=== PATIENT | female | born 1935 | race Caucasian/White ===

== ENCOUNTER 2019-12-25 16:23 | Outpatient (CLI) | payer MEDICARE, BC | END 2019-12-25 16:24 | disposition critical access hospital (66) | LOC: EMS 16:23 | PROVIDERS: ATTEND Surgery | DX: M25.552 Pain in left hip (principal) | CPT/HCPCS: A0425; A0429 ==

== ENCOUNTER 2019-12-25 17:12 | Inpatient (IN) | payer MEDICARE, BC ==
[2019-12-25] MEDS ORDERED: MORPHINE 2 MG/ML CARPUJECT IVP STA (17:32)
[2019-12-25] MEDS ORDERED: ONDANSETRON 4 MG/2 ML VIAL IVP STA (17:32)
--- NOTE | 2019-12-25 17:40 | ED Physician Documentation ---
History of Present Illness - Stated complaint Stated Complaint: GLF - Chief complaint Chief Complaint: Trauma Abd - History obtained from History obtained from: Patient - Additonal information Additional information: Pt presents w/ left groin pain after falling 2 days ago and again today. Per , pt fell two days ago in the garage. He thought she just "pulled something" so he got her a wheelchair to use at home. Today she was at home and was upstairs. Pt got out of the wheelchair and tried to go to the restroom and slipped while sitting down. She fell to the ground unwitnessed. Did not hit her head and no loc. She states she stumbled when she was going to site down and denies any dizziness or prodromal sx. She was unable to get up due to the pain. Pt points to the vaginal area as the location of the pain. 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 hx/o htn, being evaluated by pcp for early dementia lives in [facility] w/ , but receives most primary care at Review of Systems Constitutional: reports: Reviewed and negative Cardiac: reports: Reviewed and negative Respiratory: reports: Reviewed and negative GI: reports: Reviewed and negative Skin: reports: Reviewed and negative Musculoskeletal: reports: Extremity pain, Joint pain, Other (nwb due to left hip pain) Neurologic: reports: Reviewed and negative Psychiatric: reports: Reviewed and negative Endocrine: reports: Reviewed and negative PD PAST MEDICAL HISTORY - Past Medical History Past Medical History: Yes Cardiovascular: None Respiratory: Pneumonia Neuro: Dementia Endocrine/Autoimmune: None Psych: Anxiety Musculoskeletal: Osteoporosis - Past Surgical History Past Surgical History: Yes Derm: Skin cancer surgery - Present Medications Home Medications: Ambulatory Orders Medication Instructions Recorded Confirmed PARoxetine HCL [Paroxetine HCl] 5 mg PO DAILY 09/25/12 12/25/19 lisinopriL [Lisinopril] 5 mg PO DAILY 09/25/12 12/25/19 - Allergies Allergies/Adverse Reactions: Allergies Allergy/AdvReac Type Severity Reaction Status Date / Time No Known Drug Allergies Allergy Verified 12/25/19 17:17 - Social History Does the pt smoke?: No Smoking Status: Never smoker Does the pt drink ETOH?: No Does the pt have substance abuse?: No PD ED PE NORMAL - Vitals Vital signs reviewed: Yes - General General: Alert and oriented X 3, No acute distress, Well developed/nourished - HEENT HEENT: Atraumatic, PERRL, EOMI, Moist mucous membranes, Pharynx benign - Neck Neck: Supple, no meningeal sign, No bony TTP, No JVD - Cardiac Cardiac: RRR, No murmur, No gallop, No rub, Strong equal pulses - Respiratory Respiratory: No respiratory distress, Clear bilaterally - Abdomen Abdomen: Normal bowel sounds, Soft, Non tender, Non distended - Female Female : Other (normal ext vaginal area) - Back Back: No CVA TTP, No spinal TTP - Derm Derm: Normal color, Warm and dry, No rash - Extremities Extremities: Other (left hip and pelvis ttp w/ ext rotation of the left hip) - Neuro Neuro: Alert and oriented X 3 Eye Opening: Spontaneous Motor: Obeys Commands Verbal: Oriented (pt is oriented x 3 but does exhibit some forgetfulness, mild confusion) GCS Score: 15 - Psych Psych: Normal mood, Normal affect Results - Vitals Vitals: Vital Signs - 24 hr 12/25/19 12/25/19 12/25/19 17:13 17:48 18:38 Temperature 37.5 C Heart Rate 107 H 101 H 99 Respiratory 20 13 13 Rate Blood Pressure 183/110 H 183/110 H 160/91 H O2 Saturation 97 100 98 Oxygen O2 Source Room air - EKG (time done) No standard instances Rate: Rate (enter#) (95) Rhythm: NSR [place]: Normal Intervals: Normal CO Ischemia: Normal ST segments Computer interpretation: Agree with computer - Labs Labs: Laboratory Tests 12/25/19 12/25/19 12/25/19 17:45 17:45 17:52 WBC 9.8 RBC 4.97 Hgb 14.6 Hct 42.2 MCV 84.9 MCH 29.4 MCHC 34.6 RDW 12.6 Plt Count 197 MPV 10.6 Neut # (Auto) 8.3 H Lymph # (Auto) 0.7 L [place] # (Auto) 0.6 Eos # (Auto) 0.1 Baso # (Auto) 0.0 Absolute Nucleated RBC 0.00 Nucleated RBC % 0.0 Sodium 133 L Potassium 3.7 Chloride 100 L Carbon Dioxide 21 Anion Gap 12.0 BUN 22 H Creatinine 1.1 H Estimated GFR (MDRD) 47 L Glucose 137 H Calcium 9.6 Urine Color YELLOW Urine Clarity CLEAR Urine pH 7.5 Ur Specific [place] 1.020 Urine Protein NEGATIVE Urine Glucose (UA) NEGATIVE Urine Ketones TRACE Urine Occult Blood SMALL H Urine Nitrite NEGATIVE Urine Bilirubin NEGATIVE Urine Urobilinogen 0.2 (NORMAL) Ur Leukocyte Esterase NEGATIVE Urine RBC 0-5 Urine WBC 0-3 Ur Squamous Epith Cells RARE Squamous Urine Bacteria Rare Ur Microscopic Review INDICATED Urine Culture Comments NOT INDICATED - Rads (name of study) No standard instances Radiology: See rad report PD MEDICAL DECISION MAKING - ED course Complexity details: reviewed results, re-evaluated patient, considered differential, d/w patient, d/w family ED course: Pt presented after a fall in the bathroom and was noted to have a left femoral neck fracture. No other injuries, reassuring labs. I spoke w/ Dr. Love who kindly agreed to see patient tomorrow for likely surgical intervention. Dr. Kelly has accepted pt to the hospitalist service for admission. I reviewed xray findings w/ pt and and plan for admission and likely surgery tomorrow. Departure - Departure Disposition: [facility] DC/Xfer Clinical Impression: Femoral neck fracture Qualifiers: Encounter type: initial encounter Fracture type: closed Laterality: left Qualified Code(s): S72.002A - Fracture of unspecified part of neck of left femur, initial encounter for closed fracture Condition: Good
--- NOTE | 2019-12-25 18:07 | XRAY Report ---
PROCEDURE: Chest 1 View X-Ray INDICATIONS: chest pain TECHNIQUE: One view of the chest was acquired. COMPARISON: None. FINDINGS: Surgical changes and devices: None. Lungs and pleura: No pleural effusions or pneumothorax. Diffuse interstitial prominence. No focal con solidation. Minimal streaky bibasilar opacities likely representing atelectasis. Mediastinum: Mediastinal contours appear normal. Heart size is normal. Bones and chest wall: No suspicious bony lesions. Overlying soft tissues appear unremarkable. IMPRESSION: Minimal diffuse interstitial prominence is nonspecific and may represent an inflammatory/infectious p rocess versus hypoventilatory changes as its appearance is less prominent with the more aerated image of the chest. No focal consolidations. Consider dedicated upright PA and lateral views of the chest when patient is able. Reviewed by: Abdullahi Lamar MD on 12/25/2019 6:06 PM [facility] Approved by: Abdullahi Lamar MD on 12/25/2019 6:06 PM PST Station ID: [id number]
--- NOTE | 2019-12-25 18:10 | XRAY Report ---
PROCEDURE: Hip w/Pelvis 2-3V LT INDICATIONS: fall, left hip pain TECHNIQUE: AP pelvis with lateral view(s) of the bilateral hip(s). COMPARISON: None. FINDINGS: Bones: There is a subcapital left femoral neck fracture with impaction of the distal fracture fragmen t. There is also mild lateral displacement of the distal fracture fragment. Pelvic ring appears intac t. No suspicious bony lesions. Soft tissues: The visualized bowel gas pattern is normal. No suspicious soft tissue calcifications. IMPRESSION: Displaced, impacted left subcapital femoral neck fracture. Reviewed by: Abdullahi Lamar MD on 12/25/2019 6:09 PM PST Approved by: Abdullahi Lamar MD on 12/25/2019 6:09 PM PST Station ID: [id number]
[2019-12-25 18:15] LABS: BASOPHILS % (AUTO) 0.3 %; EOSINOPHILS # (AUTO) 0.1 10^3/uL (0.0-0.7); EOSINOPHILS % (AUTO) 0.6 %; HGB - HEMOGLOBIN 14.6 g/dL (12.0-16.0); LYMPHOCYTES # (AUTO) 0.7 10^3/uL (1.5-3.5); LYMPHOCYTES % (AUTO) 7.6 %; MEAN CORPUSCULAR HEMOGLOBIN 29.4 pg (27.0-31.0); MEAN CORPUSCULAR HGB CONC 34.6 g/dL (32.0-36.0); MEAN CORPUSCULAR VOLUME 84.9 fL (81.0-99.0); MEAN PLATELET VOLUME 10.6 fL (7.9-10.8); MONOCYTES # (AUTO) 0.6 10^3/uL (0.0-1.0); MONOCYTES % (AUTO) 6.5 %; NEUTROPHILS # (AUTO) 8.3 10^3/uL (1.5-6.6); NEUTROPHILS % (AUTO) 84.7 %; PLT - PLATELET COUNT 197 10^3/uL (130-450); RED BLOOD COUNT 4.97 10^6/uL (4.20-5.40); RED CELL DISTRIBUTION WIDTH 12.6 % (12.0-15.0); WHITE BLOOD COUNT 9.8 x10^3/uL (4.8-10.8)
[2019-12-25 18:15] LABS: BILIRUBIN,URINE NEGATIVE (NEGATIVE); GLUCOSE, URINE (UA) NEGATIVE (NEGATIVE); KETONES,URINE (UA) TRACE mg/dL (NEGATIVE); LEUKOCYTE ESTERASE, URINE NEGATIVE (NEGATIVE); NITRITE,URINE NEGATIVE (NEGATIVE); OCCULT BLOOD,URINE SMALL (NEGATIVE); PH,URINE 7.5 PH (5.0-7.5); PROTEIN,URINE NEGATIVE (NEGATIVE); UROBILINOGEN,URINE 0.2 (NORMAL) E.U./dL (NORMAL)
[2019-12-25 18:21] LABS: CLARITY,URINE CLEAR (CLEAR)
[2019-12-25 18:23] LABS: CALCIUM 9.6 mg/dL (8.5-10.3); CREATININE 1.1 mg/dL (0.4-1.0)
[2019-12-25 18:33] LABS: BACTERIA,URINE Rare /HPF (None Seen); RBC,URINE 0-5 /HPF (0-5); SQUAMOUS EPITHELIAL CELL,UR RARE Squamous (<= Few)
[2019-12-25] MEDS ORDERED: ACETAMINOPHEN 325 MG TABLET PO PRN (19:16)
[2019-12-25] MEDS ORDERED: ONDANSETRON 4 MG/2 ML VIAL IVP PRN (19:16)
[2019-12-25] MEDS ORDERED: SODIUM CHLORIDE FLUSH 0.9% 10 ML SYRINGE IVP PRN (19:16)
--- NOTE | 2019-12-25 19:25 | HISTORY & PHYSICAL EXAMINATION ---
Chief Complaint - Chief Complaint Chief Complaint: Left hip pain status post mechanical fall History of Present Illness - Admitted From Admitted From:: [facility] ED - History Obtained From Records Reviewed: Yes History obtained from: Patient - History of Present Illness HPI Comment/Other: Patient is an 84-year-old female with medical history significant for hypertension and depression who was brought to the ED after a mechanical fall today. She was in the bathroom and went to stand when she slipped and fell. She did not hit her head or blackout. It appears she has been having a difficult time walking lately and has been prone to falls consequently her got a wheelchair for her to use to get around. Work-up in the ED included an x-ray of the hip and pelvis which showed a left impacted/displaced fracture of the femoral neck. Consequently the patient was presented for admission for further treatment. At bedside she denied chest pain, dyspnea, abdominal pain, nausea, vomiting, fever or chills. She rates her pain 9 out of 10 currently. The rest of her history is unremarkable. History - Past Medical History Cardiovascular: reports: Hypertension Neuro: reports: Dementia Endocrine/Autoimmune: reports: None Psych: reports: Depression, Anxiety Musculoskeletal: reports: Osteoporosis MRSA Hx?: No - Past Surgical History HEENT: reports: Tonsil/Adenoidectomy Derm: reports: Skin cancer surgery - Family & Social History Family History: Father: Cancer (unspecified) Living arrangement: At home Social History Notes: Patient lives at home with her . She does not smoke, drink alcohol or use recreational substances. She has been having difficulties getting around so has mostly been using a wheelchair. - POLST POLST Status: Full Code Meds/Allgy - Home Medications Home Medications: Ambulatory Orders Medication Instructions Recorded Confirmed PARoxetine HCL [Paroxetine HCl] 5 mg PO DAILY 09/25/12 12/25/19 lisinopriL [Lisinopril] 5 mg PO DAILY 09/25/12 12/25/19 - Allergies Allergies/Adverse Reactions: Allergies Allergy/AdvReac Type Severity Reaction Status Date / Time No Known Drug Allergies Allergy Verified 12/25/19 17:17 Review of Systems - Constitutional Constitutional: denies: Fever, Chills - Eyes Eyes: denies: Pain - Ears, Nose & Throat Ears, Nose & Throat: denies: Ear pain - Cardiovascular Cariovascular: denies: Irregular heart rate, Palpitations, Chest pain, Edema, Lightheadedness, Syncope - Respiratory Respiratory: denies: Cough, Wheezing, SOB at rest, SOB with exertion - Gastrointestinal Gastrointestinal: denies: Abdominal pain, Abdominal distention, Constipation, Diarrhea, Nausea, Vomiting - Genitourinary Genitourinary: denies: Dysuria, Frequency, Urgency, Hematuria - Musculoskeletal Musculoskeletal: denies: Muscle pain, Back pain, Muscle aches - Integumentary Integumentary: denies: Rash, Pruritis, Lesions, Dryness - Neurological Neurological: denies: General weakness, Focal weakness, Headache - Psychiatric Psychiatric: reports: Depression. denies: Anxiety - Endocrine Endocrine: denies: Polyuria, Polydypsia - Hematologic/Lymphatic Hematologic/Lymphatic: denies: Anemia, Bruising Prior Level of Functionality: Patient lives at home with her . She does not smoke, drink alcohol or use recreational substances. She has been having difficulties getting around so has mostly been using a wheelchair. Exam - Vital Signs Vital Signs: Vital Signs x48h Temp Pulse Resp BP Pulse Ox 12/25/19 18:38 99 13 160/91 H 98 12/25/19 17:48 101 H 13 183/110 H 100 12/25/19 17:13 37.5 C 107 H 20 183/110 H 97 - Physical Exam General Appearance: positive: Alert, Moderate distress Eyes Bilateral: positive: PERRL, EOMI ENT: positive: No signs of dehydration Neck: positive: No JVD, Trachea midline Respiratory: positive: Chest non-tender, No respiratory distress, Breath sounds nml. negative: Wheezes, Rales, Rhonchi Cardiovascular: positive: Regular rate & rhythm Abdomen: positive: Non-tender, Nml bowel sounds, No distention. negative: Guarding, Rebound Skin: positive: Color nml, No rash, Warm, Dry Extremities: positive: Nml appearance, No pedal edema Neurologic/Psychiatric: positive: Oriented x3, Mood/affect nml Conclusion/Plan - Problem List (1) Femoral neck fracture Conclusion/Plan: Left-sided. Displaced/impacted subcapital femoral neck fracture. Patient will be made n.p.o. at midnight. Patient receiving IV hydration with D5 W half-normal saline with 20 mEq of potassium chloride at 125ml/hr We will manage pain with Tylenol, oxycodone and all morphine. Dr. Tre Love with orthopedic surgery was contacted by the ED and expected to see the patient in consult. Qualifiers: Encounter type: initial encounter Fracture type: closed Laterality: left Qualified Code(s): S72.002A - Fracture of unspecified part of neck of left fem ur, initial encounter for closed fracture (2) Hypertension Conclusion/Plan: Patient's blood pressure is currently elevated between 160 and 180 systolically. This is likely exacerbated by pain. Anticipating improvement in blood pressure once pain is appropriately addressed. Patient is on lisinopril at home. Will continue. If indicated/needed we will also order a as needed medication for blood pressure. (3) Depression Conclusion/Plan: Patient is on Paxil 5 mg p.o. daily. Will continue. (4) Pre-op evaluation Conclusion/Plan: According to the NSQIP surgical risk calculator, the patient's risk for serious complications during surgery is 5.0%. Her risk of any complication during surgery is 5.3%. These are considerably below average risk of 11.5 and 12.5% respectively. The predicted length of hospital stay is 2.5 days. Twelve-lead EKG done in the ED showed poor R wave progression and an old inferior infarct. Patient currently does not have any chest pain. Patient is not on any cardiovascular medications except for lisinopril. Patient is currently medically optimized for surgery. - Lab Results Fish Bones: 12/25/19 17:45 12/25/19 17:45 Core Measures - Anticipated LOS I expect patient to be DC'd or transferred within 96 hours.: Yes - DVT/VTE - Prophylaxis VTE/DVT Device ordered at admit?: Yes
[2019-12-25 19:36] LABS: BILIRUBIN,DIRECT 0.2 mg/dL (0.1-0.5); TOTAL PROTEIN 7.8 g/dL (6.7-8.2)
[2019-12-25] MEDS: D5NS W/20 MEQ KCL 1,000 ML IV SCH (19:37)
[2019-12-25 19:48] LABS: INR 1.2 (0.8-1.2)
[2019-12-25 20:06] LABS: C. PNEUMONIAE- RESP PCR PANEL NOT DETECTED
[2019-12-25] MEDS: oxyCODONE 5 MG TABLET PO PRN (21:42)
[2019-12-25] MEDS: SODIUM CHLORIDE FLUSH 0.9% 10 ML SYRINGE IVP SCH (23:19)
[2019-12-26] MEDS: D5NS W/20 MEQ KCL 1,000 ML IV SCH (03:23)
[2019-12-26] MEDS: MORPHINE 2 MG/ML CARPUJECT IVP PRN ×3 (03:27→13:12)
[2019-12-26 05:45] LABS: BASOPHILS % (AUTO) 0.3 %; EOSINOPHILS # (AUTO) 0.2 10^3/uL (0.0-0.7); EOSINOPHILS % (AUTO) 3.6 %; HGB - HEMOGLOBIN 12.9 g/dL (12.0-16.0); LYMPHOCYTES # (AUTO) 1.4 10^3/uL (1.5-3.5); LYMPHOCYTES % (AUTO) 21.8 %; MEAN CORPUSCULAR HEMOGLOBIN 29.4 pg (27.0-31.0); MEAN CORPUSCULAR VOLUME 86.3 fL (81.0-99.0); MEAN PLATELET VOLUME 9.7 fL (7.9-10.8); MONOCYTES # (AUTO) 0.7 10^3/uL (0.0-1.0); MONOCYTES % (AUTO) 11.1 %; NEUTROPHILS % (AUTO) 62.9 %; PLT - PLATELET COUNT 158 10^3/uL (130-450); RED BLOOD COUNT 4.39 10^6/uL (4.20-5.40); RED CELL DISTRIBUTION WIDTH 12.7 % (12.0-15.0); WHITE BLOOD COUNT 6.3 x10^3/uL (4.8-10.8)
[2019-12-26 05:56] LABS: CALCIUM 8.7 mg/dL (8.5-10.3); CREATININE 0.9 mg/dL (0.4-1.0)
--- NOTE | 2019-12-26 07:43 | CONSULTATION NOTE ---
Referring Provider Consult Date: 12/26/19 Chief Complaint - Chief Complaint Chief Complaint: LBP and left hip pain History of Present Illness - Admitted From Admitted From:: ER - History Obtained From Records Reviewed: EMR History obtained from: patient - History of Present Illness HPI Comment/Other: The patient was seen on [facility] with regards to a chief complaint of LEFT hip pain. Her low back is actually more painful at this time. The patient sustained a UNWITNESSED fall onto their LEFT side. Simple mechanical fall. Unable to weight bear at the scene. The patient denies any shortness of breath, chest pain or palpitations precipitating the fall. Patient denies any open wounds, numbness or tingling to the extremity. The patient normally ambulates WITHOUT the use of a walking aid, and IS a community ambulator. Previous DEXA: several years ago. Previous osteoporotic or fragility fracture: None. Previous treatment for osteoporosis: none. the pain is located in the midline low back and groin and DOES RADIATE. SEVERE in nature. Aggravated with movement, alleviated with immobilization and rest. Denies numbness or tingling to the foot. History - Past Medical History Cardiovascular: reports: Hypertension Respiratory: reports: Pneumonia Neuro: reports: Dementia Endocrine/Autoimmune: reports: None Psych: reports: Depression, Anxiety Musculoskeletal: reports: Osteoporosis MRSA Hx?: No - Past Surgical History HEENT: reports: Tonsil/Adenoidectomy Derm: reports: Skin cancer surgery - Family & Social History Family History: Father: Cancer (unspecified) Living arrangement: At home Social History Notes: Patient lives at home with her . She does not smoke, drink alcohol or use recreational substances. She has been having difficulties getting around so has mostly been using a wheelchair. - POLST POLST Status: Full Code Meds/Allgy - Home Medications Home Medications: Ambulatory Orders Medication Instructions Recorded Confirmed PARoxetine HCL [Paroxetine HCl] 5 mg PO DAILY 09/25/12 12/25/19 lisinopriL [Lisinopril] 5 mg PO DAILY 09/25/12 12/25/19 - Allergies Allergies/Adverse Reactions: Allergies Allergy/AdvReac Type Severity Reaction Status Date / Time No Known Drug Allergies Allergy Verified 12/25/19 17:17 Review of Systems - Musculoskeletal Musculoskeletal: reports: Other (back pain) Exam - Vital Signs Reviewed Vital Signs: Yes Vital Signs: Vital Signs x48h Temp Pulse Pulse Resp BP Pulse Ox 12/26/19 05:00 36.9 C 83 14 127/69 96 12/26/19 00:09 37.5 C 99 13 98 12/25/19 23:39 37.2 C 92 22 123/66 95 - Physical Exam General Appearance: positive: No acute distress, Alert, Other (Pleasantly confused) Eyes Bilateral: positive: Normal inspection ENT: positive: ENT inspection nml Neck: positive: Nml inspection Respiratory: positive: No respiratory distress Cardiovascular: positive: Regular rate & rhythm, Other (Warm well perfused feet) Peripheral Pulses: positive: 2+ Abdomen: positive: Non-tender Back: positive: Other (Midline tenderness at the lower lumbar levels and over the sacrum.) Skin: positive: Other (Intact) Extremities: positive: Other (Left leg is slightly short. Range of motion not attempted due to pain.) Neurologic/Psychiatric: positive: Motor nml, Sensation nml, Other (Pleasantly confused) Conclusion/Plan - Diagnosis Diagnosis: Displaced left femoral neck fracture, Acute midline low back pain - Plan Plan: the patient has sustained a Lefthip fracture. Surgical intervention is indicated. We have discussed operative and non-operative management today. I have discussed this with the patients next of kin. We have discussed the pros and cons of total hip arthroplasty versus hemiarthroplasty, including the Increased risk of dislocation,increased operative time and blood loss with a total hip versus decreased risk of second surgery down the road. The patient's agrees that total hip arthroplasty is more likely to be the better option.We have discussed the risks of surgery in general including but not limited to the risk of anesthesia, infection, blood loss, and nerve or blood vessel damage. We have also discussed the risk of intra-operative fracture, ongoing pain, and leg length discrepancy. We have discussed strategies for prevention of infection, perioperative pain management and prevention of blood clots. After discussion of the risks and benefits of surgery, the patient has elected to proceed with Left total hip arthroplasty. No guarantees have been made. All questions have been answered. With regards to her midline lower back and sacral pain, CT scan has been ordered.Following surgery the patient will require a front wheeled walker for safe ambulation and activities of daily living - Lab Results Fish Bones: 12/26/19 05:17 12/26/19 05:17 - Diagnostic Imaging Results Diagnostic Imaging Results: positive: Final report reviewed, Read independently
[2019-12-26] MEDS ORDERED: lisinopriL 5 MG TABLET PO SCH (09:00)
[2019-12-26] MEDS: oxyCODONE 5 MG TABLET PO PRN (09:07)
[2019-12-26] MEDS ORDERED: D5NS W/20 MEQ KCL 1,000 ML IV SCH (10:31)
--- NOTE | 2019-12-26 10:37 | CT Report ---
PROCEDURE: PELVIS WO INDICATIONS: sacral pain after fall TECHNIQUE: Noncontrast 3 mm axial sections acquired through the bony pelvis, with coronal and sagittal reformatt ing. For radiation dose reduction, the following was used: automated exposure control, adjustment of mA and/or kV according to patient size. COMPARISON: Correlation is made with the prior hip and pelvis radiographs, 12/25/2019. Correlation i s also made with the accompanying lumbar spine CT, 12/26/2019. FINDINGS: Image quality: Excellent. Bones: There is a comminuted, moderately displaced, impacted fracture of the left femoral neck. No d islocation can be seen. No fractures of the bones of the pelvis can be seen. In this patient with this given history, scrutiny is given to the sacrum. No fractures of the sacrum or coccyx can be seen. 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 Degenerative changes are seen throughout, including involving t he visualized lower lumbar spine, which are worst at the L5-S1 level. Soft tissues: A Sykes catheter is seen, decompressing the bladder. No dilated loops of small bowel a re seen. No free air or significant free fluid can be seen. No inguinal hernias or enlarged inguinal lymph nodes are seen. The uterus is atrophic. No adnexal masses are seen. IMPRESSION: Comminuted, impacted left femoral neck fracture. No abnormality or of the sacrum or coccyx can be seen. Incidental note is made of: Osteitis pubis Sykes catheter Focal L5-S1 degenerative change Reviewed by: Don Mejia MD on 12/26/2019 9:36 AM [facility] Approved by: Don Mejia MD on 12/26/2019 9:36 AM [facility] Station ID: [id number]
--- NOTE | 2019-12-26 10:42 | CT Report ---
PROCEDURE: LUMBAR SPINE WO INDICATIONS: midline lumbar pain after fall TECHNIQUE: Noncontrast 3 mm thick sections acquired from the T12 level to the sacrum. Sagittal and coronal refo rmats were constructed. For radiation dose reduction, the following was used: automated exposure co ntrol, adjustment of mA and/or kV according to patient size. COMPARISON: Correlation is made with the accompanying pelvis CT, 12/26/2019. FINDINGS: Image quality: Excellent. Bones: There is normal bony alignment. No acute vertebral body compression fractures. No suspiciou s lytic or blastic bony lesions. Central spinal caliber is of normal overall caliber. No pars defec ts. T12-L1: No significant abnormality is seen. L1-L2: The disc height is relatively well preserved. Moderate disc bulge is seen, which is eccentr ic to the right. There is moderate bilateral neuroforaminal narrowing seen. Mild to moderate central canal narrowing is seen. L2-L3: The disc height is well-preserved. Moderate disc bulge is seen, which is eccentric to the r ight. Moderate bilateral neural foraminal narrowing is seen. Mild central canal narrowing is seen . L3-L4: The disc height is well-preserved. Moderate disc bulge is seen, which is eccentric to the le ft. Moderate bilateral neuroforaminal narrowing is seen, left worse than right. Mild to moderate cent ral canal narrowing is seen. L4-L5: The disc height is well-preserved. At least moderate disc bulge is seen, with a central disc protrusion. Moderate to prominent facet hypertrophy can be seen. There is moderate to severe bilater al neuroforaminal narrowing seen. Moderate to severe central canal narrowing is also seen. L5-S1: At least moderate loss of disc height can be seen. Endplate irregularity and sclerosis can b e seen. Bridging anterior osteophytes are seen. Moderate facet hypertrophy is seen. There is at l east moderate bilateral neuroforaminal narrowing seen, right worse than left. Mild central canal herman rowing is seen. Soft tissues: No retroperitoneal masses or hematomas. Visualized aorta is normal in caliber. There is a small hiatal hernia. IMPRESSION: No acute fractures are seen. Lower lumbar spine degenerative changes are seen. Incidental note is made of: Small hiatal hernia Reviewed by: Don Mejia MD on 12/26/2019 9:41 AM [facility] Approved by: Don Mejia MD on 12/26/2019 9:41 AM [facility] Station ID: [id number]
[2019-12-26] MEDS: PARoxetine 10 MG TABLET PO SCH (10:58)
[2019-12-26] MEDS: SODIUM CHLORIDE FLUSH 0.9% 10 ML SYRINGE IVP SCH ×5 (10:58→22:00)
--- NOTE | 2019-12-26 11:52 | ANESTHESIA ---
Pre-Anesthesia VS, & Labs - Diagnosis Diagnosis Displaced left femoral neck fracture, Acute midline low back pain - Procedure L anterior CHAIM Vital Signs: Temp Pulse Resp BP Pulse Ox 37.0 C 91 20 140/80 H 98 12/26/19 08:01 12/26/19 08:01 12/26/19 08:01 12/26/19 08:01 12/26/19 08:01 Height: 5 ft 4 in Weight (kg): 72.5 kg Body Mass Index: 27.4 BMI Classification: Overweight - NPO >8 hours - Is Patient ?: No - Lab Results Current Lab Results: Laboratory Tests 12/26/19 05:17: Sodium 136, Potassium 3.8, Chloride 104, Carbon Dioxide 23, Anion Gap 9.0, BUN 15, Creatinine 0.9, Estimated GFR (MDRD) 60 L, Glucose 143 H, Calcium 8.7 12/26/19 05:17: WBC 6.3, RBC 4.39, Hgb 12.9, Hct 37.9, MCV 86.3, MCH 29.4, MCHC 34.0, RDW 12.7, Plt Count 158, MPV 9.7, Neut # (Auto) 4.0, Lymph # (Auto) 1.4 L, Richardson # (Auto) 0.7, Eos # (Auto) 0.2, Baso # (Auto) 0.0, Absolute Nucleated RBC 0.00, Nucleated RBC % 0.0 12/25/19 20:12: Blood Type B POSITIVE, Antibody Screen NEGATIVE 12/25/19 19:45: PT 13.0 H, INR 1.2 12/25/19 17:45: Total Bilirubin 1.0, Direct Bilirubin 0.2, AST 29, ALT 29, Alkaline Phosphatase 64, Total Protein 7.8, Albumin 4.0, Globulin 3.8 12/25/19 17:45: Sodium 133 L, Potassium 3.7, Chloride 100 L, Carbon Dioxide 21, Anion Gap 12.0, BUN 22 H, Creatinine 1.1 H, Estimated GFR (MDRD) 47 L, Glucose 137 H, Calcium 9.6 12/25/19 17:45: WBC 9.8, RBC 4.97, Hgb 14.6, Hct 42.2, MCV 84.9, MCH 29.4, MCHC 34.6, RDW 12.6, Plt Count 197, MPV 10.6, Neut # (Auto) 8.3 H, Lymph # (Auto) 0.7 L, Richardson # (Auto) 0.6, Eos # (Auto) 0.1, Baso # (Auto) 0.0, Absolute Nucleated RBC 0.00, Nucleated RBC % 0.0 12/25/19 05:17: Blood Type Recheck B POSITIVE Lab results reviewed: Yes Fish Bones: 12/26/19 05:17 12/26/19 05:17 Home Medications and Allergies Home Medications: Ambulatory Orders Citalopram [CeleXA] 10 mg PO DAILY 12/26/19 Triamterene/Hydrochlorothiazid [Triamterene-Hctz 37.5-25 mg Tb] 1 tab PO DAILY 12/26/19 Active Medications Acetaminophen (Tylenol) 650 mg PO Q4HR PRN PRN Reason: Pain 1 to 4 Last Admin: 12/25/19 22:01 Dose: 650 mg Documented by: Calcium Citrate () 250 mg PO DAILY [facility] Cholecalciferol (Vitamin D3) 800 unit PO DAILY [facility] Potassium Chloride/Dextrose/Sod Cl () 1,000 mls @ 83.3 mls/hr IV .Q12H1M [facility] Last Admin: 12/26/19 11:07 Dose: 83.3 mls/hr Documented by: Lisinopril (Zestril) 5 mg PO DAILY [facility] Last Admin: 12/26/19 11:07 Dose: 5 mg Documented by: Morphine Sulfate (Morphine (Carpuject)) 2 mg IVP Q2HR PRN PRN Reason: Pain 8 to 10 Last Admin: 12/26/19 10:25 Dose: 2 mg Documented by: Ondansetron HCl (Zofran Inj) 4 mg IVP Q6HR PRN PRN Reason: Nausea / Vomiting Oxycodone HCl (Roxicodone) 5 mg PO Q4HR PRN PRN Reason: Pain 5 to 7 Last Admin: 12/26/19 09:07 Dose: 5 mg Documented by: Paroxetine HCl (Paxil) 5 mg PO DAILY [facility] Last Admin: 12/26/19 10:58 Dose: Not Given Documented by: Sodium Chloride (Normal Saline Flush 0.9%) 10 ml IVP PRN PRN PRN Reason: NEEDED PER PROVIDER ORDERS Sodium Chloride (Normal Saline Flush 0.9%) 10 ml IVP 0100,0900,1700 [facility] Last Admin: 12/26/19 10:58 Dose: Not Given Documented by: lisinopriL [Lisinopril] 5 mg PO DAILY 09/25/12 Citalopram [CeleXA] 10 mg PO DAILY 12/26/19 Triamterene/Hydrochlorothiazid [Triamterene-Hctz 37.5-25 mg Tb] 1 tab PO DAILY 12/26/19 Allergies/Adverse Reactions: Allergies Allergy/AdvReac Type Severity Reaction Status Date / Time No Known Drug Allergies Allergy Verified 12/25/19 17:17 Anes History & Medical History - Anesthetic History Anesthesia Complications: reports: No previous complications Family history of Anesthesia Complications: Denies Family history of Malignant Hyperthermia: Denies - Medical History Cardiovascular: reports: Hypertension, Valve disorder (aortic stenosis, mitral regurg) Pulmonary: reports: Pneumonia Gastrointestinal: reports: None Urinary: reports: None Neuro: reports: Dementia Musculoskeletal: reports: Osteoporosis Endocrine/Autoimmune: reports: None Smoking Status: Never smoker - Surgical History Eyes Ears Nose Throat (EENT): Tonsil/Adenoidectomy Dermatologic: Skin cancer surgery Exam General: Alert, Oriented x3, Cooperative Dental: WNL Mouth Openin Fingerbreadth Neck Mobility: Normal Mallampati classification: II Thyromental Distance: 4-6 cm Respiratory: Lungs clear, Normal breath sounds, No respiratory distress Cardiovascular: Regular rate, Other (systolic murmur) Neurological: Normal speech Mental/Cognitive Status: Alert/Oriented X3, Normal for patient Cognitive Status: Within normal limits Plan Anesthesia Type: General, Fascia Iliaca Block Regional Block: Per Surgeon's request for Post Op pain control Consent for Procedure(s) Verified and Reviewed: Yes Code Status: Attempt Resuscitation ASA classification: 3-Severe systemic disease Is this case an emergency?: No
--- NOTE | 2019-12-26 12:03 | PROVIDER PROGRESS NOTE ---
Assessment/Plan - Problem List (1) Femoral neck fracture Qualifiers: Encounter type: initial encounter Fracture type: closed Laterality: left Qualified Code(s): S72.002A - Fracture of unspecified part of neck of left femur, initial encounter for closed fracture Assessment/Plan: 12/25 pt report she had pain when she tried to move her left leg related to her fall, and left femoral neck fracture. surgeon plan to have surgery on this afternoon. Pt report she did not know she had heart murmur and did not have hx of cardiac problem beside her HTN. I report her ECHO finding, reserved EF but mi ld aortic stenosis and moderate to severe mitral and Tricuspid regurgitation to pt, discussed the risk of surgery and possible complication s/p of surgery. she understood the risk and want to go ahead to have surgery. I called pt's surgeon Dr. Love, and report the ECHO finding. anesthesiologist Derrick came to office, I report ECHO finding to him as well. (2) Hypertension stable, resume home meds (3) Depression Patient is on Paxil 5 mg p.o. daily. Will continue. (4) Pre-op evaluation night doctor had Patient is currently medically optimized for surgery. will followup after pt has surgery. - Current Meds Current Meds: Current Medications Generic Name Dose Route Start Last Admin Trade Name Freq PRN Reason Stop Dose Admin Acetaminophen 650 mg 12/25/19 19:16 12/25/19 22:01 Tylenol PO 650 mg Q4HR PRN Administration Pain 1 to 4 Potassium Chloride/Dextrose/Sod Cl 1,000 mls @ 83.3 mls/hr 12/26/19 10:31 12/26/19 11:07 IV 83.3 mls/hr .Q12H1M [facility] Administration Lisinopril 5 mg 12/26/19 09:00 12/26/19 11:07 Zestril PO 5 mg DAILY [facility] Administration Morphine Sulfate 2 mg 12/25/19 19:16 12/26/19 10:25 Morphine (Carpuject) IVP 2 mg Q2HR PRN Administration Pain 8 to 10 Oxycodone HCl 5 mg 12/25/19 19:16 12/26/19 09:07 Roxicodone PO 5 mg Q4HR PRN Administration Pain 5 to 7 Paroxetine HCl 5 mg 12/26/19 09:00 12/26/19 10:58 Paxil PO Not Given DAILY [facility] Sodium Chloride 10 ml 12/26/19 01:00 12/26/19 10:58 Normal Saline Flush 0.9% IVP Not Given 0100,0900,1700 [facility] - Lab Result Fish Bone Diagrams: 12/26/19 05:17 12/26/19 05:17 - Additional Planning My Orders: My Active Orders 12/26/19 Osteoporosis Consult [CONS] Routine 12/26/19 08:50 Echo Transthoracic Complete [ECHO] Stat 12/26/19 10:31 D5ns W/20 Meq KCl 1,000 ml IV 83.3 mls/hr 12/27/19 09:00 Calcium Citrate 250 mg PO DAILY Cholecalciferol [Vitamin D3] 800 unit PO DAILY Subjective - Subjective Patient Reports: Feeling Better Objective Vital Signs: Vital Signs - 24 hr 12/25/19 12/25/19 12/25/19 17:13 17:48 18:38 Temperature 37.5 C Heart Rate 107 H 101 H 99 Heart Rate [ Brachial] Respiratory 20 13 13 Rate Blood Pressure 183/110 H 183/110 H 160/91 H Blood Pressure [Left Brachial artery] O2 Saturation 97 100 98 12/25/19 12/25/19 12/25/19 19:30 20:43 23:39 Temperature 37.2 C 37.2 C Heart Rate Heart Rate [ 100 93 92 Brachial] Respiratory 16 22 Rate Blood Pressure Blood Pressure 176/94 H 136/77 H 123/66 [Left Brachial artery] O2 Saturation 97 95 12/26/19 12/26/19 12/26/19 00:09 05:00 08:00 Temperature 37.5 C 36.9 C 37.0 C Heart Rate 99 Heart Rate [ 83 91 Brachial] Respiratory 13 14 20 Rate Blood Pressure Blood Pressure 127/69 140/80 H [Left Brachial artery] O2 Saturation 98 96 98 12/26/19 08:01 Temperature 37.0 C Heart Rate Heart Rate [ 91 Brachial] Respiratory 20 Rate Blood Pressure Blood Pressure 140/80 H [Left Brachial artery] O2 Saturation 98 Oxygen O2 Source Room air I&O (Last 24 Hrs): Intake and Output Totals x24h 12/24/19 12/25/19 12/26/19 23:59 23:59 23:59 Intake Total 855.356 1581.247 Output Total 600 900 Balance -191.667 681.247 General: Alert, Oriented x3, No acute distress HEENT: Atraumatic Neck: Supple Lymphatic: no adenopathy Neuro: Alert, Non Focal, Oriented Times 3 Cardiovascular: Regular rate, Normal S1, Normal S2 Respiratory: Chest non-tender, No respiratory distress, Breath sounds nml Abdomen: Normal bowel sounds, Soft Extremities: Normal pulses - Results Results: Laboratory Results WBC 6.3 x10^3/uL (4.8-10.8) 12/26/19 05:17 RBC 4.39 10^6/uL (4.20-5.40) 12/26/19 05:17 Hgb 12.9 g/dL (12.0-16.0) 12/26/19 05:17 Hct 37.9 % (37.0-47.0) 12/26/19 05:17 MCV 86.3 fL (81.0-99.0) 12/26/19 05:17 MCH 29.4 pg (27.0-31.0) 12/26/19 05:17 MCHC 34.0 g/dL (32.0-36.0) 12/26/19 05:17 RDW 12.7 % (12.0-15.0) 12/26/19 05:17 Plt Count 158 10^3/uL (130-450) 12/26/19 05:17 MPV 9.7 fL (7.9-10.8) 12/26/19 05:17 Neut # (Auto) 4.0 10^3/uL (1.5-6.6) 12/26/19 05:17 Lymph # (Auto) 1.4 10^3/uL (1.5-3.5) L 12/26/19 05:17 Russell # (Auto) 0.7 10^3/uL (0.0-1.0) 12/26/19 05:17 Eos # (Auto) 0.2 10^3/uL (0.0-0.7) 12/26/19 05:17 Baso # (Auto) 0.0 10^3/uL (0.0-0.1) 12/26/19 05:17 Absolute Nucleated RBC 0.00 x10^3/uL 12/26/19 05:17 Nucleated RBC % 0.0 /100WBC 12/26/19 05:17 PT 13.0 secs (9.9-12.6) H 12/25/19 19:45 INR 1.2 (0.8-1.2) 12/25/19 19:45 Sodium 136 mmol/L (135-145) 12/26/19 05:17 Potassium 3.8 mmol/L (3.5-5.0) 12/26/19 05:17 Chloride 104 mmol/L (101-111) 12/26/19 05:17 Carbon Dioxide 23 mmol/L (21-32) 12/26/19 05:17 Anion Gap 9.0 (6-13) 12/26/19 05:17 BUN 15 mg/dL (6-20) 12/26/19 05:17 Creatinine 0.9 mg/dL (0.4-1.0) 12/26/19 05:17 Estimated GFR (MDRD) 60 (>89) L 12/26/19 05:17 Glucose 143 mg/dL (70-100) H 12/26/19 05:17 Calcium 8.7 mg/dL (8.5-10.3) 12/26/19 05:17 Total Bilirubin 1.0 mg/dL (0.2-1.0) 12/25/19 17:45 Direct Bilirubin 0.2 mg/dL (0.1-0.5) 12/25/19 17:45 AST 29 IU/L (10-42) 12/25/19 17:45 ALT 29 IU/L (10-60) 12/25/19 17:45 Alkaline Phosphatase 64 IU/L (42-121) 12/25/19 17:45 Total Protein 7.8 g/dL (6.7-8.2) 12/25/19 17:45 Albumin 4.0 g/dL (3.2-5.5) 12/25/19 17:45 Globulin 3.8 g/dL (2.1-4.2) 12/25/19 17:45 Urine Color YELLOW 12/25/19 17:52 Urine Clarity CLEAR (CLEAR) 12/25/19 17:52 Urine pH 7.5 PH (5.0-7.5) 12/25/19 17:52 Ur Specific Fairborn 1.020 (1.002-1.030) 12/25/19 17:52 Urine Protein NEGATIVE mg/dL (NEGATIVE) 12/25/19 17:52 Urine Glucose (UA) NEGATIVE mg/dL (NEGATIVE) 12/25/19 17:52 Urine Ketones TRACE mg/dL (NEGATIVE) 12/25/19 17:52 Urine Occult Blood SMALL (NEGATIVE) H 12/25/19 17:52 Urine Nitrite NEGATIVE (NEGATIVE) 12/25/19 17:52 Urine Bilirubin NEGATIVE (NEGATIVE) 12/25/19 17:52 Urine Urobilinogen 0.2 (NORMAL) E.U./dL (NORMAL) 12/25/19 17:52 Ur Leukocyte Esterase NEGATIVE (NEGATIVE) 12/25/19 17:52 Urine RBC 0-5 /HPF (0-5) 12/25/19 17:52 Urine WBC 0-3 /HPF (0-5) 12/25/19 17:52 Ur Squamous Epith Cells RARE Squamous (<= Few) 12/25/19 17:52 Urine Bacteria Rare /HPF (None Seen) 12/25/19 17:52 Ur Microscopic Review INDICATED 12/25/19 17:52 Urine Culture Comments NOT INDICATED 12/25/19 17:52 Nasal Adenovirus (PCR) NOT DETECTED 12/25/19 19:05 Nasal B. parapertussis DNA (PCR) NOT DETECTED 12/25/19 19:05 Nasal Coronavir 229E PCR NOT DETECTED 12/25/19 19:05 Nasal Coronavir HKU1 PCR NOT DETECTED 12/25/19 19:05 Nasal Coronavir NL63 PCR NOT DETECTED 12/25/19 19:05 Nasal Coronavir OC43 PCR NOT DETECTED 12/25/19 19:05 Nasal Enterovir/Rhinovir PCR NOT DETECTED 12/25/19 19:05 Nasal Influenza B PCR NOT DETECTED 12/25/19 19:05 Nasal Influenza A PCR NOT DETECTED 12/25/19 19:05 Nasal Parainfluen 1 PCR NOT DETECTED 12/25/19 19:05 Nasal Parainfluen 2 PCR NOT DETECTED 12/25/19 19:05 Nasal Parainfluen 3 PCR NOT DETECTED 12/25/19 19:05 Nasal Parainfluen 4 PCR NOT DETECTED 12/25/19 19:05 Nasal RSV (PCR) NOT DETECTED 12/25/19 19:05 Nasal B.pertussis DNA PCR NOT DETECTED 12/25/19 19:05 Nasal C.pneumoniae (PCR) NOT DETECTED 12/25/19 19:05 Sae Human Metapneumo PCR NOT DETECTED 12/25/19 19:05 Nasal M.pneumoniae (PCR) NOT DETECTED 12/25/19 19:05 Nasal SARS-CoV-2 (PCR) NOT DETECTED 12/25/19 19:05 Blood Type B POSITIVE 12/25/19 20:12 Blood Type Recheck B POSITIVE 12/25/19 05:17 Antibody Screen NEGATIVE 12/25/19 20:12 ABX Reporting Has patient been on IV antibiotics over the past 48 hours?: No Current Medications - Current Medications Current Medications: Active Medications Acetaminophen (Tylenol) 650 mg PO Q4HR PRN PRN Reason: Pain 1 to 4 Last Admin: 12/25/19 22:01 Dose: 650 mg Documented by: Calcium Citrate () 250 mg PO DAILY [facility] Cholecalciferol (Vitamin D3) 800 unit PO DAILY [facility] Potassium Chloride/Dextrose/Sod Cl () 1,000 mls @ 83.3 mls/hr IV .Q12H1M [facility] Last Admin: 12/26/19 11:07 Dose: 83.3 mls/hr Documented by: Lisinopril (Zestril) 5 mg PO DAILY [facility] Last Admin: 12/26/19 11:07 Dose: 5 mg Documented by: Morphine Sulfate (Morphine (Carpuject)) 2 mg IVP Q2HR PRN PRN Reason: Pain 8 to 10 Last Admin: 12/26/19 10:25 Dose: 2 mg Documented by: Ondansetron HCl (Zofran Inj) 4 mg IVP Q6HR PRN PRN Reason: Nausea / Vomiting Oxycodone HCl (Roxicodone) 5 mg PO Q4HR PRN PRN Reason: Pain 5 to 7 Last Admin: 12/26/19 09:07 Dose: 5 mg Documented by: Paroxetine HCl (Paxil) 5 mg PO DAILY [facility] Last Admin: 12/26/19 10:58 Dose: Not Given Documented by: Sodium Chloride (Normal Saline Flush 0.9%) 10 ml IVP PRN PRN PRN Reason: NEEDED PER PROVIDER ORDERS Sodium Chloride (Normal Saline Flush 0.9%) 10 ml IVP 0100,0900,1700 [facility] Last Admin: 12/26/19 10:58 Dose: Not Given Documented by: lisinopriL [Lisinopril] 5 mg PO DAILY 09/25/12 Citalopram [CeleXA] 10 mg PO DAILY 12/26/19 Triamterene/Hydrochlorothiazid [Triamterene-Hctz 37.5-25 mg Tb] 1 tab PO DAILY 12/26/19
[2019-12-26] MEDS ORDERED: ROPIVACAINE 0.5% PF 20 ML AMPULE ONE ×2 (13:25→13:46)
[2019-12-26] MEDS ORDERED: KETOROLAC 30 MG/ML VIAL ONE (13:26)
--- NOTE | 2019-12-26 13:29 | PHARMACY PROGRESS NOTE ---
- Best Possible Medication History Admit Date and Time: 12/25/19 1844 Processed by: Pharmacy Medication History completed: Yes Patient Interview: Completed Secondary Source(s): Caregiver (PATIENT INTERVIEWED BY PHARMACY. PATIENT AND SPOUSE ABLE TO CONFIRM HOME MEDICATIONS ), Pharmacy records, Insurance records As the person ultimately responsible for medication therapy, providers are able to order a medication from an existing home medication list in [facility] via the "Reconcile Routine" prior to Confirmation of that medication by high school learning support teacher. Such practice is discouraged except when the physician, in their clinical judgment, deems that a medical need exists for a medication without regard to previous use.
[2019-12-26] MEDS ORDERED: EPINEPHrine 1 MG/ML AMP ONE (13:33)
[2019-12-26] MEDS ORDERED: LIDOCAINE-MPF 2% 5 ML VIAL IM ONE (14:07)
[2019-12-26] MEDS ORDERED: ePHEDrine 50 MG/ML VIAL IVP ONE (14:07)
[2019-12-26] MEDS ORDERED: ROCURONIUM 50 MG/5 ML VIAL IVP ONE (14:07)
[2019-12-26] MEDS ORDERED: DEXAMETHASONE 4 MG/ML VIAL IVP ONE (14:07)
[2019-12-26] MEDS ORDERED: ACETAMINOPHEN 1,000 MG/100 ML 100 ML IV ONE (14:07)
[2019-12-26] MEDS ORDERED: TRANEXAMIC ACID 1,000 MG/10 ML VIAL IV ONE (14:07)
[2019-12-26] MEDS ORDERED: PHENYLEPHRINE 10 MG/ML VIAL IV ONE (14:07)
[2019-12-26] MEDS ORDERED: ONDANSETRON 4 MG/2 ML VIAL IVP ONE (14:07)
[2019-12-26] MEDS ORDERED: MIDAZOLAM 2 MG/2 ML VIAL IVP ONE (14:07)
[2019-12-26] MEDS ORDERED: fentaNYL 100 MCG/2 ML VIAL IVP ONE (14:07)
[2019-12-26] MEDS ORDERED: PROPOFOL 200 MG/20 ML VIAL IVP ONE (14:07)
[2019-12-26] MEDS ORDERED: ceFAZolin 2 GM in SODIUM CHLORIDE 0.9% 100ML 100 ML IV ONE (14:10)
[2019-12-26] MEDS ORDERED: MORPHINE 2 MG/ML CARPUJECT IVP PRN (15:13)
[2019-12-26] MEDS ORDERED: HYDROmorphone 0.5 MG/0.5 ML SYRINGE IVP PRN ×2 (15:13→16:38)
[2019-12-26] MEDS ORDERED: ONDANSETRON 4 MG/2 ML VIAL IVP PRN ×2 (15:13→16:38)
[2019-12-26] MEDS ORDERED: NALOXONE 0.4 MG/ML VIAL IVP PRN (15:13)
[2019-12-26] MEDS ORDERED: METOCLOPRAMIDE 10 MG/2 ML VIAL IVP PRN (15:13)
[2019-12-26] MEDS ORDERED: ePHEDrine 50 MG/ML VIAL IVP PRN (15:13)
[2019-12-26] MEDS ORDERED: ATROPINE ABBOJECT 1 MG/10 ML SYRINGE IVP PRN (15:13)
[2019-12-26] MEDS ORDERED: fentaNYL 100 MCG/2 ML VIAL IVP PRN (15:13)
[2019-12-26] MEDS ORDERED: ROPIVACAINE 0.2% PF 20 ML AMPULE SUBQ ONE (15:56)
[2019-12-26] MEDS ORDERED: KETOROLAC 15 MG/ML VIAL IVP ONE (15:56)
[2019-12-26] MEDS ORDERED: EPINEPHrine 1 MG/ML AMP SUBQ ONE (15:58)
[2019-12-26] MEDS ORDERED: LACTATED RINGERS 1,000 ML IV SCH ×2 (16:00→17:00)
[2019-12-26] MEDS ORDERED: SODIUM CHLORIDE FLUSH 0.9% 10 ML SYRINGE IVP PRN ×2 (16:38→16:56)
[2019-12-26] MEDS ORDERED: BISACODYL 10 MG SUPP PR PRN (16:38)
[2019-12-26] MEDS ORDERED: oxyCODONE 5 MG TABLET PO PRN ×2 (16:38)
[2019-12-26] MEDS ORDERED: LACTATED RINGERS 1,000 ML IV ONE (16:39)
--- NOTE | 2019-12-26 16:50 | XRAY Report ---
PROCEDURE: OR C-Arm Procedure INDICATIONS: hip fx TECHNIQUE: Intraoperative fluoroscopic images of the left hip COMPARISON: 12/25/2019 FINDINGS: Limited intraoperative fluoroscopic images demonstrate interval postsurgical changes of left total hi p arthroplasty. Alignment appears anatomic. No gross hardware palpitations. IMPRESSION: Fluoroscopic support for left total hip arthroplasty. Please see operative report for further details . Reviewed by: Abdullahi Lamar MD on 12/26/2019 4:48 PM PST Approved by: Abdullahi Lamar MD on 12/26/2019 4:48 PM PST Station ID: [id number]
[2019-12-26] MEDS ORDERED: SODIUM CHLORIDE 0.9% 1,000 ML IV SCH (17:00)
[2019-12-26] MEDS ORDERED: SODIUM CHLORIDE FLUSH 0.9% 10 ML SYRINGE IVP SCH (17:00)
--- NOTE | 2019-12-26 17:00 | OPERATIVE REPORT ---
Operative Report - General Admit Date: 12/25/19 Procedure Date: 12/26/19 Planned Procedure: Left total hip arthroplasty Pre-Op Diagnosis: Displaced left subcapital hip fracture Procedure Performed: Left total hip arthroplasty Post Op Diagnosis: Same - Procedure Note Primary Surgeon: Ivan Secondary Surgeon: Leonila Anesthesia Technique: General ET tube Estimated Blood Loss (mL): 300 Complications: Undisplaced fracture of the calcar, treated intraoperatively with cerclage cables - Other Other Information/Narrative: Implants: [employer] R3 52 mm acetabular cup with a 0 mm highly cross-linked polyliner, anthology size 8 extended offset femoral stem, 36+0 femoral head Procedure: Anterior left total hip arthroplasty for femoral neck fracture Preamble: This relatively healthy active 84-year-old sustained a fall landing onto her left side. She sustained a displaced femoral neck fracture. After discussion of the pros and cons of hemiarthroplasty versus total hip, both the patient and her elected to proceed with left total hip arthroplasty. Patient was seen in preoperative holding area. Surgical consent was signed. Site was confirmed and marked. All questions were answered. Operative note: Patient was taken to the operating room and a general anesthetic was administered. Placed in supine position with all bony prominences well-padded. Hip was then prepped and draped in usual sterile fashion. Timeout was completed confirming patient, procedure and side. 4 inch incision was then made extending in oblique fashion from just lateral to the ASIS down the anterolateral thigh. Anterior border of the tensor fascia jay was identified and the overlying fascia was divided with cautery. Finger dissection then used to elevate muscle off the intermuscular septum and retractors were then placed over the inferior and superior aspects of the femoral neck. Capsulotomy then performed and sutures placed into the capsule to aid in retraction. Retractors then placed within the capsule and the femoral neck fracture was visualized. Femoral neck cut was completed, napkin ring was removed followed by the femoral head without difficulty. Acetabular retractors were then placed and the acetabulum sequentially reamed up to a final 51 mm reamer. Wound was thoroughly irrigated with normal saline. Under fluoroscopic guidance the 52 mm acetabular component was then fully seated in 45 degrees of lateral opening and 20 degrees of anteversion. A single screw was then inserted to augment fixation. Standard 0 degree liner was then inserted and fully seated with a mallet. I then turned my attention to the femoral side. Electrocautery was used to circumferentially release tissues at the proximal femur. The leg was then dropped and a deducted to deliver the femur into the wound. Proximal femur was then sequentially broached up to a size 6. Trial reduction was performed with a standard offset neck and 36+0 head. After each trial reduction, Betadine solution was allowed to sit in the wound.Fluoroscopy was then used to evaluate leg lengths and the leg was somewhat short. Hip was then dislocated and trial implants were removed. I then broached up to a size 8 and trialed once again with extended offset neck and a 36+0 head. Fluoroscopy was used and leg lengths were confirmed to be equal. As the hip was being a dislocated it was noted that there was nondisplaced fracture involving the medial calcar. 6 size broach was then placed into the canal and 2 cerclage cables were passed around the proximal femur. Cables were tightened crimped and cut. The definitive #8 extended offset femoral stem was then inserted. Definitive head was seated on the Coello taper and the hip was again reduced. Again fluoroscopy was used to confirm leg length. Wound was again thoroughly irrigated with normal saline on pulsatile lavage. Capsule was closed with #1 FiberWire. Peritubular tissue was infiltrated with a cocktail of ropivacaine, ketorolac and epinephrine. space closed with 0 Vicryl. The wound was then closed in layers with 2 OV lock, 3 OV lock and Dermabond for skin. Steri-Strips applied followed by sterile dressings.As dressings were being applied, the patient experienced an appoximatelt 30 second long episode of ventricular tachycardia. She was transferred to regular hospital bed and taken to the recovery room. Hospitalist was notified and saw the patient in recovery. Postoperative plan: Transfer to intensive care unit for monitoring.Check x-ray. Intravenous antibiotics for prophylaxis against infection. Aspirin 81 mg twice daily for 20 days for prophylaxis against deep vein thrombosis. Dressing change postop day 5 then as needed. Anterior hip dislocation precautions. Physical and Occupational Therapy consults. Probable discharge to half-way facility in 2 to 3 days days time.The patient will require a front wheeled walker for safe ambulation and to perform activities daily living.Follow-up in clinic in 10 to 14 days for wound check. Follow-up in 6 weeks with radiographs of the hip.
[2019-12-26 17:09] LABS: CALCIUM 8.2 mg/dL (8.5-10.3); CREATININE 1.1 mg/dL (0.4-1.0); MAGNESIUM 1.7 mg/dL (1.7-2.8)
--- NOTE | 2019-12-26 17:12 | XRAY Report ---
PROCEDURE: Chest 1 View X-Ray INDICATIONS: Hypotension status post hip replacement TECHNIQUE: One view of the chest was acquired. COMPARISON: 12/25/2019 FINDINGS: Surgical changes and devices: None. Lungs and pleura: Increased interstitial markings with cephalization of pulmonary vessels, findings w hich are new when compared with the prior study. Mediastinum: Mediastinal contours appear normal. Heart size is normal. Bones and chest wall: No suspicious bony lesions. Overlying soft tissues appear unremarkable. IMPRESSION: New increased interstitial markings and cephalization of pulmonary vessels, findings which suggest pu lmonary edema, potentially due to volume overload or cardiogenic in nature. Reviewed by: Jose R August MD on 12/26/2019 5:11 PM PST Approved by: Jose R August MD on 12/26/2019 5:11 PM PST Station ID: [id number]
--- NOTE | 2019-12-26 17:13 | XRAY Report ---
PROCEDURE: Pelvis 1 View INDICATIONS: Postoperative evaluation status post left total hip arthroplasty. TECHNIQUE: 1 view(s) of the pelvis acquired. COMPARISON: None. FINDINGS: Left total hip arthroplasty with no acute comp getting hardware feature. No yocha dehe bone fracture. Laurel ssly normal alignment of the hardware. IMPRESSION: Expected appearance of the left hip status post total arthroplasty. Reviewed by: Jose R August MD on 12/26/2019 5:12 PM PST Approved by: Jose R August MD on 12/26/2019 5:12 PM PST Station ID: [id number]
--- NOTE | 2019-12-26 17:20 | PROVIDER PROGRESS NOTE ---
Hospitalist Cross-cover Note - Cross-Cover Note Cross-Cover Note: Dr. Tre Love asked me to see the patient in PACU who he had just completed orthopedic hip surgery on, successfully. She was intubated for her anesthesia. She was extubated successfully. As she was about to leave the OR, the Anesthesiologist saw on telemetry about 30 sec of sustained narrow-complex tachycardia at rate 170. No rhythm strip was available. No BP was available. I saw the patient as she was being rolled into PACU on the [facility]. She was still somolent, respiratory rate 12, and she had witnessed snoring with possible apnea, O2 sat was 94% on supplemental O2 by Ventimask. Blood pressure was 70/50 and recycled to be 77 systolic. Heart rate was 102 in sinus tachycardia. The patient then had sudden SVT at a rate of 200 that slowed on its own to rate of 170 and suddenly broke and she went into sinus rhythm. The PSVT lasted >15 sec. This was caught on the telemetry strip. A chin thrust was performed by the PACU nurses, she had oral suctioning performed of significant amount of clear secretions. EKG, ABG and labs were dra regalado. In the ICU: BP 100 HR 100, she is awakening, has loud systolic murmur ABG: pH 7.29, pCO2 37, pO2 110, bicarb 18 EKG (which I interpreted myself): Sinus tachycardia rate of 111, she has Q waves in leads II, III, AVF and has lateral ST depressions in leads I, aVL, & V4 through V6. Since EKG from yesterday, the ST depressions are new, and there is no longer early R/S transition in V2. Just hours preop, the patient had a STAT echo done today because of a very loud heart murmur, which she new nothing about. Echo findings were of asymmetric septal hypertrophy but no resting outflow tract obstruction, normal LVEF (no inferior scar), a flattened septum from RV pressure overload, normal RV size and systolic function. The valves showed mild aortic stenosis, mild mitral stenosis, moderate to severe mitral regurg, moderate to severe tricuspid regurg, and severe pulmonary hypertension with PA pressure 65 mmHg. CXR: early CHF with cephalization seen Imp: PSVT Hypotension, in immediate post-op period. Metabolic acidosis. 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 , MS, MR, TR. Severe pulmonary HTN Successful hip surgery Mechanical fall at home causing hip fracture. Plan: Admit to ICU, on telemetry, on Hospitalist service, Ortho is consulting Another iv access requested. Continue Sykes. Monitor I's and O's. Obtain serial troponins, check BMP and Mg, check TSH Administer 3 amps bicarb in 1L NS, recheck pH by VBG Reverse her sedation (by Anesthesia), change diet to NPO for now. If SVT recurs, use Digoxin if BP low, or a Cardizem bolus or Cardizem drip if BP can tolerate Avoid volume depletion, (like with her HCTZ and Triampterene use), which will make her IHSS develop obstruction and will cause BP drop. Avoid afterload reducers (like with her Lisinopril use), which will promote LV contractility, and that will also make her IHSS develop obstruction and will cause BP drop. Her BP meds need to be with negative inotropic agents (like B-blockers or Cardizem or Verapimil). Chest CTA to eval for PE is planned. She will need evaluation and management soon of sleep apnea. Could use CPAP/BIPAP while in ICU here. She will need outpatient eval for CAD She will need a Camera Systems Engineer to follow her for her various cardiac problems. CRITICAL CARE TIME SPENT: 60 min
[2019-12-26 17:33] LABS: ABG PCO2 38 mmHg (34-45); ABG PO2 111 mmHg (80-100)
[2019-12-26 17:34] LABS: ABG BASE EXCESS -7.8 mmol/L (-2.0-3.0); ABG OXYGEN SATURATION 98 % (94-98); ABG TCO2 19.2 MMOL/L (21.0-29.0); ALLEN TEST POSITIVE
[2019-12-26] MEDS: ACETAMINOPHEN 325 MG TABLET PO SCH ×2 (17:44→22:54)
--- NOTE | 2019-12-26 17:46 | ANESTHESIA POST OP EVALUATION ---
Anesthesia Post Eval - Post Anesthesia Eval Vitals: Last Vital Signs Temp 36.6 C 12/26/19 17:05 Pulse 108 H 12/26/19 17:25 Resp 18 12/26/19 17:25 BP 100/60 12/26/19 17:25 Pulse Ox 95 12/26/19 17:25 CV Function Including HR & BP: positive: Stable (HR low 100's, sinus) Pain Control: positive: Satisfactory Nausea & Vomiting: positive: Negative Mental Status: positive: Baseline Respiratory Status: Airway Patent (obstructs with sleep) Hydration Status: Satisfactory (hypotensive in PACU, now 100s SBP, fluid bolus given) Anesthesia Complications: positive: None (none noted)
[2019-12-26] MEDS: SODIUM BICARBONATE 150 MEQ in DEXTROSE 5% 1,000 ML IV SCH (18:13)
[2019-12-26] MEDS: ASPIRIN EC 81 MG TABLET PO SCH (20:27)
[2019-12-26] MEDS: ceFAZolin 2 GM in SODIUM CHLORIDE 0.9% 100ML 100 ML IV SCH (20:27)
[2019-12-26] MEDS: KETOROLAC 15 MG/ML VIAL IVP PRN (22:08)
[2019-12-27] MEDS ORDERED: PHENOL THROAT SPRAY 177 ML MM PRN (00:53)
[2019-12-27 00:54] LABS: VBG BASE EXCESS -2.6 mmol/L (-2 - +2); VBG PH 7.463 (7.31-7.41); VBG PO2 159.7 mmHg (25-47); VBG TOTAL CO2 21.2 mmol/L (24-29)
[2019-12-27] MEDS: SODIUM CHLORIDE FLUSH 0.9% 10 ML SYRINGE IVP SCH ×6 (01:03→20:03)
[2019-12-27] MEDS ORDERED: SODIUM CHLORIDE 0.9% 500 ML IV ONE ×2 (02:13→06:30)
[2019-12-27] MEDS: BENZOCAINE/MENTHOL LOZENGE MM PRN (02:50)
[2019-12-27] MEDS: ceFAZolin 2 GM in SODIUM CHLORIDE 0.9% 100ML 100 ML IV SCH (04:22)
[2019-12-27] MEDS: ACETAMINOPHEN 325 MG TABLET PO SCH ×4 (04:23→22:23)
[2019-12-27 05:11] LABS: CREATININE 1.1 mg/dL (0.4-1.0); MAGNESIUM 1.7 mg/dL (1.7-2.8); PHOSPHORUS 3.2 mg/dL (2.5-4.6)
[2019-12-27 05:18] LABS: EOSINOPHILS % (AUTO) 0.1 %; HGB - HEMOGLOBIN 9.4 g/dL (12.0-16.0); LYMPHOCYTES # (AUTO) 0.9 10^3/uL (1.5-3.5); LYMPHOCYTES % (AUTO) 11.2 %; MEAN CORPUSCULAR HEMOGLOBIN 29.7 pg (27.0-31.0); MEAN CORPUSCULAR HGB CONC 33.8 g/dL (32.0-36.0); MEAN CORPUSCULAR VOLUME 87.7 fL (81.0-99.0); MEAN PLATELET VOLUME 10.3 fL (7.9-10.8); MONOCYTES # (AUTO) 0.7 10^3/uL (0.0-1.0); MONOCYTES % (AUTO) 8.5 %; NEUTROPHILS # (AUTO) 6.2 10^3/uL (1.5-6.6); NEUTROPHILS % (AUTO) 79.8 %; PLT - PLATELET COUNT 154 10^3/uL (130-450); RED BLOOD COUNT 3.17 10^6/uL (4.20-5.40); RED CELL DISTRIBUTION WIDTH 12.5 % (12.0-15.0); WHITE BLOOD COUNT 7.7 x10^3/uL (4.8-10.8)
[2019-12-27] MEDS: SODIUM BICARBONATE 150 MEQ in DEXTROSE 5% 1,000 ML IV SCH (05:47)
[2019-12-27] MEDS: ASPIRIN EC 81 MG TABLET PO SCH ×2 (08:55→20:38)
[2019-12-27] MEDS: PARoxetine 10 MG TABLET PO SCH (08:56)
[2019-12-27] MEDS: CALCIUM CITRATE 250 MG TABLET PO SCH (08:57)
[2019-12-27] MEDS: CHOLECALCIFEROL 400 UNIT TABLET PO SCH (08:57)
[2019-12-27 09:42] LABS: HGB - HEMOGLOBIN 9.4 g/dL (12.0-16.0)
[2019-12-27] MEDS: KETOROLAC 15 MG/ML VIAL IVP PRN ×2 (10:09→20:02)
--- NOTE | 2019-12-27 12:20 | PROVIDER PROGRESS NOTE ---
Subjective - Prog Note Date Prog Note Date: 12/27/19 - Subjective Pt reports feeling: Improved (Having spasm type pain in the thigh. Denies any numbness or tingling to the feet. Has not yet mobilized.) Objective - Vital Signs/Intake & Output Reviewed Vital Signs: Yes Vital Signs: Vital Signs x48h Temp Pulse Resp BP Pulse Ox 12/27/19 11:00 105 H 12 98/55 L 99 12/27/19 10:00 98 19 101/60 94 12/27/19 09:00 103 H 12 112/62 99 12/27/19 08:00 37.0 C 103 H 18 113/82 H 99 12/27/19 07:00 94 14 105/57 L 100 12/27/19 06:00 82 19 92/55 L 99 12/27/19 05:00 86 12 97/56 L 99 Intake & Output: Intake & Output 12/24/19 12/25/19 12/26/19 12/27/19 23:59 23:59 23:59 23:59 Intake Total 423.502 1809.580 2350.000 Output Total 600 1065 1105 Balance -727.095 6700.580 1245.000 - Objective General Appearance: positive: Alert, Mild distress Eyes Bilateral: positive: Normal inspection Cardiovascular: positive: Tachycardia, Other (Hypotensive) Extremities: positive: Other (Tender left thigh. Dressing intact.) Neurologic/Psychiatric: positive: Oriented x3, Motor nml, Sensation nml - Lab Results Fish Bones: 12/27/19 09:36 12/27/19 04:52 Other Labs: Lab Results x24hrs 12/27/19 12/27/19 12/27/19 Range/Units 09:36 08:27 04:52 WBC (4.8-10.8) x10^3/uL RBC (4.20-5.40) 10^6/uL Hgb 9.4 L (12.0-16.0) g/dL Hct 28.3 L (37.0-47.0) % MCV (81.0-99.0) fL MCH (27.0-31.0) pg MCHC (32.0-36.0) g/dL RDW (12.0-15.0) % Plt Count (130-450) 10^3/uL MPV (7.9-10.8) fL Neut # (Auto) (1.5-6.6) 10^3/uL Lymph # (Auto) (1.5-3.5) 10^3/uL [place] # (Auto) (0.0-1.0) 10^3/uL Eos # (Auto) (0.0-0.7) 10^3/uL Baso # (Auto) (0.0-0.1) 10^3/uL Absolute Nucleated RBC x10^3/uL Nucleated RBC % /100WBC Bld Gas Analysis Time Sample Site ABG pH (7.35-7.45) ABG pCO2 (34-45) mmHg ABG pO2 (80-100) mmHg ABG HCO3 (22.0-26.0) mmol/L ABG Total CO2 (21.0-29.0) MMOL/L ABG O2 Saturation (94-98) % ABG Base Excess (-2.0-3.0) mmol/L Roe Test VBG pH (7.31-7.41) VBG pCO2 (41-51) mmHg VBG pO2 (25-47) mmHg VBG HCO3 (23-28) mmol/L VBG Total CO2 (24-29) mmol/L VBG O2 Saturation (60-80) % VBG Base Excess (-2 - +2) mmol/L O2 Delivery Device O2 Liters/Min LPM Sodium (135-145) mmol/L Potassium (3.5-5.0) mmol/L Chloride (101-111) mmol/L Carbon Dioxide (21-32) mmol/L Anion Gap (6-13) BUN (6-20) mg/dL Creatinine (0.4-1.0) mg/dL Estimated GFR (MDRD) (>89) Glucose (70-100) mg/dL POC Whole Bld Glucose 111 H (70 - 100) mg/dL Calcium (8.5-10.3) mg/dL Phosphorus (2.5-4.6) mg/dL Magnesium (1.7-2.8) mg/dL Troponin I High Sens (2.3-14.8) ng/L TSH (0.34-5.60) uIU/mL Free T4 1.33 (0.58-1.64) ng/dL Nasal Screen MRSA (PCR) (NEGATIVE) 12/27/19 12/27/19 12/27/19 Range/Units 04:52 04:52 04:52 WBC 7.7 (4.8-10.8) x10^3/uL RBC 3.17 L (4.20-5.40) 10^6/uL Hgb 9.4 L (12.0-16.0) g/dL Hct 27.8 L (37.0-47.0) % MCV 87.7 (81.0-99.0) fL MCH 29.7 (27.0-31.0) pg MCHC 33.8 (32.0-36.0) g/dL RDW 12.5 (12.0-15.0) % Plt Count 154 (130-450) 10^3/uL MPV 10.3 (7.9-10.8) fL Neut # (Auto) 6.2 (1.5-6.6) 10^3/uL Lymph # (Auto) 0.9 L (1.5-3.5) 10^3/uL [place] # (Auto) 0.7 (0.0-1.0) 10^3/uL Eos # (Auto) 0.0 (0.0-0.7) 10^3/uL Baso # (Auto) 0.0 (0.0-0.1) 10^3/uL Absolute Nucleated RBC 0.00 x10^3/uL Nucleated RBC % 0.0 /100WBC Bld Gas Analysis Time Sample Site ABG pH (7.35-7.45) ABG pCO2 (34-45) mmHg ABG pO2 (80-100) mmHg ABG HCO3 (22.0-26.0) mmol/L ABG Total CO2 (21.0-29.0) MMOL/L ABG O2 Saturation (94-98) % ABG Base Excess (-2.0-3.0) mmol/L Roe Test VBG pH (7.31-7.41) VBG pCO2 (41-51) mmHg VBG pO2 (25-47) mmHg VBG HCO3 (23-28) mmol/L VBG Total CO2 (24-29) mmol/L VBG O2 Saturation (60-80) % VBG Base Excess (-2 - +2) mmol/L O2 Delivery Device O2 Liters/Min LPM Sodium 135 (135-145) mmol/L Potassium 4.1 (3.5-5.0) mmol/L Chloride 98 L (101-111) mmol/L Carbon Dioxide 25 (21-32) mmol/L Anion Gap 12.0 (6-13) BUN 17 (6-20) mg/dL Creatinine 1.1 H (0.4-1.0) mg/dL Estimated GFR (MDRD) 47 L (>89) Glucose 166 H (70-100) mg/dL POC Whole Bld Glucose (70 - 100) mg/dL Calcium 8.0 L (8.5-10.3) mg/dL Phosphorus 3.2 (2.5-4.6) mg/dL Magnesium 1.7 (1.7-2.8) mg/dL Troponin I High Sens 33.0 H* (2.3-14.8) ng/L TSH (0.34-5.60) uIU/mL Free T4 (0.58-1.64) ng/dL Nasal Screen MRSA (PCR) (NEGATIVE) 12/27/19 12/26/19 12/26/19 Range/Units 00:44 20:44 19:12 WBC (4.8-10.8) x10^3/uL RBC (4.20-5.40) 10^6/uL Hgb (12.0-16.0) g/dL Hct (37.0-47.0) % MCV (81.0-99.0) fL MCH (27.0-31.0) pg MCHC (32.0-36.0) g/dL RDW (12.0-15.0) % Plt Count (130-450) 10^3/uL MPV (7.9-10.8) fL Neut # (Auto) (1.5-6.6) 10^3/uL Lymph # (Auto) (1.5-3.5) 10^3/uL [place] # (Auto) (0.0-1.0) 10^3/uL Eos # (Auto) (0.0-0.7) 10^3/uL Baso # (Auto) (0.0-0.1) 10^3/uL Absolute Nucleated RBC x10^3/uL Nucleated RBC % /100WBC Bld Gas Analysis Time Sample Site ABG pH (7.35-7.45) ABG pCO2 (34-45) mmHg ABG pO2 (80-100) mmHg ABG HCO3 (22.0-26.0) mmol/L ABG Total CO2 (21.0-29.0) MMOL/L ABG O2 Saturation (94-98) % ABG Base Excess (-2.0-3.0) mmol/L Roe Test VBG pH 7.463 H (7.31-7.41) VBG pCO2 29.0 L (41-51) mmHg VBG pO2 159.7 H (25-47) mmHg VBG HCO3 20.3 L (23-28) mmol/L VBG Total CO2 21.2 L (24-29) mmol/L VBG O2 Saturation 98.6 H (60-80) % VBG Base Excess -2.6 L (-2 - +2) mmol/L O2 Delivery Device O2 Liters/Min LPM Sodium (135-145) mmol/L Potassium (3.5-5.0) mmol/L Chloride (101-111) mmol/L Carbon Dioxide (21-32) mmol/L Anion Gap (6-13) BUN (6-20) mg/dL Creatinine (0.4-1.0) mg/dL Estimated GFR (MDRD) (>89) Glucose (70-100) mg/dL POC Whole Bld Glucose 203 H (70 - 100) mg/dL Calcium (8.5-10.3) mg/dL Phosphorus (2.5-4.6) mg/dL Magnesium (1.7-2.8) mg/dL Troponin I High Sens 38.3 H* (2.3-14.8) ng/L TSH (0.34-5.60) uIU/mL Free T4 (0.58-1.64) ng/dL Nasal Screen MRSA (PCR) (NEGATIVE) 12/26/19 12/26/19 12/26/19 Range/Units 17:45 17:05 16:55 WBC (4.8-10.8) x10^3/uL RBC (4.20-5.40) 10^6/uL Hgb (12.0-16.0) g/dL Hct (37.0-47.0) % MCV (81.0-99.0) fL MCH (27.0-31.0) pg MCHC (32.0-36.0) g/dL RDW (12.0-15.0) % Plt Count (130-450) 10^3/uL MPV (7.9-10.8) fL Neut # (Auto) (1.5-6.6) 10^3/uL Lymph # (Auto) (1.5-3.5) 10^3/uL [place] # (Auto) (0.0-1.0) 10^3/uL Eos # (Auto) (0.0-0.7) 10^3/uL Baso # (Auto) (0.0-0.1) 10^3/uL Absolute Nucleated RBC x10^3/uL Nucleated RBC % /100WBC Bld Gas Analysis Time 1712 Sample Site RIGHT RADIAL ABG pH 7.30 L (7.35-7.45) ABG pCO2 38 (34-45) mmHg ABG pO2 111 H (80-100) mmHg ABG HCO3 18.0 L (22.0-26.0) mmol/L ABG Total CO2 19.2 L (21.0-29.0) MMOL/L ABG O2 Saturation 98 (94-98) % ABG Base Excess -7.8 L (-2.0-3.0) mmol/L Roe Test POSITIVE VBG pH (7.31-7.41) VBG pCO2 (41-51) mmHg VBG pO2 (25-47) mmHg VBG HCO3 (23-28) mmol/L VBG Total CO2 (24-29) mmol/L VBG O2 Saturation (60-80) % VBG Base Excess (-2 - +2) mmol/L O2 Delivery Device SIMPLE MASK O2 Liters/Min 7.00 LPM Sodium (135-145) mmol/L Potassium (3.5-5.0) mmol/L Chloride (101-111) mmol/L Carbon Dioxide (21-32) mmol/L Anion Gap (6-13) BUN (6-20) mg/dL Creatinine (0.4-1.0) mg/dL Estimated GFR (MDRD) (>89) Glucose (70-100) mg/dL POC Whole Bld Glucose (70 - 100) mg/dL Calcium (8.5-10.3) mg/dL Phosphorus (2.5-4.6) mg/dL Magnesium (1.7-2.8) mg/dL Troponin I High Sens (2.3-14.8) ng/L TSH 7.33 H (0.34-5.60) uIU/mL Free T4 (0.58-1.64) ng/dL Nasal Screen MRSA (PCR) NEGATIVE (NEGATIVE) 12/26/19 12/26/19 Range/Units 16:55 16:55 WBC (4.8-10.8) x10^3/uL RBC (4.20-5.40) 10^6/uL Hgb (12.0-16.0) g/dL Hct (37.0-47.0) % MCV (81.0-99.0) fL MCH (27.0-31.0) pg MCHC (32.0-36.0) g/dL RDW (12.0-15.0) % Plt Count (130-450) 10^3/uL MPV (7.9-10.8) fL Neut # (Auto) (1.5-6.6) 10^3/uL Lymph # (Auto) (1.5-3.5) 10^3/uL [place] # (Auto) (0.0-1.0) 10^3/uL Eos # (Auto) (0.0-0.7) 10^3/uL Baso # (Auto) (0.0-0.1) 10^3/uL Absolute Nucleated RBC x10^3/uL Nucleated RBC % /100WBC Bld Gas Analysis Time Sample Site ABG pH (7.35-7.45) ABG pCO2 (34-45) mmHg ABG pO2 (80-100) mmHg ABG HCO3 (22.0-26.0) mmol/L ABG Total CO2 (21.0-29.0) MMOL/L ABG O2 Saturation (94-98) % ABG Base Excess (-2.0-3.0) mmol/L Roe Test VBG pH (7.31-7.41) VBG pCO2 (41-51) mmHg VBG pO2 (25-47) mmHg VBG HCO3 (23-28) mmol/L VBG Total CO2 (24-29) mmol/L VBG O2 Saturation (60-80) % VBG Base Excess (-2 - +2) mmol/L O2 Delivery Device O2 Liters/Min LPM Sodium 132 L (135-145) mmol/L Potassium 4.6 (3.5-5.0) mmol/L Chloride 104 (101-111) mmol/L Carbon Dioxide 22 (21-32) mmol/L Anion Gap 6.0 (6-13) BUN 14 (6-20) mg/dL Creatinine 1.1 H (0.4-1.0) mg/dL Estimated GFR (MDRD) 47 L (>89) Glucose 165 H (70-100) mg/dL POC Whole Bld Glucose (70 - 100) mg/dL Calcium 8.2 L (8.5-10.3) mg/dL Phosphorus (2.5-4.6) mg/dL Magnesium 1.7 (1.7-2.8) mg/dL Troponin I High Sens 51.5 H* (2.3-14.8) ng/L TSH (0.34-5.60) uIU/mL Free T4 (0.58-1.64) ng/dL Nasal Screen MRSA (PCR) (NEGATIVE) Assessment/Plan - Problem List (1) Femoral neck fracture Impression: Stable postop day 1. Hemoglobin has dropped from over 14 down to 9.4 Today.Given the hypotension and cardiac events over the past 24 hours, I think she would benefit from a unit of packed cells.We will try to GoLytely on narcotics because of the hypotension. Start muscle relaxants for spasm.Mobilize tomorrow with physical therapy Qualifiers: Encounter type: initial encounter Fracture type: closed Laterality: left Qualified Code(s): S72.002A - Fracture of unspecified part of neck of left femur, initial encounter for closed fracture
[2019-12-27] MEDS: CYCLOBENZAPRINE 10 MG TABLET PO PRN ×2 (12:44→20:38)
--- NOTE | 2019-12-27 15:10 | PROVIDER PROGRESS NOTE ---
Assessment/Plan - Problem List (1) PSVT (paroxysmal supraventricular tachycardia) Assessment/Plan: She developed very rapid PSVT at the very end of her OR procedure yesterday, then in PACU and because of this causing hypotension, she has been in the ICU. Today the RN reports seeing continued short runs of SVT. Potential etiologies could be hyperthyroidism. This was ruled out with a high TSH indicating she has hypothyroidism. Volume depletion would give sustained tachycardia, not runs of PSVT. Structural heart disease could cause PSVT and she does have IHSS plus multiple valve lesions which are enlarging her atrial, so this could be the cause therefore. Pulmonary disease is a very common cause for atrial tachydysrhythmias and she does have severe pulmonary hypertension. (See below regarding needed work-up after discharge) Pt will remain in the ICU today due to her low blood pressure and for initiation of low-dose beta-blockers. Continue iv hydration. (2) Hypotension Assessment/Plan: During her PSVT, she was very hypotensive at 50-80 systolic. She still is in the 80s to 100s systolic despite getting 2 L fluid since her OR. Acute [place] was ruled out with no climbing and peaking troponin. Her blood pressure meds of lisinopril and triamterene HCTZ have been stopped. She is getting narcotics which could be adding to the hypotension. Remain in the ICU today. Keep Sykes in because of hypotension. No PT or OT to start today. (3) JOSR (acute kidney injury) Assessment/Plan: Today the creatinine is 1.1, yesterday was normal. I suspect this is ATN from hypoperfusion caused by the severe hypotension yesterday. Continue with gentle IV hydration. Follow BMP daily. Avoid nephrotoxins. (4) Anemia Assessment/Plan: Hemoglobin dropped from 14.6 down to 9.4 this morning, over 48 hours. She is 2 L positive and fluid balance therefore part of this is hemodilution all, part is EBL. The anemia could be adding to today's hypotension. Will follow her hemoglobin every 12 hours. Will transfuse if she drops under hgb of 8. We will also check B12, folate and iron stores and replace if low. (5) IHSS (idiopathic hypertrophic subaortic stenosis) Assessment/Plan: She had very loud murmur found on preop eval yesterday,and she had an Echo done before surgery. The echo found IHSS without a gradient during a bedside Valsalva maneuver. In the OR, with fluid shifts and from general anesthetics, and blood loss, the LV became hypercontrctile and her IHSS probably caused LV outflow tract obstruction which decreased her cardiac output and produced low blood pressure. She needs increased intravascular fluids but not too excessive, to give her pulmonary edema, since she has diastolic dysfunction, and early CHF was seen on immediate post-op CXR. Continue with IV fluids. Start low-dose beta-blockers for negative inotropy, to decrease any hypwercontractility. Remain in the ICU (6) Pulmonary HTN Assessment/Plan: On her echo done preop, her PA pressure was calculated at 65 mmHg. This is moderate to severe pulmonary hypertension. Patient is not a smoker. She does have multiple valvular lesions which could have led to pulmonary hypertension over the many years. She also had witnessed apnea when she was sedated and being wheeled out of the OR. She needs an outpatient sleep study. Will order nocturnal oximetry while she is here. In her situation, with IHSS, Spironolactone use would not be a good idea because she would get volume depleted and hypercontractile LV and increase her LV outf low tract gradient and add to hypotension. (7) Femoral neck fracture Qualifiers: Encounter type: subsequent encounter Fracture type: closed Laterality: left Assessment/Plan: Pt had successful surgery for this yesterday. Dr Tre jeffers following along, has ordered Flexeril. (8) Fall at home Assessment/Plan: This was reported to be a mechanical fall. Now that we see her hypotension, there is concerned she had orthostasis and syncope. When she will be getting out of bed (hopefully tomorrow), we will start to do orthostatic vital sign checks. (9) Elevated troponin Assessment/Plan: First troponin was 50 which subsequently dropped to 30 and 20. Trop is probably elevated because of demand ischemia, occurring during the time that she had hypotension yesterday. This patient does need work-up for CAD, as an outpatient, because of her abnormal preop EKG which shows inferior Q waves. (10) Hypothyroidism Assessment/Plan: TSH was done to evaluate for hyperthyroidism as the cause of the SVT and we found her to be hypothyroid with a TSH elevated at 7.33. Her free T4 was normal at 1.33. This indicates she is "sick euthyroid" We will start very low-dose Synthroid replacement; this will probably help her hypotension. (11) Hx of essential hypertension Assessment/Plan: Her BP meds are on hold because of hypotension currently. With her IHSS, Triamterene/HCTZ is not a good choice. Vasodilators are also not a good choice because they cause increased inotrope. She will be started slowly on beta-blockers and this will be her HTN management at discharge. (12) Metabolic acidosis Assessment/Plan: Resolved. - Current Meds Current Meds: Current Medications Generic Name Dose Route Start Last Admin Trade Name Freq PRN Reason Stop Dose Admin Acetaminophen 975 mg 12/26/19 17:00 12/27/19 11:30 Tylenol PO 12/29/19 16:59 975 mg Q6H [place] Administration Aspirin 81 mg 12/26/19 21:00 12/27/19 08:55 Ecotrin PO 81 mg BID [place] Administration Calcium Citrate 250 mg 12/27/19 09:00 12/27/19 08:57 PO 250 mg DAILY [place] Administration Cholecalciferol 800 unit 12/27/19 09:00 12/27/19 08:57 Vitamin D3 PO 800 unit DAILY [place] Administration Cyclobenzaprine HCl 10 mg 12/27/19 12:20 12/27/19 12:44 Flexeril PO 10 mg TID PRN Administration Spasms Sodium Bicarbonate 150 meq/ 1,150 mls @ 100 mls/hr 12/26/19 18:30 12/27/19 07 :04 Dextrose IV 100 mls/hr .[id number] [place] Infusion Ketorolac Tromethamine 15 mg 12/26/19 16:38 12/27/19 10:09 Toradol Inj (15mg) IVP 12/31/19 16:37 15 mg Q6HR PRN Administration PAIN Ondansetron HCl 4 mg 12/25/19 19:16 12/26/19 22:00 Zofran Inj IVP 4 mg Q6HR PRN Administration Nausea / Vomiting Paroxetine HCl 5 mg 12/26/19 09:00 12/27/19 08:56 Paxil PO 5 mg DAILY [place] Administration Sodium Chloride 10 ml 12/26/19 01:00 12/27/19 08:57 Normal Saline Flush 0.9% IVP 10 ml 0100,0900,1700 [place] Administration Sodium Chloride 10 ml 12/26/19 17:00 12/27/19 10:04 Normal Saline Flush 0.9% IVP Not Given 0100,0900,1700 [place] Sodium Chloride 10 ml 12/26/19 16:56 12/26/19 22:08 Normal Saline Flush 0.9% IVP 10 ml PRN PRN Administration NEEDED PER PROVIDER ORDERS Throat Lozenges 1 lozenge 12/27/19 00:53 12/27/19 02:50 Cepacol MM 1 lozenge Q2HR PRN Administration Throat pain - Lab Result Fish Bone Diagrams: 12/27/19 09:36 12/27/19 04:52 - Additional Planning My Orders: My Active Orders 12/26/19 16:55 RT - Obtain Arterial Specimen [RC] .ONCE 12/26/19 16:56 Daily Weight [RC] 0600 IO [RC] Q1HR Initiate ICU Electrolyte Prot. [RC] .protocol Vital Signs [RC] Q1HR Sodium Chloride Flush 0.9% [Normal Saline Flush 0.9%] 10 ml IVP PRN PRN Code Status [OTHERS] Routine 12/26/19 16:59 Blood Glucose POC [RC] 0800,1200,1700,2100 Oral Care - Nursing [RC] Routine Telemetry- [RC] Q4HR Turn and Reposition [RC] Routine Turn, Cough and Deep Breathe [RC] Routine 12/26/19 17:00 Sodium Chloride Flush 0.9% [Normal Saline Flush 0.9%] 10 ml IVP 0100,0900,1700 12/26/19 18:30 Dextrose 5% [D5w] 1,000 ml Sodium Bicarbonate 150 meq IV 100 mls/hr 12/27/19 00:53 Benzocaine/Menthol [Cepacol] 1 lozenge MM Q2HR PRN Phenol [Chloraseptic] 2 sprays MM Q2HR PRN 12/27/19 Breakfast Dysphagia Puree Diet [DIET] 12/27/19 Dinner Dysphagia Advanced Diet [DIET] 12/27/19 17:00 HEMOGLOBIN AND HEMATOCRIT [HEME] Timed 12/28/19 Breakfast DIET [Soft Mechanical Diet] [DIET] Subjective - Subjective Patient Reports: Fatigue (Lethargic from pain meds, was sleeping awoke and had slow speech) Objective Vital Signs: Vital Signs - 24 hr 12/26/19 12/26/19 12/26/19 16:35 16:40 16:45 Temperature 36.8 C 36.6 C 36.6 C Heart Rate 103 H 181 H 110 H Heart Rate [ Brachial] Respiratory 20 16 20 Rate Blood Pressure 76/53 L 77/53 L 81/67 L Blood Pressure [Left Brachial artery] O2 Saturation 97 97 96 12/26/19 12/26/19 12/26/19 16:50 17:05 17:25 Temperature 36.6 C 36.6 C Heart Rate 115 H 105 H Heart Rate [ 108 H Brachial] Respiratory 20 19 18 Rate Blood Pressure 82/56 L 93/56 L Blood Pressure 100/60 [Left Brachial artery] O2 Saturation 95 97 95 12/26/19 12/26/19 12/26/19 17:54 18:00 19:00 Temperature 36.6 C Heart Rate Heart Rate [ 97 102 H 93 Brachial] Respiratory 17 15 13 Rate Blood Pressure Blood Pressure 99/65 94/66 90/68 [Left Brachial artery] O2 Saturation 99 97 93 12/26/19 12/26/19 12/26/19 20:00 21:00 22:00 Temperature 36.7 C Heart Rate Heart Rate [ 87 92 94 Brachial] Respiratory 11 L 15 18 Rate Blood Pressure Blood Pressure 92/61 88/54 L 89/60 L [Left Brachial artery] O2 Saturation 96 93 100 12/26/19 12/27/19 12/27/19 23:00 00:00 01:00 Temperature 36.7 C 36.7 C Heart Rate Heart Rate [ 85 86 85 Brachial] Respiratory 17 12 16 Rate Blood Pressure Blood Pressure 87/57 L 82/52 L 87/59 L [Left Brachial artery] O2 Saturation 94 98 100 12/27/19 12/27/19 12/27/19 02:00 03:00 04:00 Temperature 36.7 C Heart Rate Heart Rate [ 80 86 85 Brachial] Respiratory 19 14 15 Rate Blood Pressure Blood Pressure 87/48 L 91/54 L 98/57 L [Left Brachial artery] O2 Saturation 100 100 99 12/27/19 12/27/19 12/27/19 05:00 06:00 07:00 Temperature Heart Rate Heart Rate [ 86 82 94 Brachial] Respiratory 12 19 14 Rate Blood Pressure Blood Pressure 97/56 L 92/55 L 105/57 L [Left Brachial artery] O2 Saturation 99 99 100 12/27/19 12/27/19 12/27/19 08:00 09:00 10:00 Temperature 37.0 C Heart Rate Heart Rate [ 103 H 103 H 98 Brachial] Respiratory 18 12 19 Rate Blood Pressure Blood Pressure 113/82 H 112/62 101/60 [Left Brachial artery] O2 Saturation 99 99 94 12/27/19 12/27/19 12/27/19 11:00 12:00 13:00 Temperature 36.7 C Heart Rate Heart Rate [ 105 H 101 H 103 H Brachial] Respiratory 12 16 19 Rate Blood Pressure Blood Pressure 98/55 L 103/56 L 107/60 [Left Brachial artery] O2 Saturation 99 99 100 12/27/19 14:00 Temperature Heart Rate Heart Rate [ 96 Brachial] Respiratory 17 Rate Blood Pressure Blood Pressure 96/48 L [Left Brachial artery] O2 Saturation 94 Oxygen O2 Source Room air I&O (Last 24 Hrs): Intake and Output Totals x24h 12/25/19 12/26/19 12/27/19 23:59 23:59 23:59 Intake Total 023.647 5824.580 2400.000 Output Total 600 1065 1295 Balance -810.777 1944.580 1105.000 General: Alert HEENT: EOMI, Mucous membr. moist/pink Neck: Supple, No JVD Neuro: Non Focal Cardiovascular: Regular rate, Other (3/6 syst murmur throughout precordium) Respiratory: No respiratory distress, Breath sounds nml Abdomen: Soft, Other (Obese) Extremities: No edema - Results Results: Laboratory Results WBC 7.7 x10^3/uL (4.8-10.8) 12/27/19 04:52 RBC 3.17 10^6/uL (4.20-5.40) L 12/27/19 04:52 Hgb 9.4 g/dL (12.0-16.0) L 12/27/19 09:36 Hct 28.3 % (37.0-47.0) L 12/27/19 09:36 MCV 87.7 fL (81.0-99.0) 12/27/19 04:52 MCH 29.7 pg (27.0-31.0) 12/27/19 04:52 MCHC 33.8 g/dL (32.0-36.0) 12/27/19 04:52 RDW 12.5 % (12.0-15.0) 12/27/19 04:52 Plt Count 154 10^3/uL (130-450) 12/27/19 04:52 MPV 10.3 fL (7.9-10.8) 12/27/19 04:52 Neut # (Auto) 6.2 10^3/uL (1.5-6.6) 12/27/19 04:52 Lymph # (Auto) 0.9 10^3/uL (1.5-3.5) L 12/27/19 04:52 [place] # (Auto) 0.7 10^3/uL (0.0-1.0) 12/27/19 04:52 Eos # (Auto) 0.0 10^3/uL (0.0-0.7) 12/27/19 04:52 Baso # (Auto) 0.0 10^3/uL (0.0-0.1) 12/27/19 04:52 Absolute Nucleated RBC 0.00 x10^3/uL 12/27/19 04:52 Nucleated RBC % 0.0 /100WBC 12/27/19 04:52 PT 13.0 secs (9.9-12.6) H 12/25/19 19:45 INR 1.2 (0.8-1.2) 12/25/19 19:45 Bld Gas Analysis Time 1712 12/26/19 17:05 Sample Site RIGHT RADIAL 12/26/19 17:05 ABG pH 7.30 (7.35-7.45) L 12/26/19 17:05 ABG pCO2 38 mmHg (34-45) 12/26/19 17:05 ABG pO2 111 mmHg (80-100) H 12/26/19 17:05 ABG HCO3 18.0 mmol/L (22.0-26.0) L 12/26/19 17:05 ABG Total CO2 19.2 MMOL/L (21.0-29.0) L 12/26/19 17:05 ABG O2 Saturation 98 % (94-98) 12/26/19 17:05 ABG Base Excess -7.8 mmol/L (-2.0-3.0) L 12/26/19 17:05 Roe Test POSITIVE 12/26/19 17:05 VBG pH 7.463 (7.31-7.41) H 12/27/19 00:44 VBG pCO2 29.0 mmHg (41-51) L 12/27/19 00:44 VBG pO2 159.7 mmHg (25-47) H 12/27/19 00:44 VBG HCO3 20.3 mmol/L (23-28) L 12/27/19 00:44 VBG Total CO2 21.2 mmol/L (24-29) L 12/27/19 00:44 VBG O2 Saturation 98.6 % (60-80) H 12/27/19 00:44 VBG Base Excess -2.6 mmol/L (-2 - +2) L 12/27/19 00:44 O2 Delivery Device SIMPLE MASK 12/26/19 17:05 O2 Liters/Min 7.00 LPM 12/26/19 17:05 Sodium 135 mmol/L (135-145) 12/27/19 04:52 Potassium 4.1 mmol/L (3.5-5.0) 12/27/19 04:52 Chloride 98 mmol/L (101-111) L 12/27/19 04:52 Carbon Dioxide 25 mmol/L (21-32) 12/27/19 04:52 Anion Gap 12.0 (6-13) 12/27/19 04:52 BUN 17 mg/dL (6-20) 12/27/19 04:52 Creatinine 1.1 mg/dL (0.4-1.0) H 12/27/19 04:52 Estimated GFR (MDRD) 47 (>89) L 12/27/19 04:52 Glucose 166 mg/dL (70-100) H 12/27/19 04:52 POC Whole Bld Glucose 122 mg/dL (70 - 100) H 12/27/19 12:28 Calcium 8.0 mg/dL (8.5-10.3) L 12/27/19 04:52 Phosphorus 3.2 mg/dL (2.5-4.6) 12/27/19 04:52 Magnesium 1.7 mg/dL (1.7-2.8) 12/27/19 04:52 Total Bilirubin 1.0 mg/dL (0.2-1.0) 12/25/19 17:45 Direct Bilirubin 0.2 mg/dL (0.1-0.5) 12/25/19 17:45 AST 29 IU/L (10-42) 12/25/19 17:45 ALT 29 IU/L (10-60) 12/25/19 17:45 Alkaline Phosphatase 64 IU/L (42-121) 12/25/19 17:45 Troponin I High Sens 33.0 ng/L (2.3-14.8) H* 12/27/19 04:52 Total Protein 7.8 g/dL (6.7-8.2) 12/25/19 17:45 Albumin 4.0 g/dL (3.2-5.5) 12/25/19 17:45 Globulin 3.8 g/dL (2.1-4.2) 12/25/19 17:45 TSH 7.33 uIU/mL (0.34-5.60) H 12/26/19 16:55 Free T4 1.33 ng/dL (0.58-1.64) 12/27/19 04:52 Urine Color YELLOW 12/25/19 17:52 Urine Clarity CLEAR (CLEAR) 12/25/19 17:52 Urine pH 7.5 PH (5.0-7.5) 12/25/19 17:52 Ur Specific [place] 1.020 (1.002-1.030) 12/25/19 17:52 Urine Protein NEGATIVE mg/dL (NEGATIVE) 12/25/19 17:52 Urine Glucose (UA) NEGATIVE mg/dL (NEGATIVE) 12/25/19 17:52 Urine Ketones TRACE mg/dL (NEGATIVE) 12/25/19 17:52 Urine Occult Blood SMALL (NEGATIVE) H 12/25/19 17:52 Urine Nitrite NEGATIVE (NEGATIVE) 12/25/19 17:52 Urine Bilirubin NEGATIVE (NEGATIVE) 12/25/19 17:52 Urine Urobilinogen 0.2 (NORMAL) E.U./dL (NORMAL) 12/25/19 17:52 Ur Leukocyte Esterase NEGATIVE (NEGATIVE) 12/25/19 17:52 Urine RBC 0-5 /HPF (0-5) 12/25/19 17:52 Urine WBC 0-3 /HPF (0-5) 12/25/19 17:52 Ur Squamous Epith Cells RARE Squamous (<= Few) 12/25/19 17:52 Urine Bacteria Rare /HPF (None Seen) 12/25/19 17:52 Ur Microscopic Review INDICATED 18 17:52 Urine Culture Comments NOT INDICATED 12/25/19 17:52 Nasal Adenovirus (PCR) NOT DETECTED 12/25/19 19:05 Nasal B. parapertussis DNA (PCR) NOT DETECTED 12/25/19 19:05 Nasal Coronavir 229E PCR NOT DETECTED 12/25/19 19:05 Nasal Coronavir HKU1 PCR NOT DETECTED 12/25/19 19:05 Nasal Coronavir NL63 PCR NOT DETECTED 12/25/19 19:05 Nasal Coronavir OC43 PCR NOT DETECTED 12/25/19 19:05 Nasal Enterovir/Rhinovir PCR NOT DETECTED 12/25/19 19:05 Nasal Influenza B PCR NOT DETECTED 12/25/19 19:05 Nasal Influenza A PCR NOT DETECTED 12/25/19 19:05 Nasal Parainfluen 1 PCR NOT DETECTED 12/25/19 19:05 Nasal Parainfluen 2 PCR NOT DETECTED 12/25/19 19:05 Nasal Parainfluen 3 PCR NOT DETECTED 12/25/19 19:05 Nasal Parainfluen 4 PCR NOT DETECTED 12/25/19 19:05 Nasal RSV (PCR) NOT DETECTED 12/25/19 19:05 Nasal Screen MRSA (PCR) NEGATIVE (NEGATIVE) 12/26/19 17:45 Nasal B.pertussis DNA PCR NOT DETECTED 12/25/19 19:05 Nasal C.pneumoniae (PCR) NOT DETECTED 12/25/19 19:05 Sae Human Metapneumo PCR NOT DETECTED 12/25/19 19:05 Nasal M.pneumoniae (PCR) NOT DETECTED 12/25/19 19:05 Nasal SARS-CoV-2 (PCR) NOT DETECTED 12/25/19 19:05 Blood Type B POSITIVE 12/25/19 20:12 Blood Type Recheck B POSITIVE 12/25/19 05:17 Antibody Screen NEGATIVE 12/25/19 20:12
[2019-12-27] MEDS: SODIUM CHLORIDE 0.9% 1,000 ML IV SCH (17:20)
[2019-12-27 17:49] LABS: HGB - HEMOGLOBIN 10.1 g/dL (12.0-16.0)
[2019-12-27] MEDS: METOPROLOL TARTRATE 25 MG TABLET PO SCH (20:38)
[2019-12-28] MEDS: SODIUM CHLORIDE 0.9% 1,000 ML IV SCH ×2 (03:55→10:09)
[2019-12-28] MEDS: CYCLOBENZAPRINE 10 MG TABLET PO PRN ×2 (04:22→16:19)
[2019-12-28] MEDS: ACETAMINOPHEN 325 MG TABLET PO SCH ×3 (04:22→17:36)
[2019-12-28] MEDS: SODIUM CHLORIDE FLUSH 0.9% 10 ML SYRINGE IVP SCH ×5 (04:24→16:19)
[2019-12-28 05:11] LABS: BASOPHILS % (AUTO) 0.2 %; EOSINOPHILS # (AUTO) 0.2 10^3/uL (0.0-0.7); EOSINOPHILS % (AUTO) 2.4 %; HGB - HEMOGLOBIN 9.2 g/dL (12.0-16.0); LYMPHOCYTES # (AUTO) 1.3 10^3/uL (1.5-3.5); MEAN CORPUSCULAR HEMOGLOBIN 29.2 pg (27.0-31.0); MEAN CORPUSCULAR HGB CONC 32.9 g/dL (32.0-36.0); MEAN CORPUSCULAR VOLUME 88.9 fL (81.0-99.0); MEAN PLATELET VOLUME 10.1 fL (7.9-10.8); MONOCYTES # (AUTO) 0.6 10^3/uL (0.0-1.0); MONOCYTES % (AUTO) 7.2 %; NEUTROPHILS # (AUTO) 6.1 10^3/uL (1.5-6.6); NEUTROPHILS % (AUTO) 73.7 %; PLT - PLATELET COUNT 162 10^3/uL (130-450); RED BLOOD COUNT 3.15 10^6/uL (4.20-5.40); RED CELL DISTRIBUTION WIDTH 12.8 % (12.0-15.0); WHITE BLOOD COUNT 8.3 x10^3/uL (4.8-10.8)
[2019-12-28 05:29] LABS: CALCIUM 8.2 mg/dL (8.5-10.3)
[2019-12-28 05:52] LABS: FOLATE 4.12 ng/mL (5.90 - >24.8)
[2019-12-28] MEDS: LEVOTHYROXINE 25 MCG TABLET PO SCH (06:12)
[2019-12-28 06:29] LABS: MAGNESIUM 1.9 mg/dL (1.7-2.8); PHOSPHORUS 2.6 mg/dL (2.5-4.6)
--- NOTE | 2019-12-28 09:18 | PROVIDER PROGRESS NOTE ---
Assessment/Plan - Problem List (1) PSVT (paroxysmal supraventricular tachycardia) Assessment/Plan: Heart rate overall is better, at 90-100, on metoprolol 6.25 twice daily with a blood pressure over 100 today. We will transfer her out of the ICU. She can start to be OOB and start PT and OT. Continue on telemetry. Titrate up her beta-hayley dose, keeping BP > 100. (2) Hypotension Assessment/Plan: Bp > 100. She will transfer her out of the ICU. She can start to be OOB and start PT and OT. Titrate up her beta-hayley dose, keeping BP > 100. Continue IV fluids but decrease the rate from 100 cc an hour to 60 cc an hour. (3) Altered mental status Assessment/Plan: In the ICU she was forgetful but reoriented. After discharge out of the ICU and into a new floor, she is disoriented to person place and time. She could not remember she had a fall. She could not remember that she needed hip surgery. She thinks her pain in her left groin area is from her urine. She was reoriented and states "you know, I had the early stages of dementia". Perhaps she has delayed recovery after general anesthesia. Most likely her narcotics are giving her delirium. Will stop narcotics. Continue IV fluids. Consider CT head if she has no improvement with no narcotics on board. (4) Anemia Assessment/Plan: Her hemoglobin dropped from 14 down to 9. This contributed to the hypotension. She has both folate deficiency and iron deficiency. She will be started on oral folic acid 1 mg daily and oral ferrous gluconate 324 mg daily. Follow hemoglobin and hematocrit every 12 hours. Transfuse if hemoglobin goes under 8. (5) IHSS (idiopathic hypertrophic subaortic stenosis) Assessment/Plan: She had very loud murmur found on preop eval and she had an Echo done before surgery. The Echo found IHSS without a gradient during a bedside Valsalva maneuver. In the OR, due to fluid shifts, and from general anesthetics, and blood loss, the LV became hypercontractile and her IHSS probably caused LV outflow tract obstruction which decreased her cardiac output and produced low blood pressure. She needs adequate intravascular fluids, but not too excessive to give her pulmonary edema, since she has diastolic dysfunction, and early CHF was seen on immediate post-op CXR. Continue with IV fluids, but decreased rate from 100 cc/hr to 60 cc/hr. Start beta-blockers for negative inotropy, to decrease her hypercontractility. Titrate B-hayley dose up, to a target HR of 60 at rest, but watching for hypotension. She can move out of the ICU to [facility] bed, on telemetry. (6) Pulmonary HTN Assessment/Plan: Her PA pressure is 65 mmHg, per echo. She will need outpatient work-up for causes of this. Apnea was witnessed when she was sedated. We will order overnight oximetry tonight. She will need a formal outpatient sleep study. (7) Femoral neck fracture Qualifiers: Encounter type: subsequent encounter Fracture type: closed Laterality: left Assessment/Plan: She can start PT and OT today. Sykes can be discontinued today. (8) Fall at home Assessment/Plan: This was reported to be a mechanical fall but with her hypotension and findings of IHSS, there may have been a component of orthostasis and therefore syncope. (9) Hypothyroidism Assessment/Plan: Her labs show that she is "sick euthyroid". She was started on very low-dose of Synthroid 25 mcg daily this morning. She will need follow-up with TSH in several months (10) Elevated troponin Assessment/Plan: No acute MN. LVEF is preserved. Related to hypotension, demand ischemia. (11) Hx of essential hypertension Assessment/Plan: Her BP meds at home were not the best for somebody with IHSS. We will be using beta-hayley here and after Dch. (12) Metabolic acidosis Assessment/Plan: Resolved. (13) JOSR (acute kidney injury) Assessment/Plan: Resolved with 2 days of IV hydration. Follow BMP daily - Current Meds Current Meds: Current Medications Generic Name Dose Route Start Last Admin Trade Name Freq PRN Reason Stop Dose Admin Acetaminophen 975 mg 12/26/19 17:00 12/28/19 04:22 Tylenol PO 12/29/19 16:59 975 mg Q6H [place] Administration Aspirin 81 mg 12/26/19 21:00 12/27/19 20:38 Ecotrin PO 81 mg BID [place] Administration Calcium Citrate 250 mg 12/27/19 09:00 12/27/19 08:57 PO 250 mg DAILY [place] Administration Cholecalciferol 800 unit 12/27/19 09:00 12/27/19 08:57 Vitamin D3 PO 800 unit DAILY [place] Administration Cyclobenzaprine HCl 10 mg 12/27/19 12:20 12/28/19 04:22 Flexeril PO 10 mg TID PRN Administration Spasms Ketorolac Tromethamine 15 mg 12/26/19 16:38 12/27/19 20:02 Toradol Inj (15mg) IVP 12/31/19 16:37 15 mg Q6HR PRN Administration PAIN Levothyroxine Sodium 25 mcg 12/28/19 07:00 12/28/19 06:12 Synthroid PO 25 mcg QDAC [place] Administration Metoprolol Tartrate 6.25 mg 12/27/19 21:00 12/27/19 20:38 Lopressor PO 6.25 mg BID [place] Administration Ondansetron HCl 4 mg 12/25/19 19:16 12/26/19 22:00 Zofran Inj IVP 4 mg Q6HR PRN Administration Nausea / Vomiting Sodium Chloride 10 ml 12/26/19 01:00 12/28/19 04:24 Normal Saline Flush 0.9% IVP 10 ml 0100,0900,1700 [place] Administration Sodium Chloride 10 ml 12/26/19 17:00 12/28/19 04:35 Normal Saline Flush 0.9% IVP Not Given 0100,0900,1700 [place] Sodium Chloride 10 ml 12/26/19 16:56 12/26/19 22:08 Normal Saline Flush 0.9% IVP 10 ml PRN PRN Administration NEEDED PER PROVIDER ORDERS Throat Lozenges 1 lozenge 12/27/19 00:53 12/27/19 02:50 Cepacol MM 1 lozenge Q2HR PRN Administration Throat pain - Lab Result Fish Bone Diagrams: 12/28/19 09:05 12/28/19 04:55 - Additional Planning My Orders: My Active Orders 12/27/19 21:00 Metoprolol Tartrate [Lopressor] 6.25 mg PO BID 12/28/19 Evaluate and Treat OT [OT] Routine Evaluate and Treat PT [PT] Routine 12/28/19 Breakfast DIET [Soft Mechanical Diet] [DIET] 12/28/19 07:00 Levothyroxine [Synthroid] 25 mcg PO QDAC 12/28/19 09:10 Telemetry- [RC] Q4HR Transfer [Admit \\ Transfer \\ Status] [RC] .ONCE 12/28/19 09:11 Sykes Discontinuation [RC] ONCE 12/28/19 09:12 Sodium Chloride 0.9% [Normal Saline 0.9%] 1,000 ml IV 60 mls/hr 12/28/19 12:00 Ferrous Gluconate [Fergon] 324 mg PO DAILYWM Folic Acid 1 mg PO DAILY 12/28/19 17:00 HEMOGLOBIN AND HEMATOCRIT [HEME] Timed 12/29/19 05:00 HEMOGLOBIN AND HEMATOCRIT [HEME] Q12H MAGNESIUM [CHEM] DAILYLAB PHOSPHORUS [CHEM] DAILYLAB 12/29/19 17:00 HEMOGLOBIN AND HEMATOCRIT [HEME] Q12H 12/30/19 05:00 HEMOGLOBIN AND HEMATOCRIT [HEME] Q12H 12/30/19 17:00 HEMOGLOBIN AND HEMATOCRIT [HEME] Q12H 12/31/19 05:00 HEMOGLOBIN AND HEMATOCRIT [HEME] Q12H Subjective - Subjective Patient Reports: Other (Wants to go home, is calling her to pick her up) Objective Vital Signs: Vital Signs - 24 hr 12/27/19 12/27/19 12/27/19 10:00 11:00 12:00 Temperature 36.7 C Heart Rate [ 98 105 H 101 H Brachial] Respiratory 19 12 16 Rate Blood Pressure Blood Pressure 101/60 98/55 L 103/56 L [Left Brachial artery] O2 Saturation 94 99 99 12/27/19 12/27/19 12/27/19 13:00 14:00 15:00 Temperature Heart Rate [ 103 H 96 93 Brachial] Respiratory 19 17 19 Rate Blood Pressure Blood Pressure 107/60 96/48 L 87/61 L [Left Brachial artery] O2 Saturation 100 94 96 12/27/19 12/27/19 12/27/19 16:00 17:00 18:00 Temperature 37.1 C Heart Rate [ 96 105 H 119 H Brachial] Respiratory 15 15 20 Rate Blood Pressure Blood Pressure 119/78 124/72 109/60 [Left Brachial artery] O2 Saturation 99 95 98 12/27/19 12/27/19 12/27/19 19:00 20:00 20:38 Temperature 37.9 C Heart Rate [ 112 H 108 H Brachial] Respiratory 16 13 Rate Blood Pressure 115/70 Blood Pressure 101/62 115/70 [Left Brachial artery] O2 Saturation 97 99 12/27/19 12/27/19 12/27/19 21:00 22:00 22:29 Temperature 37.1 C Heart Rate [ 106 H 104 H 96 Brachial] Respiratory 21 23 14 Rate Blood Pressure Blood Pressure 104/55 L 87/49 L 100/61 [Left Brachial artery] O2 Saturation 98 96 97 12/27/19 12/28/19 12/28/19 23:00 03:00 04:04 Temperature 36.7 C Heart Rate [ 97 99 96 Brachial] Respiratory 21 16 14 Rate Blood Pressure Blood Pressure 88/56 L 113/69 112/67 [Left Brachial artery] O2 Saturation 91 L 100 97 12/28/19 12/28/19 12/28/19 05:00 06:00 07:00 Temperature 37.1 C Heart Rate [ 106 H 107 H 109 H Brachial] Respiratory 16 18 15 Rate Blood Pressure Blood Pressure 118/67 112/66 112/69 [Left Brachial artery] O2 Saturation 93 95 96 12/28/19 08:00 Temperature 37.1 C Heart Rate [ 100 Brachial] Respiratory 22 Rate Blood Pressure Blood Pressure 112/69 [Left Brachial artery] O2 Saturation 95 Oxygen O2 Source Room air I&O (Last 24 Hrs): Intake and Output Totals x24h 12/26/19 12/27/19 12/28/19 23:59 23:59 23:59 Intake Total 2233.580 4798.334 1550.000 Output Total 1065 2510 1350 Balance 5824.291 0710.334 200.000 General: Alert, Other (Pale) HEENT: Atraumatic, EOMI Neck: Supple, No JVD Neuro: Alert, Disoriented (She is disoriented to person place and time this afternoon) Cardiovascular: Other (She is in SVT at a rate of 160 at 5 PM today) Respiratory: No respiratory distress Abdomen: Soft, Other (Obese) Extremities: No edema - Results Results: Laboratory Results WBC 8.3 x10^3/uL (4.8-10.8) 12/28/19 04:55 RBC 3.15 10^6/uL (4.20-5.40) L 12/28/19 04:55 Hgb 9.2 g/dL (12.0-16.0) L 12/28/19 04:55 Hct 28.0 % (37.0-47.0) L 12/28/19 04:55 MCV 88.9 fL (81.0-99.0) 12/28/19 04:55 MCH 29.2 pg (27.0-31.0) 12/28/19 04:55 MCHC 32.9 g/dL (32.0-36.0) 12/28/19 04:55 RDW 12.8 % (12.0-15.0) 12/28/19 04:55 Plt Count 162 10^3/uL (130-450) 12/28/19 04:55 MPV 10.1 fL (7.9-10.8) 12/28/19 04:55 Neut # (Auto) 6.1 10^3/uL (1.5-6.6) 12/28/19 04:55 Lymph # (Auto) 1.3 10^3/uL (1.5-3.5) L 12/28/19 04:55 [place] # (Auto) 0.6 10^3/uL (0.0-1.0) 12/28/19 04:55 Eos # (Auto) 0.2 10^3/uL (0.0-0.7) 12/28/19 04:55 Baso # (Auto) 0.0 10^3/uL (0.0-0.1) 12/28/19 04:55 Absolute Nucleated RBC 0.00 x10^3/uL 12/28/19 04:55 Nucleated RBC % 0.0 /100WBC 12/28/19 04:55 PT 13.0 secs (9.9-12.6) H 12/25/19 19:45 INR 1.2 (0.8-1.2) 12/25/19 19:45 Bld Gas Analysis Time 1712 12/26/19 17:05 Sample Site RIGHT RADIAL 12/26/19 17:05 ABG pH 7.30 (7.35-7.45) L 12/26/19 17:05 ABG pCO2 38 mmHg (34-45) 12/26/19 17:05 ABG pO2 111 mmHg (80-100) H 12/26/19 17:05 ABG HCO3 18.0 mmol/L (22.0-26.0) L 12/26/19 17:05 ABG Total CO2 19.2 MMOL/L (21.0-29.0) L 12/26/19 17:05 ABG O2 Saturation 98 % (94-98) 12/26/19 17:05 ABG Base Excess -7.8 mmol/L (-2.0-3.0) L 12/26/19 17:05 Roe Test POSITIVE 12/26/19 17:05 VBG pH 7.463 (7.31-7.41) H 12/27/19 00:44 VBG pCO2 29.0 mmHg (41-51) L 12/27/19 00:44 VBG pO2 159.7 mmHg (25-47) H 12/27/19 00:44 VBG HCO3 20.3 mmol/L (23-28) L 12/27/19 00:44 VBG Total CO2 21.2 mmol/L (24-29) L 12/27/19 00:44 VBG O2 Saturation 98.6 % (60-80) H 12/27/19 00:44 VBG Base Excess -2.6 mmol/L (-2 - +2) L 12/27/19 00:44 O2 Delivery Device SIMPLE MASK 12/26/19 17:05 O2 Liters/Min 7.00 LPM 12/26/19 17:05 Sodium 137 mmol/L (135-145) 12/28/19 04:55 Potassium 3.9 mmol/L (3.5-5.0) 12/28/19 04:55 Chloride 102 mmol/L (101-111) 12/28/19 04:55 Carbon Dioxide 27 mmol/L (21-32) 12/28/19 04:55 Anion Gap 8.0 (6-13) 12/28/19 04:55 BUN 17 mg/dL (6-20) 12/28/19 04:55 Creatinine 1.0 mg/dL (0.4-1.0) 12/28/19 04:55 Estimated GFR (MDRD) 53 (>89) L 12/28/19 04:55 Glucose 105 mg/dL (70-100) H 12/28/19 04:55 POC Whole Bld Glucose 92 mg/dL (70 - 100) 12/28/19 07:54 Calcium 8.2 mg/dL (8.5-10.3) L 12/28/19 04:55 Phosphorus 2.6 mg/dL (2.5-4.6) 12/28/19 04:55 Magnesium 1.9 mg/dL (1.7-2.8) 12/28/19 04:55 Iron 7 ug/dL (28-170) L 12/28/19 04:55 TIBC 209 ug/dL (250-450) L 12/28/19 04:55 % Saturation 3 % (20-50) L 12/28/19 04:55 Transferrin 149 mg/dL (192-382) L 12/28/19 04:55 Total Bilirubin 1.0 mg/dL (0.2-1.0) 12/25/19 17:45 Direct Bilirubin 0.2 mg/dL (0.1-0.5) 12/25/19 17:45 AST 29 IU/L (10-42) 12/25/19 17:45 ALT 29 IU/L (10-60) 12/25/19 17:45 Alkaline Phosphatase 64 IU/L (42-121) 12/25/19 17:45 Troponin I High Sens 33.0 ng/L (2.3-14.8) H* 12/27/19 04:52 Total Protein 7.8 g/dL (6.7-8.2) 12/25/19 17:45 Albumin 4.0 g/dL (3.2-5.5) 12/25/19 17:45 Globulin 3.8 g/dL (2.1-4.2) 12/25/19 17:45 Vitamin B12 273 pg/mL (180-914) 12/28/19 04:55 Folate 4.12 ng/mL (5.90 - >24.8) L 12/28/19 04:55 TSH 7.33 uIU/mL (0.34-5.60) H 12/26/19 16:55 Free T4 1.33 ng/dL (0.58-1.64) 12/27/19 04:52 Urine Color YELLOW 12/25/19 17:52 Urine Clarity CLEAR (CLEAR) 12/25/19 17:52 Urine pH 7.5 PH (5.0-7.5) 12/25/19 17:52 Ur Specific [place] 1.020 (1.002-1.030) 12/25/19 17:52 Urine Protein NEGATIVE mg/dL (NEGATIVE) 12/25/19 17:52 Urine Glucose (UA) NEGATIVE mg/dL (NEGATIVE) 12/25/19 17:52 Urine Ketones TRACE mg/dL (NEGATIVE) 12/25/19 17:52 Urine Occult Blood SMALL (NEGATIVE) H 12/25/19 17:52 Urine Nitrite NEGATIVE (NEGATIVE) 12/25/19 17:52 Urine Bilirubin NEGATIVE (NEGATIVE) 12/25/19 17:52 Urine Urobilinogen 0.2 (NORMAL) E.U./dL (NORMAL) 12/25/19 17:52 Ur Leukocyte Esterase NEGATIVE (NEGATIVE) 12/25/19 17:52 Urine RBC 0-5 /HPF (0-5) 12/25/19 17:52 Urine WBC 0-3 /HPF (0-5) 12/25/19 17:52 Ur Squamous Epith Cells RARE Squamous (<= Few) 12/25/19 17:52 Urine Bacteria Rare /HPF (None Seen) 12/25/19 17:52 Ur Microscopic Review INDICATED 12/25/19 17:52 Urine Culture Comments NOT INDICATED 12/25/19 17:52 Nasal Adenovirus (PCR) NOT DETECTED 12/25/19 19:05 Nasal B. parapertussis DNA (PCR) NOT DETECTED 12/25/19 19:05 Nasal Coronavir 229E PCR NOT DETECTED 12/25/19 19:05 Nasal Coronavir HKU1 PCR NOT DETECTED 12/25/19 19:05 Nasal Coronavir NL63 PCR NOT DETECTED 12/25/19 19:05 Nasal Coronavir OC43 PCR NOT DETECTED 12/25/19 19:05 Nasal Enterovir/Rhinovir PCR NOT DETECTED 12/25/19 19:05 Nasal Influenza B PCR NOT DETECTED 12/25/19 19:05 Nasal Influenza A PCR NOT DETECTED 12/25/19 19:05 Nasal Parainfluen 1 PCR NOT DETECTED 12/25/19 19:05 Nasal Parainfluen 2 PCR NOT DETECTED 12/25/19 19:05 Nasal Parainfluen 3 PCR NOT DETECTED 12/25/19 19:05 Nasal Parainfluen 4 PCR NOT DETECTED 12/25/19 19:05 Nasal RSV (PCR) NOT DETECTED 12/25/19 19:05 Nasal Screen MRSA (PCR) NEGATIVE (NEGATIVE) 12/26/19 17:45 Nasal B.pertussis DNA PCR NOT DETECTED 12/25/19 19:05 Nasal C.pneumoniae (PCR) NOT DETECTED 12/25/19 19:05 Sae Human Metapneumo PCR NOT DETECTED 12/25/19 19:05 Nasal M.pneumoniae (PCR) NOT DETECTED 12/25/19 19:05 Nasal SARS-CoV-2 (PCR) NOT DETECTED 12/25/19 19:05 Blood Type B POSITIVE 12/25/19 20:12 Blood Type Recheck B POSITIVE 12/25/19 05:17 Antibody Screen NEGATIVE 12/25/19 20:12
[2019-12-28 09:30] LABS: HGB - HEMOGLOBIN 8.9 g/dL (12.0-16.0)
[2019-12-28] MEDS: CHOLECALCIFEROL 400 UNIT TABLET PO SCH (10:08)
[2019-12-28] MEDS: ASPIRIN EC 81 MG TABLET PO SCH ×2 (10:08→20:09)
[2019-12-28] MEDS: METOPROLOL TARTRATE 25 MG TABLET PO SCH ×2 (10:08→20:09)
[2019-12-28] MEDS: CALCIUM CITRATE 250 MG TABLET PO SCH (10:08)
[2019-12-28] MEDS: KETOROLAC 15 MG/ML VIAL IVP PRN ×2 (10:09→16:19)
--- NOTE | 2019-12-28 11:32 | PROVIDER PROGRESS NOTE ---
Subjective - Prog Note Date Prog Note Date: 12/28/19 - Subjective Pt reports feeling: Improved (Patient is feeling much better today. Pain well controlled. No numbness or tingling to the foot. Has not yet mobilized out of bed) Objective - Vital Signs/Intake & Output Reviewed Vital Signs: Yes Vital Signs: Vital Signs x48h Temp Pulse Resp BP BP Pulse Ox 12/28/19 10:08 111/68 12/28/19 09:00 107 H 20 115/62 96 12/28/19 08:00 37.1 C 100 22 112/69 95 12/28/19 07:00 109 H 15 112/69 96 12/28/19 06:00 37.1 C 107 H 18 112/66 95 12/28/19 05:00 106 H 16 118/67 93 12/28/19 04:04 36.7 C 96 14 112/67 97 Intake & Output: Intake & Output 12/25/19 12/26/19 12/27/19 12/28/19 23:59 23:59 23:59 23:59 Intake Total 763.093 3351.580 4798.334 1670.000 Output Total 600 1065 2510 1425 Balance -868.030 0542.580 2288.334 245.000 - Objective General Appearance: positive: No acute distress Eyes Bilateral: positive: Normal inspection Cardiovascular: positive: Other (Warm well perfused feet) Skin: positive: Other (Dressing intact) Extremities: positive: Other (Minimal tenderness) Neurologic/Psychiatric: positive: Oriented x3, Motor nml, Sensation nml - Lab Results Fish Bones: 12/28/19 09:05 12/28/19 04:55 Other Labs: Lab Results x24hrs 12/28/19 12/28/19 12/28/19 Range/Units 09:05 07:54 04:55 WBC (4.8-10.8) x10^3/uL RBC (4.20-5.40) 10^6/uL Hgb 8.9 L (12.0-16.0) g/dL Hct 26.2 L (37.0-47.0) % MCV (81.0-99.0) fL MCH (27.0-31.0) pg MCHC (32.0-36.0) g/dL RDW (12.0-15.0) % Plt Count (130-450) 10^3/uL MPV (7.9-10.8) fL Neut # (Auto) (1.5-6.6) 10^3/uL Lymph # (Auto) (1.5-3.5) 10^3/uL [place] # (Auto) (0.0-1.0) 10^3/uL Eos # (Auto) (0.0-0.7) 10^3/uL Baso # (Auto) (0.0-0.1) 10^3/uL Absolute Nucleated RBC x10^3/uL Nucleated RBC % /100WBC Sodium (135-145) mmol/L Potassium (3.5-5.0) mmol/L Chloride (101-111) mmol/L Carbon Dioxide (21-32) mmol/L Anion Gap (6-13) BUN (6-20) mg/dL Creatinine (0.4-1.0) mg/dL Estimated GFR (MDRD) (>89) Glucose (70-100) mg/dL POC Whole Bld Glucose 92 (70 - 100) mg/dL Calcium (8.5-10.3) mg/dL Phosphorus 2.6 (2.5-4.6) mg/dL Magnesium 1.9 (1.7-2.8) mg/dL Iron (28-170) ug/dL TIBC (250-450) ug/dL % Saturation (20-50) % Transferrin (192-382) mg/dL Vitamin B12 (180-914) pg/mL Folate (5.90 - >24.8) ng/mL 12/28/19 12/28/19 12/28/19 Range/Units 04:55 04:55 04:55 WBC 8.3 (4.8-10.8) x10^3/uL RBC 3.15 L (4.20-5.40) 10^6/uL Hgb 9.2 L (12.0-16.0) g/dL Hct 28.0 L (37.0-47.0) % MCV 88.9 (81.0-99.0) fL MCH 29.2 (27.0-31.0) pg MCHC 32.9 (32.0-36.0) g/dL RDW 12.8 (12.0-15.0) % Plt Count 162 (130-450) 10^3/uL MPV 10.1 (7.9-10.8) fL Neut # (Auto) 6.1 (1.5-6.6) 10^3/uL Lymph # (Auto) 1.3 L (1.5-3.5) 10^3/uL [place] # (Auto) 0.6 (0.0-1.0) 10^3/uL Eos # (Auto) 0.2 (0.0-0.7) 10^3/uL Baso # (Auto) 0.0 (0.0-0.1) 10^3/uL Absolute Nucleated RBC 0.00 x10^3/uL Nucleated RBC % 0.0 /100WBC Sodium 137 (135-145) mmol/L Potassium 3.9 (3.5-5.0) mmol/L Chloride 102 (101-111) mmol/L Carbon Dioxide 27 (21-32) mmol/L Anion Gap 8.0 (6-13) BUN 17 (6-20) mg/dL Creatinine 1.0 (0.4-1.0) mg/dL Estimated GFR (MDRD) 53 L (>89) Glucose 105 H (70-100) mg/dL POC Whole Bld Glucose (70 - 100) mg/dL Calcium 8.2 L (8.5-10.3) mg/dL Phosphorus (2.5-4.6) mg/dL Magnesium (1.7-2.8) mg/dL Iron 7 L (28-170) ug/dL TIBC 209 L (250-450) ug/dL % Saturation 3 L (20-50) % Transferrin 149 L (192-382) mg/dL Vitamin B12 273 (180-914) pg/mL Folate 4.12 L (5.90 - >24.8) ng/mL 12/27/19 12/27/19 12/27/19 Range/Units 20:25 17:40 16:53 WBC (4.8-10.8) x10^3/uL RBC (4.20-5.40) 10^6/uL Hgb 10.1 L (12.0-16.0) g/dL Hct 29.8 L (37.0-47.0) % MCV (81.0-99.0) fL MCH (27.0-31.0) pg MCHC (32.0-36.0) g/dL RDW (12.0-15.0) % Plt Count (130-450) 10^3/uL MPV (7.9-10.8) fL Neut # (Auto) (1.5-6.6) 10^3/uL Lymph # (Auto) (1.5-3.5) 10^3/uL [place] # (Auto) (0.0-1.0) 10^3/uL Eos # (Auto) (0.0-0.7) 10^3/uL Baso # (Auto) (0.0-0.1) 10^3/uL Absolute Nucleated RBC x10^3/uL Nucleated RBC % /100WBC Sodium (135-145) mmol/L Potassium (3.5-5.0) mmol/L Chloride (101-111) mmol/L Carbon Dioxide (21-32) mmol/L Anion Gap (6-13) BUN (6-20) mg/dL Creatinine (0.4-1.0) mg/dL Estimated GFR (MDRD) (>89) Glucose (70-100) mg/dL POC Whole Bld Glucose 114 H 86 (70 - 100) mg/dL Calcium (8.5-10.3) mg/dL Phosphorus (2.5-4.6) mg/dL Magnesium (1.7-2.8) mg/dL Iron (28-170) ug/dL TIBC (250-450) ug/dL % Saturation (20-50) % Transferrin (192-382) mg/dL Vitamin B12 (180-914) pg/mL Folate (5.90 - >24.8) ng/mL 12/27/19 Range/Units 12:28 WBC (4.8-10.8) x10^3/uL RBC (4.20-5.40) 10^6/uL Hgb (12.0-16.0) g/dL Hct (37.0-47.0) % MCV (81.0-99.0) fL MCH (27.0-31.0) pg MCHC (32.0-36.0) g/dL RDW (12.0-15.0) % Plt Count (130-450) 10^3/uL MPV (7.9-10.8) fL Neut # (Auto) (1.5-6.6) 10^3/uL Lymph # (Auto) (1.5-3.5) 10^3/uL [place] # (Auto) (0.0-1.0) 10^3/uL Eos # (Auto) (0.0-0.7) 10^3/uL Baso # (Auto) (0.0-0.1) 10^3/uL Absolute Nucleated RBC x10^3/uL Nucleated RBC % /100WBC Sodium (135-145) mmol/L Potassium (3.5-5.0) mmol/L Chloride (101-111) mmol/L Carbon Dioxide (21-32) mmol/L Anion Gap (6-13) BUN (6-20) mg/dL Creatinine (0.4-1.0) mg/dL Estimated GFR (MDRD) (>89) Glucose (70-100) mg/dL POC Whole Bld Glucose 122 H (70 - 100) mg/dL Calcium (8.5-10.3) mg/dL Phosphorus (2.5-4.6) mg/dL Magnesium (1.7-2.8) mg/dL Iron (28-170) ug/dL TIBC (250-450) ug/dL % Saturation (20-50) % Transferrin (192-382) mg/dL Vitamin B12 (180-914) pg/mL Folate (5.90 - >24.8) ng/mL Assessment/Plan - Problem List (1) Femoral neck fracture Impression: Stable and doing much better postop day 2 following total hip. PT to mobilize. Probable discharge to SNF on Monday Qualifiers: Encounter type: subsequent encounter Fracture type: closed Laterality: left
[2019-12-28] MEDS: FERROUS GLUCONATE 324 MG TABLET PO SCH (11:54)
[2019-12-28] MEDS: FOLIC ACID 1 MG TABLET PO SCH (11:54)
[2019-12-28] MEDS ORDERED: diltiaZEM INJ 5 MG/ML VIAL IVP ONE (17:21)
[2019-12-28 17:52] LABS: HGB - HEMOGLOBIN 9.9 g/dL (12.0-16.0)
[2019-12-28] MEDS ORDERED: diphenhydrAMINE INJ 50 MG/ML VIAL IVP STA (22:11)
[2019-12-29] MEDS: ACETAMINOPHEN 325 MG TABLET PO SCH ×3 (00:01→12:00)
[2019-12-29] MEDS: SODIUM CHLORIDE FLUSH 0.9% 10 ML SYRINGE IVP SCH ×5 (00:24→17:48)
[2019-12-29] MEDS: LEVOTHYROXINE 25 MCG TABLET PO SCH (05:44)
[2019-12-29] MEDS: SODIUM CHLORIDE 0.9% 1,000 ML IV SCH ×2 (05:45→22:10)
[2019-12-29 05:48] LABS: BASOPHILS % (AUTO) 0.2 %; EOSINOPHILS # (AUTO) 0.2 10^3/uL (0.0-0.7); EOSINOPHILS % (AUTO) 2.4 %; HGB - HEMOGLOBIN 8.9 g/dL (12.0-16.0); LYMPHOCYTES # (AUTO) 1.6 10^3/uL (1.5-3.5); MEAN CORPUSCULAR HEMOGLOBIN 28.8 pg (27.0-31.0); MEAN CORPUSCULAR HGB CONC 32.4 g/dL (32.0-36.0); MEAN PLATELET VOLUME 10.3 fL (7.9-10.8); MONOCYTES # (AUTO) 0.5 10^3/uL (0.0-1.0); MONOCYTES % (AUTO) 6.2 %; NEUTROPHILS # (AUTO) 6.1 10^3/uL (1.5-6.6); NEUTROPHILS % (AUTO) 71.7 %; PLT - PLATELET COUNT 193 10^3/uL (130-450); RED BLOOD COUNT 3.09 10^6/uL (4.20-5.40); RED CELL DISTRIBUTION WIDTH 12.9 % (12.0-15.0); WHITE BLOOD COUNT 8.5 x10^3/uL (4.8-10.8)
[2019-12-29 06:00] LABS: CALCIUM 8.4 mg/dL (8.5-10.3); CREATININE 0.8 mg/dL (0.4-1.0); MAGNESIUM 1.9 mg/dL (1.7-2.8); PHOSPHORUS 2.9 mg/dL (2.5-4.6)
[2019-12-29] MEDS: CALCIUM CITRATE 250 MG TABLET PO SCH (08:31)
[2019-12-29] MEDS: METOPROLOL TARTRATE 25 MG TABLET PO SCH (08:31)
[2019-12-29] MEDS: CHOLECALCIFEROL 400 UNIT TABLET PO SCH (08:31)
[2019-12-29] MEDS: FERROUS GLUCONATE 324 MG TABLET PO SCH (08:31)
[2019-12-29] MEDS: ASPIRIN EC 81 MG TABLET PO SCH ×2 (08:31→20:46)
[2019-12-29] MEDS: FOLIC ACID 1 MG TABLET PO SCH (08:31)
[2019-12-29 09:20] LABS: HGB - HEMOGLOBIN 9.2 g/dL (12.0-16.0)
[2019-12-29] MEDS ORDERED: METOPROLOL TARTRATE 25 MG TABLET PO SCH (12:00)
[2019-12-29] MEDS: CITALOPRAM 10 MG TABLET PO SCH (12:01)
--- NOTE | 2019-12-29 17:15 | PROVIDER PROGRESS NOTE ---
Assessment/Plan - Problem List (1) Altered mental status Assessment/Plan: She was very confused last night (using her call button as a phone), probably with the combination of having received narcotics for pain control. Just like yesterday, she is not oriented to place or time today (She did not know she had hip surgery, did not remember that she fell and broke her hip). I had reoriented her to that information yesterday and her nurses regarding just her yesterday at least once an hour to that yesterday and today. When the patient was better, she did herself say she has early dementia. Continue to not give any narcotics, allow them to clear from her system. Continue with blood pressure support, IV hydration. Watch for infection or fever, especially atelectasis postop There are no focal signs to consider head CT (2) PSVT (paroxysmal supraventricular tachycardia) Assessment/Plan: She continues to have approximately 7 beat runs of very rapid SVT at rates of 170 on telemetry. Yesterday evening she also had sustained SVT at 160 for many minutes, did not become hypotensive during that, since she has no been adequately IV hydrated. Will increase her beta-hayley dose today since blood pressure is more stable. Remain on telemetry (3) Hypotension Assessment/Plan: Pressure has improved to the 120s. Will increase her beta-hayley dose to control the SVT. Continue with IV hydration but at a slower rate (4) Anemia Assessment/Plan: Probably related to hemodilution since she is blank liters positive since admission, because of hypotension and dehydration. She may have had blood loss in the OR and EBL. We will check B12 and folate levels and iron stores and replace if low (5) IHSS (idiopathic hypertrophic subaortic stenosis) Assessment/Plan: As per Echo done this admission, newly diagnosed apparently. She was on a poor choice of antihypertensives before admission: she should not be on diuretics or vasodilators, both of which would increased LV contractility, increase the gradient in her LV outflow tract (since she hasIHSS), lead to decreased cardiac output and hypotension. Negative inotropes are the treatment of choice and will discharge her on that, that will be her treatment for high blood pressure in the future (6) Pulmonary HTN Assessment/Plan: As per echo done this admission. This will need work-up in the future after discharge. I suspect she may have obesity hypoventilation syndrome or sleep apnea as the cause of her pulmonary hypertension (7) Femoral neck fracture Qualifiers: Encounter type: subsequent encounter Fracture type: closed Laterality: left Assessment/Plan: She is POD #3. She had no rehab while in the ICU with her SVT and hypotension. Continue to work with PT and OT, she will need a SNF for rehab (8) Fall at home Assessment/Plan: As per history. With her IHSS, she may have had hypotension causing syncope and a fall. Will need daily orthostatic vital sign checks. (9) Hypothyroidism Assessment/Plan: Continue home Thyroid meds (10) Elevated troponin Assessment/Plan: Minimally elevated, probably Demand ischemia related to SVT and hypotension (11) Hx of essential hypertension Assessment/Plan: She was on a poor choice of antihypertensives before admission: she should not be on diuretics or vasodilators, both of which would increased LV contractility, increase the gradient in her LV outflow tract (since she hasIHSS), lead to decr eased cardiac output and hypotension. Negative inotropes are the treatment of choice and will discharge her on that, that will be her treatment for high blood pressure in the future (12) Metabolic acidosis Assessment/Plan: Resolved (13) JOSR (acute kidney injury) Assessment/Plan: Resolved - Current Meds Current Meds: Current Medications Generic Name Dose Route Start Last Admin Trade Name Freq PRN Reason Stop Dose Admin Aspirin 81 mg 12/26/19 21:00 12/29/19 08:31 Ecotrin PO 81 mg BID [place] Administration Bisacodyl 10 mg 12/26/19 16:38 12/28/19 14:01 Dulcolax Supp [place] 10 mg Q12H PRN Administration Constipation Calcium Citrate 250 mg 12/27/19 09:00 12/29/19 08:31 PO 250 mg DAILY AUGUSAT Administration Cholecalciferol 800 unit 12/27/19 09:00 12/29/19 08:31 Vitamin D3 PO 800 unit DAILY [place] Administration Citalopram Hydrobromide 10 mg 12/29/19 12:00 12/29/19 12:01 Celexa PO 10 mg DAILY [place] Administration Cyclobenzaprine HCl 10 mg 12/27/19 12:20 12/28/19 16:19 Flexeril PO 10 mg TID PRN Administration Spasms Ferrous Gluconate 324 mg 12/28/19 12:00 12/29/19 08:31 Fergon PO 324 mg DAILYWM [place] Administration Folic Acid 1 mg 12/28/19 12:00 12/29/19 08:31 PO 1 mg DAILY [place] Administration Sodium Chloride 1,000 mls @ 60 mls/hr 12/28/19 09:12 12/29/19 05:45 Normal Saline 0.9% IV 60 mls/hr .[id number] [place] Administration Ketorolac Tromethamine 15 mg 12/26/19 16:38 12/28/19 16:19 Toradol Inj (15mg) IVP 12/31/19 16:37 15 mg Q6HR PRN Administration PAIN Levothyroxine Sodium 25 mcg 12/28/19 07:00 12/29/19 05:44 Synthroid PO 25 mcg QDAC [place] Administration Ondansetron HCl 4 mg 12/25/19 19:16 12/26/19 22:00 Zofran Inj IVP 4 mg Q6HR PRN Administration Nausea / Vomiting Sodium Chloride 10 ml 12/26/19 17:00 12/29/19 09:34 Normal Saline Flush 0.9% IVP Not Given 0100,0900,1700 [place] Sodium Chloride 10 ml 12/26/19 16:56 12/26/19 22:08 Normal Saline Flush 0.9% IVP 10 ml PRN PRN Administration NEEDED PER PROVIDER ORDERS Throat Lozenges 1 lozenge 12/27/19 00:53 12/27/19 02:50 Cepacol MM 1 lozenge Q2HR PRN Administration Throat pain - Lab Result Fish Bone Diagrams: 12/29/19 17:02 12/29/19 05:16 - Additional Planning My Orders: My Active Orders 12/29/19 12:00 Citalopram [CeleXA] 10 mg PO DAILY 12/29/19 17:02 HEMOGLOBIN AND HEMATOCRIT [HEME] Q12H 12/29/19 21:00 Metoprolol Succinate [Toprol Xl] 25 mg PO BID 12/30/19 05:00 HEMOGLOBIN AND HEMATOCRIT [HEME] Q12H 12/30/19 17:00 HEMOGLOBIN AND HEMATOCRIT [HEME] Q12H 12/31/19 05:00 HEMOGLOBIN AND HEMATOCRIT [HEME] Q12H Subjective - Subjective Patient Reports: No Complaints Nursing Reports: Other (Very confused, cannot remember how she got here, cannot remember her fall or having surgery, needs reorienting multiple times per day) Objective Vital Signs: Vital Signs - 24 hr 12/28/19 12/28/19 12/28/19 17:49 17:51 17:55 Temperature Heart Rate [ 117 H 112 H Brachial] Respiratory Rate Blood Pressure 103/76 Blood Pressure 135/76 H 125/70 [Left Brachial artery] Blood Pressure [Right Brachial artery] O2 Saturation 98 12/28/19 12/28/19 12/28/19 18:01 18:05 18:20 Temperature Heart Rate [ 117 H 108 H 110 H Brachial] Respiratory Rate Blood Pressure Blood Pressure 138/79 H 128/69 125/59 L [Left Brachial artery] Blood Pressure [Right Brachial artery] O2 Saturation 12/28/19 12/28/19 12/28/19 18:35 18:50 20:09 Temperature Heart Rate [ 116 H 105 H Brachial] Respiratory Rate Blood Pressure 125/59 L Blood Pressure 120/59 L 115/64 [Left Brachial artery] Blood Pressure [Right Brachial artery] O2 Saturation 12/28/19 12/29/19 12/29/19 20:46 00:20 05:29 Temperature 36.5 C 36.8 C 36.8 C Heart Rate [ 102 H 118 H 100 Brachial] Respiratory 18 20 18 Rate Blood Pressure Blood Pressure 124/58 L 144/83 H 138/62 H [Left Brachial artery] Blood Pressure [Right Brachial artery] O2 Saturation 99 98 96 12/29/19 12/29/19 12/29/19 09:00 12:01 12:51 Temperature 36.4 C L 37.6 C Heart Rate [ 100 120 H Brachial] Respiratory 18 Rate Blood Pressure 134/74 H Blood Pressure 106/84 H [Left Brachial artery] Blood Pressure 125/63 [Right Brachial artery] O2 Saturation 100 89 L 12/29/19 16:02 Temperature 36.9 C Heart Rate [ 106 H Brachial] Respiratory 18 Rate Blood Pressure Blood Pressure [Left Brachial artery] Blood Pressure 126/71 [Right Brachial artery] O2 Saturation 98 Oxygen O2 Source Room air I&O (Last 24 Hrs): Intake and Output Totals x24h 12/27/19 12/28/19 12/29/19 23:59 23:59 23:59 Intake Total 4798.334 2653.333 1910 Output Total 2510 2200 1650 Balance 2288.334 453.333 260 General: Other (Awake, pale) HEENT: Mucous membr. moist/pink Neck: Supple, No JVD Neuro: Disoriented, Non Focal Cardiovascular: Regular rate, Other (3/6 systolic murmur throughout) Respiratory: No respiratory distress Abdomen: Soft, Other (Obese with pannus) Extremities: No edema - Results Results: Laboratory Results WBC 8.5 x10^3/uL (4.8-10.8) 12/29/19 05:16 RBC 3.09 10^6/uL (4.20-5.40) L 12/29/19 05:16 Hgb 9.2 g/dL (12.0-16.0) L 12/29/19 09:04 Hct 27.3 % (37.0-47.0) L 12/29/19 09:04 MCV 89.0 fL (81.0-99.0) 12/29/19 05:16 MCH 28.8 pg (27.0-31.0) 12/29/19 05:16 MCHC 32.4 g/dL (32.0-36.0) 12/29/19 05:16 RDW 12.9 % (12.0-15.0) 12/29/19 05:16 Plt Count 193 10^3/uL (130-450) 12/29/19 05:16 MPV 10.3 fL (7.9-10.8) 12/29/19 05:16 Neut # (Auto) 6.1 10^3/uL (1.5-6.6) 12/29/19 05:16 Lymph # (Auto) 1.6 10^3/uL (1.5-3.5) 12/29/19 05:16 [place] # (Auto) 0.5 10^3/uL (0.0-1.0) 12/29/19 05:16 Eos # (Auto) 0.2 10^3/uL (0.0-0.7) 12/29/19 05:16 Baso # (Auto) 0.0 10^3/uL (0.0-0.1) 12/29/19 05:16 Absolute Nucleated RBC 0.00 x10^3/uL 12/29/19 05:16 Nucleated RBC % 0.0 /100WBC 12/29/19 05:16 PT 13.0 secs (9.9-12.6) H 12/25/19 19:45 INR 1.2 (0.8-1.2) 12/25/19 19:45 Bld Gas Analysis Time 1712 12/26/19 17:05 Sample Site RIGHT RADIAL 12/26/19 17:05 ABG pH 7.30 (7.35-7.45) L 12/26/19 17:05 ABG pCO2 38 mmHg (34-45) 12/26/19 17:05 ABG pO2 111 mmHg (80-100) H 12/26/19 17:05 ABG HCO3 18.0 mmol/L (22.0-26.0) L 12/26/19 17:05 ABG Total CO2 19.2 MMOL/L (21.0-29.0) L 12/26/19 17:05 ABG O2 Saturation 98 % (94-98) 12/26/19 17:05 ABG Base Excess -7.8 mmol/L (-2.0-3.0) L 12/26/19 17:05 Roe Test POSITIVE 12/26/19 17:05 VBG pH 7.463 (7.31-7.41) H 12/27/19 00:44 VBG pCO2 29.0 mmHg (41-51) L 12/27/19 00:44 VBG pO2 159.7 mmHg (25-47) H 12/27/19 00:44 VBG HCO3 20.3 mmol/L (23-28) L 12/27/19 00:44 VBG Total CO2 21.2 mmol/L (24-29) L 12/27/19 00:44 VBG O2 Saturation 98.6 % (60-80) H 12/27/19 00:44 VBG Base Excess -2.6 mmol/L (-2 - +2) L 12/27/19 00:44 O2 Delivery Device SIMPLE MASK 12/26/19 17:05 O2 Liters/Min 7.00 LPM 12/26/19 17:05 Sodium 136 mmol/L (135-145) 12/29/19 05:16 Potassium 4.0 mmol/L (3.5-5.0) 12/29/19 05:16 Chloride 106 mmol/L (101-111) 12/29/19 05:16 Carbon Dioxide 23 mmol/L (21-32) 12/29/19 05:16 Anion Gap 7.0 (6-13) 12/29/19 05:16 BUN 15 mg/dL (6-20) 12/29/19 05:16 Creatinine 0.8 mg/dL (0.4-1.0) 12/29/19 05:16 Estimated GFR (MDRD) 68 (>89) L 12/29/19 05:16 Glucose 109 mg/dL (70-100) H 12/29/19 05:16 POC Whole Bld Glucose 102 mg/dL (70 - 100) H 12/29/19 08:23 Calcium 8.4 mg/dL (8.5-10.3) L 12/29/19 05:16 Phosphorus 2.9 mg/dL (2.5-4.6) 12/29/19 05:16 Magnesium 1.9 mg/dL (1.7-2.8) 12/29/19 05:16 Iron 7 ug/dL (28-170) L 12/28/19 04:55 TIBC 209 ug/dL (250-450) L 12/28/19 04:55 % Saturation 3 % (20-50) L 12/28/19 04:55 Transferrin 149 mg/dL (192-382) L 12/28/19 04:55 Total Bilirubin 1.0 mg/dL (0.2-1.0) 12/25/19 17:45 Direct Bilirubin 0.2 mg/dL (0.1-0.5) 12/25/19 17:45 AST 29 IU/L (10-42) 12/25/19 17:45 ALT 29 IU/L (10-60) 12/25/19 17:45 Alkaline Phosphatase 64 IU/L (42-121) 12/25/19 17:45 Troponin I High Sens 33.0 ng/L (2.3-14.8) H* 12/27/19 04:52 Total Protein 7.8 g/dL (6.7-8.2) 12/25/19 17:45 Albumin 4.0 g/dL (3.2-5.5) 12/25/19 17:45 Globulin 3.8 g/dL (2.1-4.2) 12/25/19 17:45 Vitamin B12 273 pg/mL (180-914) 12/28/19 04:55 Folate 4.12 ng/mL (5.90 - >24.8) L 12/28/19 04:55 TSH 7.33 uIU/mL (0.34-5.60) H 12/26/19 16:55 Free T4 1.33 ng/dL (0.58-1.64) 12/27/19 04:52 Urine Color YELLOW 12/25/19 17:52 Urine Clarity CLEAR (CLEAR) 12/25/19 17:52 Urine pH 7.5 PH (5.0-7.5) 12/25/19 17:52 Ur Specific [place] 1.020 (1.002-1.030) 12/25/19 17:52 Urine Protein NEGATIVE mg/dL (NEGATIVE) 12/25/19 17:52 Urine Glucose (UA) NEGATIVE mg/dL (NEGATIVE) 12/25/19 17:52 Urine Ketones TRACE mg/dL (NEGATIVE) 12/25/19 17:52 Urine Occult Blood SMALL (NEGATIVE) H 12/25/19 17:52 Urine Nitrite NEGATIVE (NEGATIVE) 12/25/19 17:52 Urine Bilirubin NEGATIVE (NEGATIVE) 12/25/19 17:52 Urine Urobilinogen 0.2 (NORMAL) E.U./dL (NORMAL) 12/25/19 17:52 Ur Leukocyte Esterase NEGATIVE (NEGATIVE) 12/25/19 17:52 Urine RBC 0-5 /HPF (0-5) 12/25/19 17:52 Urine WBC 0-3 /HPF (0-5) 12/25/19 17:52 Ur Squamous Epith Cells RARE Squamous (<= Few) 12/25/19 17:52 Urine Bacteria Rare /HPF (None Seen) 12/25/19 17:52 Ur Microscopic Review INDICATED 12/25/19 17:52 Urine Culture Comments NOT INDICATED 12/25/19 17:52 Nasal Adenovirus (PCR) NOT DETECTED 12/25/19 19:05 Nasal B. parapertussis DNA (PCR) NOT DETECTED 12/25/19 19:05 Nasal Coronavir 229E PCR NOT DETECTED 12/25/19 19:05 Nasal Coronavir HKU1 PCR NOT DETECTED 12/25/19 19:05 Nasal Coronavir NL63 PCR NOT DETECTED 12/25/19 19:05 Nasal Coronavir OC43 PCR NOT DETECTED 12/25/19 19:05 Nasal Enterovir/Rhinovir PCR NOT DETECTED 12/25/19 19:05 Nasal Influenza B PCR NOT DETECTED 12/25/19 19:05 Nasal Influenza A PCR NOT DETECTED 12/25/19 19:05 Nasal Parainfluen 1 PCR NOT DETECTED 12/25/19 19:05 Nasal Parainfluen 2 PCR NOT DETECTED 12/25/19 19:05 Nasal Parainfluen 3 PCR NOT DETECTED 12/25/19 19:05 Nasal Parainfluen 4 PCR NOT DETECTED 12/25/19 19:05 Nasal RSV (PCR) NOT DETECTED 12/25/19 19:05 Nasal Screen MRSA (PCR) NEGATIVE (NEGATIVE) 12/26/19 17:45 Nasal B.pertussis DNA PCR NOT DETECTED 12/25/19 19:05 Nasal C.pneumoniae (PCR) NOT DETECTED 12/25/19 19:05 Sae Human Metapneumo PCR NOT DETECTED 12/25/19 19:05 Nasal M.pneumoniae (PCR) NOT DETECTED 12/25/19 19:05 Nasal SARS-CoV-2 (PCR) NOT DETECTED 12/25/19 19:05 Blood Type B POSITIVE 12/25/19 20:12 Blood Type Recheck B POSITIVE 12/25/19 05:17 Antibody Screen NEGATIVE 12/25/19 20:12
[2019-12-29 17:16] LABS: HGB - HEMOGLOBIN 8.3 g/dL (12.0-16.0)
[2019-12-29] MEDS: QUEtiapine 25 MG TABLET PO SCH (20:46)
[2019-12-29] MEDS: METOPROLOL SUCCINATE 25 MG TABLET PO SCH (20:46)
[2019-12-29] MEDS: CYCLOBENZAPRINE 10 MG TABLET PO PRN (22:12)
[2019-12-30] MEDS: SODIUM CHLORIDE FLUSH 0.9% 10 ML SYRINGE IVP SCH ×3 (00:38→16:46)
[2019-12-30 05:27] LABS: BASOPHILS % (AUTO) 0.4 %; EOSINOPHILS # (AUTO) 0.2 10^3/uL (0.0-0.7); EOSINOPHILS % (AUTO) 2.9 %; HGB - HEMOGLOBIN 8.1 g/dL (12.0-16.0); LYMPHOCYTES # (AUTO) 1.5 10^3/uL (1.5-3.5); LYMPHOCYTES % (AUTO) 19.1 %; MEAN CORPUSCULAR HGB CONC 32.8 g/dL (32.0-36.0); MEAN CORPUSCULAR VOLUME 88.5 fL (81.0-99.0); MEAN PLATELET VOLUME 9.8 fL (7.9-10.8); MONOCYTES # (AUTO) 0.6 10^3/uL (0.0-1.0); MONOCYTES % (AUTO) 7.6 %; NEUTROPHILS # (AUTO) 5.6 10^3/uL (1.5-6.6); NEUTROPHILS % (AUTO) 69.6 %; PLT - PLATELET COUNT 221 10^3/uL (130-450); RED BLOOD COUNT 2.79 10^6/uL (4.20-5.40); RED CELL DISTRIBUTION WIDTH 12.7 % (12.0-15.0)
[2019-12-30 05:35] LABS: CALCIUM 8.5 mg/dL (8.5-10.3); CREATININE 0.9 mg/dL (0.4-1.0)
[2019-12-30] MEDS: LEVOTHYROXINE 25 MCG TABLET PO SCH (07:43)
[2019-12-30] MEDS: ASPIRIN EC 81 MG TABLET PO SCH ×2 (07:45→20:46)
[2019-12-30] MEDS: FERROUS GLUCONATE 324 MG TABLET PO SCH (07:45)
[2019-12-30] MEDS: CALCIUM CITRATE 250 MG TABLET PO SCH (07:46)
[2019-12-30] MEDS: CITALOPRAM 10 MG TABLET PO SCH (07:46)
[2019-12-30] MEDS: CHOLECALCIFEROL 400 UNIT TABLET PO SCH (07:46)
[2019-12-30] MEDS: METOPROLOL SUCCINATE 25 MG TABLET PO SCH ×2 (07:46→20:46)
[2019-12-30] MEDS: FOLIC ACID 1 MG TABLET PO SCH (07:46)
--- NOTE | 2019-12-30 10:10 | PROVIDER PROGRESS NOTE ---
Subjective - Prog Note Date Prog Note Date: 12/30/19 - Subjective Pt reports feeling: No change (Pain well controlled. No numbness or tingling to the foot. Very slow to mobilize.) Objective - Vital Signs/Intake & Output Reviewed Vital Signs: Yes Vital Signs: Vital Signs x48h Temp Pulse Resp BP BP Pulse Ox 12/30/19 07:53 36.8 C 101 H 19 136/71 H 95 12/30/19 05:00 36.3 C L 93 18 143/69 H 94 Intake & Output: Intake & Output 12/27/19 12/28/19 12/29/19 12/30/19 23:59 23:59 23:59 23:59 Intake Total 4798.334 2653.333 2895 400 Output Total 2510 2200 1850 1050 Balance 2288.334 757.273 3353 -650 - Objective General Appearance: positive: No acute distress Eyes Bilateral: positive: PERRL Respiratory: positive: No respiratory distress Cardiovascular: positive: Other (Warm well perfused foot) Skin: positive: Other (Dressing intact) Extremities: positive: Other (Minimal thigh tenderness. Hip range of motion well-tolerated.) Neurologic/Psychiatric: positive: Oriented x3, Motor nml, Sensation nml - Lab Results Fish Bones: 12/30/19 05:10 12/30/19 05:10 Other Labs: Lab Results x24hrs 12/30/19 12/30/19 12/29/19 Range/Units 05:10 05:10 17:02 WBC 8.0 (4.8-10.8) x10^3/uL RBC 2.79 L (4.20-5.40) 10^6/uL Hgb 8.1 L 8.3 L (12.0-16.0) g/dL Hct 24.7 L 25.6 L (37.0-47.0) % MCV 88.5 (81.0-99.0) fL MCH 29.0 (27.0-31.0) pg MCHC 32.8 (32.0-36.0) g/dL RDW 12.7 (12.0-15.0) % Plt Count 221 (130-450) 10^3/uL MPV 9.8 (7.9-10.8) fL Neut # (Auto) 5.6 (1.5-6.6) 10^3/uL Lymph # (Auto) 1.5 (1.5-3.5) 10^3/uL [place] # (Auto) 0.6 (0.0-1.0) 10^3/uL Eos # (Auto) 0.2 (0.0-0.7) 10^3/uL Baso # (Auto) 0.0 (0.0-0.1) 10^3/uL Absolute Nucleated RBC 0.00 x10^3/uL Nucleated RBC % 0.0 /100WBC Sodium 134 L (135-145) mmol/L Potassium 3.8 (3.5-5.0) mmol/L Chloride 104 (101-111) mmol/L Carbon Dioxide 21 (21-32) mmol/L Anion Gap 9.0 (6-13) BUN 17 (6-20) mg/dL Creatinine 0.9 (0.4-1.0) mg/dL Estimated GFR (MDRD) 60 L (>89) Glucose 106 H (70-100) mg/dL Calcium 8.5 (8.5-10.3) mg/dL Assessment/Plan - Problem List (1) Femoral neck fracture Impression: Stable POD 4 left total hip for fracture. Very slow to mobilize. Need to mobilize with physical therapy, [facility] to [facility]. Follow- up 10 to 14 days for wound check. Aspirin 81 mg twice daily for 28 days for prophylaxis against DVT. Anterior hip precautions. Follow-up in clinic in 6 weeks with radiographs of the hip. Qualifiers: Encounter type: subsequent encounter Fracture type: closed Laterality: left
--- NOTE | 2019-12-30 10:12 | PROVIDER PROGRESS NOTE ---
Subjective - Prog Note Date Prog Note Date: 12/29/19 - Subjective Pt reports feeling: Improved (Pain well controlled) Objective - Vital Signs/Intake & Output Reviewed Vital Signs: Yes Vital Signs: Vital Signs x48h Temp Pulse Resp BP BP Pulse Ox 12/30/19 07:53 36.8 C 101 H 19 136/71 H 95 12/30/19 05:00 36.3 C L 93 18 143/69 H 94 Intake & Output: Intake & Output 12/27/19 12/28/19 12/29/19 12/30/19 23:59 23:59 23:59 23:59 Intake Total 4798.334 2653.333 2895 400 Output Total 2510 2200 1850 1050 Balance 2288.334 903.733 2390 -650 - Objective General Appearance: positive: No acute distress Eyes Bilateral: positive: PERRL Respiratory: positive: No respiratory distress Cardiovascular: positive: Regular rate & rhythm Extremities: positive: Other (Minimal thigh and hip tenderness) Neurologic/Psychiatric: positive: Motor nml, Sensation nml - Lab Results Fish Bones: 12/30/19 05:10 12/30/19 05:10 Other Labs: Lab Results x24hrs 12/30/19 12/30/19 12/29/19 Range/Units 05:10 05:10 17:02 WBC 8.0 (4.8-10.8) x10^3/uL RBC 2.79 L (4.20-5.40) 10^6/uL Hgb 8.1 L 8.3 L (12.0-16.0) g/dL Hct 24.7 L 25.6 L (37.0-47.0) % MCV 88.5 (81.0-99.0) fL MCH 29.0 (27.0-31.0) pg MCHC 32.8 (32.0-36.0) g/dL RDW 12.7 (12.0-15.0) % Plt Count 221 (130-450) 10^3/uL MPV 9.8 (7.9-10.8) fL Neut # (Auto) 5.6 (1.5-6.6) 10^3/uL Lymph # (Auto) 1.5 (1.5-3.5) 10^3/uL [place] # (Auto) 0.6 (0.0-1.0) 10^3/uL Eos # (Auto) 0.2 (0.0-0.7) 10^3/uL Baso # (Auto) 0.0 (0.0-0.1) 10^3/uL Absolute Nucleated RBC 0.00 x10^3/uL Nucleated RBC % 0.0 /100WBC Sodium 134 L (135-145) mmol/L Potassium 3.8 (3.5-5.0) mmol/L Chloride 104 (101-111) mmol/L Carbon Dioxide 21 (21-32) mmol/L Anion Gap 9.0 (6-13) BUN 17 (6-20) mg/dL Creatinine 0.9 (0.4-1.0) mg/dL Estimated GFR (MDRD) 60 L (>89) Glucose 106 H (70-100) mg/dL Calcium 8.5 (8.5-10.3) mg/dL Assessment/Plan - Problem List (1) Femoral neck fracture Impression: Stable POD 3 left total hip. Will require discharge to halfway facility. PT to mobilize Qualifiers: Encounter type: subsequent encounter Fracture type: closed Laterality: left
[2019-12-30] MEDS: KETOROLAC 15 MG/ML VIAL IVP PRN (10:38)
[2019-12-30] MEDS: CYCLOBENZAPRINE 10 MG TABLET PO PRN ×2 (11:54→20:46)
[2019-12-30] MEDS: SODIUM CHLORIDE 0.9% 1,000 ML IV SCH (15:08)
[2019-12-30 17:14] LABS: HGB - HEMOGLOBIN 8.6 g/dL (12.0-16.0)
--- NOTE | 2019-12-30 19:49 | PROVIDER PROGRESS NOTE ---
Assessment/Plan - Problem List (1) Altered mental status Assessment/Plan: This patient was able to give a history and only stumbled slightly with memory, on the day of admission. Following her surgery, she has been confused, despite narcotics being stopped. The patient was able to say that she has "early signs of dementia" when she was first admitted. We will try to avoid all sedatives, narcotics and continue to redirect her. Also consider head CT or brain MRI. (2) PSVT (paroxysmal supraventricular tachycardia) Assessment/Plan: In the OR she had very rapid sustained SVT that caused hypotension, she was in the ICU for 2 days, volume was replaced and meds were started for rate control. She still gets brief PSVT's and has had some longer sustained SVT at rates of 120 with which she does not drop her blood pressure anymore. Continue to increase heart rate slowing meds if needed. (3) Anemia Assessment/Plan: Serum levels were done in this patient has iron deficiency as well as folate deficiency. Wer started iron replacement and folate replacement orally (4) IHSS (idiopathic hypertrophic subaortic stenosis) Assessment/Plan: As per Echo done this admission, newly diagnosed apparently, since she did not know she had a murmur. She was on a poor choice of antihypertensives before admission: she should not be on diuretics or vasodilators, both of which would increased LV contractility, increase the gradient in her LV outflow tract (since she hasIHSS), lead to decreased cardiac output and hypotension. Negative inotropes are the treatment of choice and will discharge her on that, which will be her treatment for high blood pressure in the future (5) Pulmonary HTN Assessment/Plan: As per Echo done this admission The etiology could be obesity hypoventilation syndrome or sleep apnea, which need work-up as an outpatient (6) Femoral neck fracture Qualifiers: Encounter type: subsequent encounter Fracture type: closed Laterality: left Assessment/Plan: He had successful surgery on this and is starting PT. She will need SNF before returning home. (7) Fall at home Assessment/Plan: As per history. With her IHSS, she may have had hypotension causing syncope and a fall. Consider doing occaisional orthostatic vital sign checks. (8) Hypothyroidism Assessment/Plan: Continue home Thyroid meds (9) Hx of essential hypertension Assessment/Plan: Her BP meds were on hold because of hypotension for several days. Her BP meds were also incorrect for somebody that has IHSS. (10) Metabolic acidosis Assessment/Plan: Resolved (11) JOSR (acute kidney injury) Assessment/Plan: Resolved with iv hydration (12) Hypotension Assessment/Plan: Resolved after volume replacement in the ICU - Current Meds Current Meds: Current Medications Generic Name Dose Route Start Last Admin Trade Name Freq PRN Reason Stop Dose Admin Aspirin 81 mg 12/26/19 21:00 12/30/19 07:45 Ecotrin PO 81 mg BID [place] Administration Bisacodyl 10 mg 12/26/19 16:38 12/28/19 14:01 Dulcolax Supp VT 10 mg Q12H PRN Administration Constipation Calcium Citrate 250 mg 12/27/19 09:00 12/30/19 07:46 PO 250 mg DAILY [place] Administration Cholecalciferol 800 unit 12/27/19 09:00 12/30/19 07:46 Vitamin D3 PO 800 unit DAILY [place] Administration Citalopram Hydrobromide 10 mg 12/29/19 12:00 12/30/19 07:46 Celexa PO 10 mg DAILY [place] Administration Cyclobenzaprine HCl 10 mg 12/27/19 12:20 12/30/19 11:54 Flexeril PO 10 mg TID PRN Administration Spasms Ferrous Gluconate 324 mg 12/28/19 12:00 12/30/19 07:45 Fergon PO 324 mg DAILYWM [place] Administration Folic Acid 1 mg 12/28/19 12:00 12/30/19 07:46 PO 1 mg DAILY [place] Administration Sodium Chloride 1,000 mls @ 60 mls/hr 12/28/19 09:12 12/30/19 15:08 Normal Saline 0.9% IV 60 mls/hr .[id number] [place] Administration Ketorolac Tromethamine 15 mg 12/26/19 16:38 12/30/19 10:38 Toradol Inj (15mg) IVP 12/31/19 16:37 15 mg Q6HR PRN Administration PAIN Levothyroxine Sodium 25 mcg 12/28/19 07:00 12/30/19 07:43 Synthroid PO 25 mcg QDAC [place] Administration Metoprolol Succinate 25 mg 12/29/19 21:00 12/30/19 07:46 Toprol Xl PO 25 mg BID [place] Administration Ondansetron HCl 4 mg 12/25/19 19:16 12/26/19 22:00 Zofran Inj IVP 4 mg Q6HR PRN Administration Nausea / Vomiting Quetiapine Fumarate 25 mg 12/29/19 21:00 12/29/19 20:46 Seroquel PO 25 mg QPM [place] Administration Sodium Chloride 10 ml 12/26/19 17:00 12/30/19 16:46 Normal Saline Flush 0.9% IVP 10 ml 0100,0900,1700 [place] Administration Sodium Chloride 10 ml 12/26/19 16:56 12/26/19 22:08 Normal Saline Flush 0.9% IVP 10 ml PRN PRN Administration NEEDED PER PROVIDER ORDERS Throat Lozenges 1 lozenge 12/27/19 00:53 12/27/19 02:50 Cepacol MM 1 lozenge Q2HR PRN Administration Throat pain - Lab Result Fish Bone Diagrams: 12/30/19 17:04 12/30/19 05:10 - Additional Planning My Orders: My Active Orders 12/29/19 21:00 Metoprolol Succinate [Toprol Xl] 25 mg PO BID QUEtiapine [SEROquel] 25 mg PO QPM 12/31/19 05:00 HEMOGLOBIN AND HEMATOCRIT [HEME] Q12H Subjective - Subjective Nursing Reports: Other (Patient continues to need redirecting and reminders of having fallen, having had surgery, multiple times per day. She does follow cues and directions and is able to work with physical therapy.) Objective Vital Signs: Vital Signs - 24 hr 12/29/19 12/30/19 12/30/19 20:45 00:34 05:00 Temperature 37.4 C 36.3 C L Heart Rate [ 115 H 106 H 93 Brachial] Respiratory 18 18 18 Rate Blood Pressure [Left Brachial artery] Blood Pressure 149/84 H 134/69 H 143/69 H [Right Brachial artery] O2 Saturation 97 95 94 12/30/19 12/30/19 12/30/19 07:53 11:26 16:11 Temperature 36.8 C 36.9 C 36.8 C Heart Rate [ 101 H 90 94 Brachial] Respiratory 19 18 18 Rate Blood Pressure 136/71 H 119/71 [Left Brachial artery] Blood Pressure 129/77 [Right Brachial artery] O2 Saturation 95 99 98 Oxygen O2 Source Room air I&O (Last 24 Hrs): Intake and Output Totals x24h 12/28/19 12/29/19 12/30/19 23:59 23:59 23:59 Intake Total 2653.333 2895 1840 Output Total 2200 1850 2000 Balance 892.624 5514 -160 General: Alert HEENT: Mucous membr. moist/pink Neck: No JVD Neuro: Alert, Disoriented Cardiovascular: Regular rate, Other (2-3/6 murmur) Respiratory: No respiratory distress Abdomen: Soft, Other (Obese with pannus) Extremities: No edema - Results Results: Laboratory Results WBC 8.0 x10^3/uL (4.8-10.8) 12/30/19 05:10 RBC 2.79 10^6/uL (4.20-5.40) L 12/30/19 05:10 Hgb 8.6 g/dL (12.0-16.0) L 12/30/19 17:04 Hct 26.5 % (37.0-47.0) L 12/30/19 17:04 MCV 88.5 fL (81.0-99.0) 12/30/19 05:10 MCH 29.0 pg (27.0-31.0) 12/30/19 05:10 MCHC 32.8 g/dL (32.0-36.0) 12/30/19 05:10 RDW 12.7 % (12.0-15.0) 12/30/19 05:10 Plt Count 221 10^3/uL (130-450) 12/30/19 05:10 MPV 9.8 fL (7.9-10.8) 12/30/19 05:10 Neut # (Auto) 5.6 10^3/uL (1.5-6.6) 12/30/19 05:10 Lymph # (Auto) 1.5 10^3/uL (1.5-3.5) 12/30/19 05:10 Sampson # (Auto) 0.6 10^3/uL (0.0-1.0) 12/30/19 05:10 Eos # (Auto) 0.2 10^3/uL (0.0-0.7) 12/30/19 05:10 Baso # (Auto) 0.0 10^3/uL (0.0-0.1) 12/30/19 05:10 Absolute Nucleated RBC 0.00 x10^3/uL 12/30/19 05:10 Nucleated RBC % 0.0 /100WBC 12/30/19 05:10 PT 13.0 secs (9.9-12.6) H 12/25/19 19:45 INR 1.2 (0.8-1.2) 12/25/19 19:45 Bld Gas Analysis Time 1712 12/26/19 17:05 Sample Site RIGHT RADIAL 12/26/19 17:05 ABG pH 7.30 (7.35-7.45) L 12/26/19 17:05 ABG pCO2 38 mmHg (34-45) 12/26/19 17:05 ABG pO2 111 mmHg (80-100) H 12/26/19 17:05 ABG HCO3 18.0 mmol/L (22.0-26.0) L 12/26/19 17:05 ABG Total CO2 19.2 MMOL/L (21.0-29.0) L 12/26/19 17:05 ABG O2 Saturation 98 % (94-98) 12/26/19 17:05 ABG Base Excess -7.8 mmol/L (-2.0-3.0) L 12/26/19 17:05 Roe Test POSITIVE 12/26/19 17:05 VBG pH 7.463 (7.31-7.41) H 12/27/19 00:44 VBG pCO2 29.0 mmHg (41-51) L 12/27/19 00:44 VBG pO2 159.7 mmHg (25-47) H 12/27/19 00:44 VBG HCO3 20.3 mmol/L (23-28) L 12/27/19 00:44 VBG Total CO2 21.2 mmol/L (24-29) L 12/27/19 00:44 VBG O2 Saturation 98.6 % (60-80) H 12/27/19 00:44 VBG Base Excess -2.6 mmol/L (-2 - +2) L 12/27/19 00:44 O2 Delivery Device SIMPLE MASK 12/26/19 17:05 O2 Liters/Min 7.00 LPM 12/26/19 17:05 Sodium 134 mmol/L (135-145) L 12/30/19 05:10 Potassium 3.8 mmol/L (3.5-5.0) 12/30/19 05:10 Chloride 104 mmol/L (101-111) 12/30/19 05:10 Carbon Dioxide 21 mmol/L (21-32) 12/30/19 05:10 Anion Gap 9.0 (6-13) 12/30/19 05:10 BUN 17 mg/dL (6-20) 12/30/19 05:10 Creatinine 0.9 mg/dL (0.4-1.0) 12/30/19 05:10 Estimated GFR (MDRD) 60 (>89) L 12/30/19 05:10 Glucose 106 mg/dL (70-100) H 12/30/19 05:10 POC Whole Bld Glucose 102 mg/dL (70 - 100) H 12/29/19 08:23 Calcium 8.5 mg/dL (8.5-10.3) 12/30/19 05:10 Phosphorus 2.9 mg/dL (2.5-4.6) 12/29/19 05:16 Magnesium 1.9 mg/dL (1.7-2.8) 12/29/19 05:16 Iron 7 ug/dL (28-170) L 12/28/19 04:55 TIBC 209 ug/dL (250-450) L 12/28/19 04:55 % Saturation 3 % (20-50) L 12/28/19 04:55 Transferrin 149 mg/dL (192-382) L 12/28/19 04:55 Total Bilirubin 1.0 mg/dL (0.2-1.0) 12/25/19 17:45 Direct Bilirubin 0.2 mg/dL (0.1-0.5) 12/25/19 17:45 AST 29 IU/L (10-42) 12/25/19 17:45 ALT 29 IU/L (10-60) 12/25/19 17:45 Alkaline Phosphatase 64 IU/L (42-121) 12/25/19 17:45 Troponin I High Sens 33.0 ng/L (2.3-14.8) H* 12/27/19 04:52 Total Protein 7.8 g/dL (6.7-8.2) 12/25/19 17:45 Albumin 4.0 g/dL (3.2-5.5) 12/25/19 17:45 Globulin 3.8 g/dL (2.1-4.2) 12/25/19 17:45 Vitamin B12 273 pg/mL (180-914) 12/28/19 04:55 Folate 4.12 ng/mL (5.90 - >24.8) L 12/28/19 04:55 TSH 7.33 uIU/mL (0.34-5.60) H 12/26/19 16:55 Free T4 1.33 ng/dL (0.58-1.64) 12/27/19 04:52 Urine Color YELLOW 12/25/19 17:52 Urine Clarity CLEAR (CLEAR) 12/25/19 17:52 Urine pH 7.5 PH (5.0-7.5) 12/25/19 17:52 Ur Specific [place] 1.020 (1.002-1.030) 12/25/19 17:52 Urine Protein NEGATIVE mg/dL (NEGATIVE) 12/25/19 17:52 Urine Glucose (UA) NEGATIVE mg/dL (NEGATIVE) 12/25/19 17:52 Urine Ketones TRACE mg/dL (NEGATIVE) 12/25/19 17:52 Urine Occult Blood SMALL (NEGATIVE) H 12/25/19 17:52 Urine Nitrite NEGATIVE (NEGATIVE) 12/25/19 17:52 Urine Bilirubin NEGATIVE (NEGATIVE) 12/25/19 17:52 Urine Urobilinogen 0.2 (NORMAL) E.U./dL (NORMAL) 12/25/19 17:52 Ur Leukocyte Esterase NEGATIVE (NEGATIVE) 12/25/19 17:52 Urine RBC 0-5 /HPF (0-5) 12/25/19 17:52 Urine WBC 0-3 /HPF (0-5) 12/25/19 17:52 Ur Squamous Epith Cells RARE Squamous (<= Few) 12/25/19 17:52 Urine Bacteria Rare /HPF (None Seen) 12/25/19 17:52 Ur Microscopic Review INDICATED 12/25/19 17:52 Urine Culture Comments NOT INDICATED 12/25/19 17:52 Nasal Adenovirus (PCR) NOT DETECTED 12/25/19 19:05 Nasal B. parapertussis DNA (PCR) NOT DETECTED 12/25/19 19:05 Nasal Coronavir 229E PCR NOT DETECTED 12/25/19 19:05 Nasal Coronavir HKU1 PCR NOT DETECTED 12/25/19 19:05 Nasal Coronavir NL63 PCR NOT DETECTED 12/25/19 19:05 Nasal Coronavir OC43 PCR NOT DETECTED 12/25/19 19:05 Nasal Enterovir/Rhinovir PCR NOT DETECTED 12/25/19 19:05 Nasal Influenza B PCR NOT DETECTED 12/25/19 19:05 Nasal Influenza A PCR NOT DETECTED 12/25/19 19:05 Nasal Parainfluen 1 PCR NOT DETECTED 12/25/19 19:05 Nasal Parainfluen 2 PCR NOT DETECTED 12/25/19 19:05 Nasal Parainfluen 3 PCR NOT DETECTED 12/25/19 19:05 Nasal Parainfluen 4 PCR NOT DETECTED 12/25/19 19:05 Nasal RSV (PCR) NOT DETECTED 12/25/19 19:05 Nasal Screen MRSA (PCR) NEGATIVE (NEGATIVE) 12/26/19 17:45 Nasal B.pertussis DNA PCR NOT DETECTED 12/25/19 19:05 Nasal C.pneumoniae (PCR) NOT DETECTED 12/25/19 19:05 Sae Human Metapneumo PCR NOT DETECTED 12/25/19 19:05 Nasal M.pneumoniae (PCR) NOT DETECTED 12/25/19 19:05 Nasal SARS-CoV-2 (PCR) NOT DETECTED 12/25/19 19:05 Blood Type B POSITIVE 12/25/19 20:12 Blood Type Recheck B POSITIVE 12/25/19 05:17 Antibody Screen NEGATIVE 12/25/19 20:12
[2019-12-30] MEDS: QUEtiapine 25 MG TABLET PO SCH (20:46)
[2019-12-31] MEDS: SODIUM CHLORIDE FLUSH 0.9% 10 ML SYRINGE IVP SCH ×3 (01:49→17:39)
[2019-12-31] MEDS: LEVOTHYROXINE 25 MCG TABLET PO SCH (05:54)
[2019-12-31 06:16] LABS: HGB - HEMOGLOBIN 8.5 g/dL (12.0-16.0)
[2019-12-31 08:56] LABS: CALCIUM 8.8 mg/dL (8.5-10.3)
[2019-12-31] MEDS: SODIUM CHLORIDE 0.9% 1,000 ML IV SCH ×2 (11:12→21:04)
[2019-12-31] MEDS: FERROUS GLUCONATE 324 MG TABLET PO SCH (11:13)
[2019-12-31] MEDS: ASPIRIN EC 81 MG TABLET PO SCH ×2 (11:14→20:25)
[2019-12-31] MEDS: CALCIUM CITRATE 250 MG TABLET PO SCH (11:14)
[2019-12-31] MEDS: CHOLECALCIFEROL 400 UNIT TABLET PO SCH (11:14)
[2019-12-31] MEDS: CITALOPRAM 10 MG TABLET PO SCH (11:14)
[2019-12-31] MEDS: METOPROLOL SUCCINATE 25 MG TABLET PO SCH ×2 (11:15→20:25)
[2019-12-31] MEDS: FOLIC ACID 1 MG TABLET PO SCH (11:15)
--- NOTE | 2019-12-31 12:50 | PROVIDER PROGRESS NOTE ---
Assessment/Plan - Problem List (1) Femoral neck fracture Qualifiers: Encounter type: subsequent encounter Fracture type: closed Laterality: left Assessment/Plan: 12/30 This is day 5 post status of left total hip repair. Improved, will continue physical therapist and occupational therapist. Plain to discharge to SNF tomorrow (2) Altered mental status resolved. Patient is alert, orientated today. (3) PSVT (paroxysmal supraventricular tachycardia) Patient is hemodynamic stable now. her heart rate is 95. Resolved. will continue metoprolol, continue telemetry (4) Anemia stable. postoperative anemia. 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 continue Metoprolol, advise pt followup with stunt person (6) Pulmonary HTN Assessment/Plan: pt's Echo done this admission reveals pulmonary HTN. The etiology could be obesity hypoventilation syndrome or sleep apnea, which need work-up as an outpatient. advise pt have out-pt sleep study. (7) Fall at home pt is negative for orthostatic hypotension, continue PT/OT, plan to be d/c to SNF (8) Hypothyroidism Assessment/Plan: Continue home Thyroid meds (9) Hx of essential hypertension stable, continue beta-hayley (10) Metabolic acidosis Assessment/Plan: Resolved (11) JOSR (acute kidney injury) Assessment/Plan: Resolved with iv hydration (12) Hypotension Assessment/Plan: Resolved after volume replacement in the ICU - Current Meds Current Meds: Current Medications Generic Name Dose Route Start Last Admin Trade Name Freq PRN Reason Stop Dose Admin Aspirin 81 mg 12/26/19 21:00 12/31/19 11:14 Ecotrin PO 81 mg BID [place] Administration Bisacodyl 10 mg 12/26/19 16:38 12/28/19 14:01 Dulcolax Supp MA 10 mg Q12H PRN Administration Constipation Calcium Citrate 250 mg 12/27/19 09:00 12/31/19 11:14 PO 250 mg DAILY [place] Administration Cholecalciferol 800 unit 12/27/19 09:00 12/31/19 11:14 Vitamin D3 PO 800 unit DAILY [place] Administration Citalopram Hydrobromide 10 mg 12/29/19 12:00 12/31/19 11:14 Celexa PO 10 mg DAILY [place] Administration Cyclobenzaprine HCl 10 mg 12/27/19 12:20 12/30/19 20:46 Flexeril PO 10 mg TID PRN Administration Spasms Ferrous Gluconate 324 mg 12/28/19 12:00 12/31/19 11:13 Fergon PO 324 mg DAILYWM [place] Administration Folic Acid 1 mg 12/28/19 12:00 12/31/19 11:15 PO 1 mg DAILY [place] Administration Sodium Chloride 1,000 mls @ 60 mls/hr 12/28/19 09:12 12/31/19 11:12 Normal Saline 0.9% IV 60 mls/hr .[id number] [place] Administration Ketorolac Tromethamine 15 mg 12/26/19 16:38 12/30/19 10:38 Toradol Inj (15mg) IVP 12/31/19 16:37 15 mg Q6HR PRN Administration PAIN Levothyroxine Sodium 25 mcg 12/28/19 07:00 12/31/19 05:54 Synthroid PO 25 mcg QDAC [place] Administration Metoprolol Succinate 25 mg 12/29/19 21:00 12/31/19 11:15 Toprol Xl PO 25 mg BID [place] Administration Ondansetron HCl 4 mg 12/25/19 19:16 12/26/19 22:00 Zofran Inj IVP 4 mg Q6HR PRN Administration Nausea / Vomiting Quetiapine Fumarate 25 mg 12/29/19 21:00 12/30/19 20:46 Seroquel PO 25 mg QPM [place] Administration Sodium Chloride 10 ml 12/26/19 17:00 12/31/19 11:15 Normal Saline Flush 0.9% IVP 10 ml 0100,0900,1700 [place] Administration Sodium Chloride 10 ml 12/26/19 16:56 12/26/19 22:08 Normal Saline Flush 0.9% IVP 10 ml PRN PRN Administration NEEDED PER PROVIDER ORDERS Throat Lozenges 1 lozenge 12/27/19 00:53 12/27/19 02:50 Cepacol MM 1 lozenge Q2HR PRN Administration Throat pain - Lab Result Fish Bone Diagrams: 12/31/19 06:10 12/31/19 06:14 - Additional Planning My Orders: My Active Orders 01/01/20 05:00 BMP - BASIC METABOLIC PANEL [CHEM] DAILYLAB CBC - COMP BLD CT W/AUTO DIFF [HEME] DAILYLAB 01/02/20 05:00 BMP - BASIC METABOLIC PANEL [CHEM] DAILYLAB CBC - COMP BLD CT W/AUTO DIFF [HEME] DAILYLAB 01/03/20 05:00 BMP - BASIC METABOLIC PANEL [CHEM] DAILYLAB CBC - COMP BLD CT W/AUTO DIFF [HEME] DAILYLAB 01/04/20 05:00 BMP - BASIC METABOLIC PANEL [CHEM] DAILYLAB CBC - COMP BLD CT W/AUTO DIFF [HEME] DAILYLAB 01/05/20 05:00 BMP - BASIC METABOLIC PANEL [CHEM] DAILYLAB CBC - COMP BLD CT W/AUTO DIFF [HEME] DAILYLAB 01/06/20 05:00 BMP - BASIC METABOLIC PANEL [CHEM] DAILYLAB CBC - COMP BLD CT W/AUTO DIFF [HEME] DAILYLAB Subjective - Subjective Patient Reports: Feeling Better Nursing Reports: No Complaints Objective Vital Signs: Vital Signs - 24 hr 12/30/19 12/30/19 12/30/19 16:11 20:45 21:00 Temperature 36.8 C 37.4 C 36.8 C Heart Rate [ 94 106 H 107 H Brachial] Respiratory 18 18 18 Rate Blood Pressure 129/77 129/77 110/87 H [Right Brachial artery] O2 Saturation 98 98 97 12/30/19 12/31/19 12/31/19 23:47 03:44 07:30 Temperature 36.8 C 36.9 C 36.9 C Heart Rate [ 102 H 97 96 Brachial] Respiratory 20 18 18 Rate Blood Pressure 141/79 H 139/69 H 130/70 [Right Brachial artery] O2 Saturation 100 95 97 12/31/19 11:51 Temperature 36.7 C Heart Rate [ 95 Brachial] Respiratory 18 Rate Blood Pressure 124/70 [Right Brachial artery] O2 Saturation 93 Oxygen O2 Source Room air I&O (Last 24 Hrs): Intake and Output Totals x24h 12/29/19 12/30/19 12/31/19 23:59 23:59 23:59 Intake Total 2895 1840 1992 Output Total 1850 2600 1150 Balance 1045 -760 842 General: Alert, No acute distress HEENT: Atraumatic Neck: Supple Lymphatic: no adenopathy Neuro: Alert, Non Focal Cardiovascular: Regular rate, Normal S1, Normal S2 Respiratory: Chest non-tender, No respiratory distress, Breath sounds nml Abdomen: Normal bowel sounds, Soft, No tenderness Extremities: Normal pulses - Results Results: Laboratory Results WBC 8.0 x10^3/uL (4.8-10.8) 12/30/19 05:10 RBC 2.79 10^6/uL (4.20-5.40) L 12/30/19 05:10 Hgb 8.5 g/dL (12.0-16.0) L 12/31/19 06:10 Hct 25.4 % (37.0-47.0) L 12/31/19 06:10 MCV 88.5 fL (81.0-99.0) 12/30/19 05:10 MCH 29.0 pg (27.0-31.0) 12/30/19 05:10 MCHC 32.8 g/dL (32.0-36.0) 12/30/19 05:10 RDW 12.7 % (12.0-15.0) 12/30/19 05:10 Plt Count 221 10^3/uL (130-450) 12/30/19 05:10 MPV 9.8 fL (7.9-10.8) 12/30/19 05:10 Neut # (Auto) 5.6 10^3/uL (1.5-6.6) 12/30/19 05:10 Lymph # (Auto) 1.5 10^3/uL (1.5-3.5) 12/30/19 05:10 [place] # (Auto) 0.6 10^3/uL (0.0-1.0) 12/30/19 05:10 Eos # (Auto) 0.2 10^3/uL (0.0-0.7) 12/30/19 05:10 Baso # (Auto) 0.0 10^3/uL (0.0-0.1) 12/30/19 05:10 Absolute Nucleated RBC 0.00 x10^3/uL 12/30/19 05:10 Nucleated RBC % 0.0 /100WBC 12/30/19 05:10 PT 13.0 secs (9.9-12.6) H 12/25/19 19:45 INR 1.2 (0.8-1.2) 12/25/19 19:45 Bld Gas Analysis Time 1712 12/26/19 17:05 Sample Site RIGHT RADIAL 12/26/19 17:05 ABG pH 7.30 (7.35-7.45) L 12/26/19 17:05 ABG pCO2 38 mmHg (34-45) 12/26/19 17:05 ABG pO2 111 mmHg (80-100) H 12/26/19 17:05 ABG HCO3 18.0 mmol/L (22.0-26.0) L 12/26/19 17:05 ABG Total CO2 19.2 MMOL/L (21.0-29.0) L 12/26/19 17:05 ABG O2 Saturation 98 % (94-98) 12/26/19 17:05 ABG Base Excess -7.8 mmol/L (-2.0-3.0) L 12/26/19 17:05 Roe Test POSITIVE 12/26/19 17:05 VBG pH 7.463 (7.31-7.41) H 12/27/19 00:44 VBG pCO2 29.0 mmHg (41-51) L 12/27/19 00:44 VBG pO2 159.7 mmHg (25-47) H 12/27/19 00:44 VBG HCO3 20.3 mmol/L (23-28) L 12/27/19 00:44 VBG Total CO2 21.2 mmol/L (24-29) L 12/27/19 00:44 VBG O2 Saturation 98.6 % (60-80) H 12/27/19 00:44 VBG Base Excess -2.6 mmol/L (-2 - +2) L 12/27/19 00:44 O2 Delivery Device SIMPLE MASK 12/26/19 17:05 O2 Liters/Min 7.00 LPM 12/26/19 17:05 Sodium 134 mmol/L (135-145) L 12/31/19 06:14 Potassium 4.3 mmol/L (3.5-5.0) 12/31/19 06:14 Chloride 101 mmol/L (101-111) 12/31/19 06:14 Carbon Dioxide 24 mmol/L (21-32) 12/31/19 06:14 Anion Gap 9.0 (6-13) 12/31/19 06:14 BUN 18 mg/dL (6-20) 12/31/19 06:14 Creatinine 1.0 mg/dL (0.4-1.0) 12/31/19 06:14 Estimated GFR (MDRD) 53 (>89) L 12/31/19 06:14 Glucose 93 mg/dL (70-100) 12/31/19 06:14 POC Whole Bld Glucose 102 mg/dL (70 - 100) H 12/29/19 08:23 Calcium 8.8 mg/dL (8.5-10.3) 12/31/19 06:14 Phosphorus 2.9 mg/dL (2.5-4.6) 12/29/19 05:16 Magnesium 1.9 mg/dL (1.7-2.8) 12/29/19 05:16 Iron 7 ug/dL (28-170) L 12/28/19 04:55 TIBC 209 ug/dL (250-450) L 12/28/19 04:55 % Saturation 3 % (20-50) L 12/28/19 04:55 Transferrin 149 mg/dL (192-382) L 12/28/19 04:55 Total Bilirubin 1.0 mg/dL (0.2-1.0) 12/25/19 17:45 Direct Bilirubin 0.2 mg/dL (0.1-0.5) 12/25/19 17:45 AST 29 IU/L (10-42) 12/25/19 17:45 ALT 29 IU/L (10-60) 12/25/19 17:45 Alkaline Phosphatase 64 IU/L (42-121) 12/25/19 17:45 Troponin I High Sens 33.0 ng/L (2.3-14.8) H* 12/27/19 04:52 Total Protein 7.8 g/dL (6.7-8.2) 12/25/19 17:45 Albumin 4.0 g/dL (3.2-5.5) 12/25/19 17:45 Globulin 3.8 g/dL (2.1-4.2) 12/25/19 17:45 Vitamin B12 273 pg/mL (180-914) 12/28/19 04:55 Folate 4.12 ng/mL (5.90 - >24.8) L 12/28/19 04:55 TSH 7.33 uIU/mL (0.34-5.60) H 12/26/19 16:55 Free T4 1.33 ng/dL (0.58-1.64) 12/27/19 04:52 Urine Color YELLOW 12/25/19 17:52 Urine Clarity CLEAR (CLEAR) 12/25/19 17:52 Urine pH 7.5 PH (5.0-7.5) 12/25/19 17:52 Ur Specific Mayer 1.020 (1.002-1.030) 12/25/19 17:52 Urine Protein NEGATIVE mg/dL (NEGATIVE) 12/25/19 17:52 Urine Glucose (UA) NEGATIVE mg/dL (NEGATIVE) 12/25/19 17:52 Urine Ketones TRACE mg/dL (NEGATIVE) 12/25/19 17:52 Urine Occult Blood SMALL (NEGATIVE) H 12/25/19 17:52 Urine Nitrite NEGATIVE (NEGATIVE) 12/25/19 17:52 Urine Bilirubin NEGATIVE (NEGATIVE) 12/25/19 17:52 Urine Urobilinogen 0.2 (NORMAL) E.U./dL (NORMAL) 12/25/19 17:52 Ur Leukocyte Esterase NEGATIVE (NEGATIVE) 12/25/19 17:52 Urine RBC 0-5 /HPF (0-5) 12/25/19 17:52 Urine WBC 0-3 /HPF (0-5) 12/25/19 17:52 Ur Squamous Epith Cells RARE Squamous (<= Few) 12/25/19 17:52 Urine Bacteria Rare /HPF (None Seen) 12/25/19 17:52 Ur Microscopic Review INDICATED 12/25/19 17:52 Urine Culture Comments NOT INDICATED 12/25/19 17:52 Nasal Adenovirus (PCR) NOT DETECTED 12/25/19 19:05 Nasal B. parapertussis DNA (PCR) NOT DETECTED 12/25/19 19:05 Nasal Coronavir 229E PCR NOT DETECTED 12/25/19 19:05 Nasal Coronavir HKU1 PCR NOT DETECTED 12/25/19 19:05 Nasal Coronavir NL63 PCR NOT DETECTED 12/25/19 19:05 Nasal Coronavir OC43 PCR NOT DETECTED 12/25/19 19:05 Nasal Enterovir/Rhinovir PCR NOT DETECTED 12/25/19 19:05 Nasal Influenza B PCR NOT DETECTED 12/25/19 19:05 Nasal Influenza A PCR NOT DETECTED 12/25/19 19:05 Nasal Parainfluen 1 PCR NOT DETECTED 12/25/19 19:05 Nasal Parainfluen 2 PCR NOT DETECTED 12/25/19 19:05 Nasal Parainfluen 3 PCR NOT DETECTED 12/25/19 19:05 Nasal Parainfluen 4 PCR NOT DETECTED 12/25/19 19:05 Nasal RSV (PCR) NOT DETECTED 12/25/19 19:05 Nasal Screen MRSA (PCR) NEGATIVE (NEGATIVE) 12/26/19 17:45 Nasal B.pertussis DNA PCR NOT DETECTED 12/25/19 19:05 Nasal C.pneumoniae (PCR) NOT DETECTED 12/25/19 19:05 Sae Human Metapneumo PCR NOT DETECTED 12/25/19 19:05 Nasal M.pneumoniae (PCR) NOT DETECTED 12/25/19 19:05 Nasal SARS-CoV-2 (PCR) NOT DETECTED 12/25/19 19:05 Blood Type B POSITIVE 12/25/19 20:12 Blood Type Recheck B POSITIVE 12/25/19 05:17 Antibody Screen NEGATIVE 12/25/19 20:12 ABX Reporting Has patient been on IV antibiotics over the past 48 hours?: No Current Medications - Current Medications Current Medications: Active Medications Aspirin (Ecotrin) 81 mg PO BID [facility], [facility] Last Admin: 12/31/19 11:14 Dose: 81 mg Documented by: Bisacodyl (Dulcolax Supp) 10 mg MA Q12H PRN PRN Reason: Constipation Last Admin: 12/28/19 14:01 Dose: 10 mg Documented by: Calcium Citrate () 250 mg PO DAILY [facility], [facility]1983 Last Admin: 12/31/19 11:14 Dose: 250 mg Documented by: Cholecalciferol (Vitamin D3) 800 unit PO DAILY [facility] Last Admin: 12/31/19 11:14 Dose: 800 unit Documented by: Citalopram Hydrobromide (Celexa) 10 mg PO DAILY [facility] Last Admin: 12/31/19 11:14 Dose: 10 mg Documented by: Cyclobenzaprine HCl (Flexeril) 10 mg PO TID PRN PRN Reason: Spasms Last Admin: 12/30/19 20:46 Dose: 10 mg Documented by: [facility] Admin: 12/31/19 11:13 Dose: 324 mg Documented by: Folic Acid () 1 mg PO DAILY [facility] Last Admin: 12/31/19 11:15 Dose: 1 mg Documented by: Sodium Chloride (Normal Saline 0.9%) 1,000 mls @ 60 mls/hr IV .[id number] [facility], [facility] Last Admin: 12/31/19 11:12 Dose: 60 mls/hr Documented by: Ketorolac Tromethamine (Toradol Inj (15mg)) 15 mg IVP Q6HR PRN PRN Reason: PAIN Stop: 12/31/19 16:37 Last Admin: 12/30/19 10:38 Dose: 15 mg Documented by: Levothyroxine Sodium (Synthroid) 25 mcg PO QDAC [facility] Last Admin: 12/31/19 05:54 Dose: 25 mcg Documented by: Metoprolol Succinate (Toprol Xl) 25 mg PO BID [facility] Last Admin: 12/31/19 11:15 Dose: 25 mg Documented by: Ondansetron HCl (Zofran Inj) 4 mg IVP Q6HR PRN PRN Reason: Nausea / Vomiting Last Admin: 12/26/19 22:00 Dose: 4 mg Documented by: Phenol/Menthol (Chloraseptic) 2 sprays MM Q2HR PRN PRN Reason: Throat Pain Quetiapine Fumarate (Seroquel) 25 mg PO QPM [facility] Last Admin: 12/30/19 20:46 Dose: 25 mg Documented by: Sodium Chloride (Normal Saline Flush 0.9%) 10 ml IVP 0100,0900,1700 [facility] Last Admin: 12/31/19 11:15 Dose: 10 ml Documented by: Sodium Chloride (Normal Saline Flush 0.9%) 10 ml IVP PRN PRN PRN Reason: NEEDED PER PROVIDER ORDERS Last Admin: 12/26/19 22:08 Dose: 10 ml Documented by: Throat Lozenges (Cepacol) 1 lozenge MM Q2HR PRN PRN Reason: Throat pain Last Admin: 12/27/19 02:50 Dose: 1 lozenge Documented by: lisinopriL [Lisinopril] 5 mg PO DAILY 09/25/12 Citalopram [CeleXA] 10 mg PO DAILY 12/26/19 Triamterene/Hydrochlorothiazid [Triamterene-Hctz 37.5-25 mg Tb] 1 tab PO DAILY 12/26/19
[2019-12-31] MEDS: KETOROLAC 15 MG/ML VIAL IVP PRN (16:10)
[2019-12-31] MEDS: QUEtiapine 25 MG TABLET PO SCH (20:25)
[2020-01-01] MEDS: SODIUM CHLORIDE FLUSH 0.9% 10 ML SYRINGE IVP SCH ×3 (00:25→18:15)
[2020-01-01] MEDS: SODIUM CHLORIDE 0.9% 1,000 ML IV SCH (00:46)
[2020-01-01 05:35] LABS: BASOPHILS % (AUTO) 0.5 %; EOSINOPHILS # (AUTO) 0.3 10^3/uL (0.0-0.7); EOSINOPHILS % (AUTO) 5.8 %; HGB - HEMOGLOBIN 8.1 g/dL (12.0-16.0); LYMPHOCYTES # (AUTO) 1.7 10^3/uL (1.5-3.5); LYMPHOCYTES % (AUTO) 29.2 %; MEAN CORPUSCULAR HEMOGLOBIN 28.7 pg (27.0-31.0); MEAN CORPUSCULAR HGB CONC 32.5 g/dL (32.0-36.0); MEAN CORPUSCULAR VOLUME 88.3 fL (81.0-99.0); MEAN PLATELET VOLUME 9.3 fL (7.9-10.8); MONOCYTES # (AUTO) 0.6 10^3/uL (0.0-1.0); MONOCYTES % (AUTO) 10.6 %; NEUTROPHILS % (AUTO) 52.8 %; PLT - PLATELET COUNT 326 10^3/uL (130-450); RED BLOOD COUNT 2.82 10^6/uL (4.20-5.40); RED CELL DISTRIBUTION WIDTH 12.8 % (12.0-15.0); WHITE BLOOD COUNT 5.7 x10^3/uL (4.8-10.8)
[2020-01-01 05:44] LABS: CALCIUM 8.9 mg/dL (8.5-10.3); CREATININE 0.9 mg/dL (0.4-1.0)
[2020-01-01] MEDS: LEVOTHYROXINE 25 MCG TABLET PO SCH (06:20)
[2020-01-01] MEDS: polyethylene glycoL 3350 17 GM PACKET PO SCH ×3 (07:57→22:30)
[2020-01-01] MEDS: FERROUS GLUCONATE 324 MG TABLET PO SCH (08:01)
[2020-01-01] MEDS: CALCIUM CITRATE 250 MG TABLET PO SCH (08:01)
[2020-01-01] MEDS: METOPROLOL SUCCINATE 25 MG TABLET PO SCH ×2 (08:01→21:45)
[2020-01-01] MEDS: FOLIC ACID 1 MG TABLET PO SCH (08:02)
[2020-01-01] MEDS: CITALOPRAM 10 MG TABLET PO SCH (08:02)
[2020-01-01] MEDS: ASPIRIN EC 81 MG TABLET PO SCH ×2 (08:03→21:45)
[2020-01-01] MEDS: CHOLECALCIFEROL 400 UNIT TABLET PO SCH (08:03)
--- NOTE | 2020-01-01 09:23 | PROVIDER PROGRESS NOTE ---
Subjective - Prog Note Date Prog Note Date: 01/01/20 - Subjective Pt reports feeling: Improved (Pain well controlled. Ambulating with physical therapy. No numbness or tingling to the foot) Objective - Vital Signs/Intake & Output Reviewed Vital Signs: Yes Vital Signs: Vital Signs x48h Temp Pulse Resp BP Pulse Ox 01/01/20 08:17 36.7 C 103 H 18 132/71 H 98 01/01/20 04:49 36.4 C L 91 16 114/61 95 Intake & Output: Intake & Output 12/29/19 12/30/19 12/31/19 01/01/20 23:59 23:59 23:59 23:59 Intake Total 2895 1840 2112 1630 Output Total 1850 2600 1500 600 Balance 1045 -903 724 5994 - Objective General Appearance: positive: No acute distress, Alert Eyes Bilateral: positive: Normal inspection Respiratory: positive: No respiratory distress Cardiovascular: positive: Regular rate & rhythm, Other (Warm well perfused extremities) Back: positive: Other (Tender over the left sacroiliac joint and lower lumbar spine) Skin: positive: Other (Dressing intact.) Extremities: positive: Other (Hip range of motion well-tolerated) - Lab Results Fish Bones: 01/01/20 05:10 01/01/20 05:10 Other Labs: Lab Results x24hrs 01/01/20 01/01/20 Range/Units 05:10 05:10 WBC 5.7 (4.8-10.8) x10^3/uL RBC 2.82 L (4.20-5.40) 10^6/uL Hgb 8.1 L (12.0-16.0) g/dL Hct 24.9 L (37.0-47.0) % MCV 88.3 (81.0-99.0) fL MCH 28.7 (27.0-31.0) pg MCHC 32.5 (32.0-36.0) g/dL RDW 12.8 (12.0-15.0) % Plt Count 326 (130-450) 10^3/uL MPV 9.3 (7.9-10.8) fL Neut # (Auto) 3.0 (1.5-6.6) 10^3/uL Lymph # (Auto) 1.7 (1.5-3.5) 10^3/uL [place] # (Auto) 0.6 (0.0-1.0) 10^3/uL Eos # (Auto) 0.3 (0.0-0.7) 10^3/uL Baso # (Auto) 0.0 (0.0-0.1) 10^3/uL Absolute Nucleated RBC 0.00 x10^3/uL Nucleated RBC % 0.0 /100WBC Sodium 137 (135-145) mmol/L Potassium 4.3 (3.5-5.0) mmol/L Chloride 105 (101-111) mmol/L Carbon Dioxide 23 (21-32) mmol/L Anion Gap 9.0 (6-13) BUN 22 H (6-20) mg/dL Creatinine 0.9 (0.4-1.0) mg/dL Estimated GFR (MDRD) 60 L (>89) Glucose 106 H (70-100) mg/dL Calcium 8.9 (8.5-10.3) mg/dL Assessment/Plan - Problem List (1) Femoral neck fracture Impression: Stable postop day 6 following total hip arthroplasty for fracture. Mobilizing with physical therapy. Plan to [facility] to [facility] facility. No orthopedic issues at this time therefore Ortho is signing off. Please contact us with any questions. Follow-up in clinic at 6-weeks postop With radiographs of the left hip Qualifiers: Encounter type: subsequent encounter Fracture type: closed Laterality: left
[2020-01-01 15:17] LABS: C. PNEUMONIAE- RESP PCR PANEL NOT DETECTED
--- NOTE | 2020-01-01 15:57 | PROVIDER PROGRESS NOTE ---
Assessment/Plan - Problem List (1) Femoral neck fracture Qualifiers: Encounter type: subsequent encounter Fracture type: closed Laterality: left Assessment/Plan: 1125,This is day 6 posterior status of left total hip repair. Patient is doing well, continue PT and OT, continue consult with social work, patient is a pendin g for replacement 12/30 This is day 5 post status of left total hip repair. Improved, will continue physical therapist and occupational therapist. Plain to discharge to SNF tomorrow (2) Altered mental status resolved. Patient is alert, orientated today. (3) PSVT (paroxysmal supraventricular tachycardia) 12/31, Resolved, Follow-up with outpatient chair car attendant Patient is hemodynamic stable now. her heart rate is 95. Resolved. will continue metoprolol, continue telemetry (4) Anemia stable. postoperative anemia. 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 continue Metoprolol, advise pt followup with chair car attendant (6) Pulmonary HTN Assessment/Plan: pt's Echo done this admission reveals pulmonary HTN. The etiology could be obesity hypoventilation syndrome or sleep apnea, which need work-up as an outpatient. advise pt have out-pt sleep study. (7) Fall at home pt is negative for orthostatic hypotension, continue PT/OT, plan to be d/c to SNF (8) Hypothyroidism Assessment/Plan: Continue home Thyroid meds (9) Hx of essential hypertension stable, continue beta-hayley (10) Metabolic acidosis Assessment/Plan: Resolved (11) JOSR (acute kidney injury) Assessment/Plan: Resolved with iv hydration (12) Hypotension Assessment/Plan: Resolved after volume replacement in the ICU - Current Meds Current Meds: Current Medications Generic Name Dose Route Start Last Admin Trade Name Freq PRN Reason Stop Dose Admin Aspirin 81 mg 12/26/19 21:00 01/01/20 08:03 Ecotrin PO 81 mg BID [place] Administration Bisacodyl 10 mg 12/26/19 16:38 12/28/19 14:01 Dulcolax Supp MT 10 mg Q12H PRN Administration Constipation Calcium Citrate 250 mg 12/27/19 09:00 01/01/20 08:01 PO 250 mg DAILY [place] Administration Cholecalciferol 800 unit 12/27/19 09:00 01/01/20 08:03 Vitamin D3 PO 800 unit DAILY [place] Administration Citalopram Hydrobromide 10 mg 12/29/19 12:00 01/01/20 08:02 Celexa PO 10 mg DAILY [place] Administration Cyclobenzaprine HCl 10 mg 12/27/19 12:20 12/30/19 20:46 Flexeril PO 10 mg TID PRN Administration Spasms Ferrous Gluconate 324 mg 12/28/19 12:00 01/01/20 08:01 Fergon PO 324 mg DAILYWM [place] Administration Folic Acid 1 mg 12/28/19 12:00 01/01/20 08:02 PO 1 mg DAILY [place] Administration Sodium Chloride 1,000 mls @ 60 mls/hr 12/28/19 09:12 01/01/20 00:46 Normal Saline 0.9% IV 60 mls/hr .[id number] [place] Administration Levothyroxine Sodium 25 mcg 12/28/19 07:00 01/01/20 06:20 Synthroid PO 25 mcg QDAC [place] Administration Metoprolol Succinate 25 mg 12/29/19 21:00 01/01/20 08:01 Toprol Xl PO 25 mg BID [place] Administration Ondansetron HCl 4 mg 12/25/19 19:16 12/26/19 22:00 Zofran Inj IVP 4 mg Q6HR PRN Administration Nausea / Vomiting Polyethylene Glycol 17 gm 01/01/20 07:25 01/01/20 08:23 Miralax PO Not Given DAILY [place] Quetiapine Fumarate 25 mg 12/29/19 21:00 12/31/19 20:25 Seroquel PO 25 mg QPM [place] Administration Sodium Chloride 10 ml 12/26/19 17:00 01/01/20 08:10 Normal Saline Flush 0.9% IVP Not Given 0100,0900,1700 [place] Sodium Chloride 10 ml 12/26/19 16:56 12/26/19 22:08 Normal Saline Flush 0.9% IVP 10 ml PRN PRN Administration NEEDED PER PROVIDER ORDERS Throat Lozenges 1 lozenge 12/27/19 00:53 12/27/19 02:50 Cepacol MM 1 lozenge Q2HR PRN Administration Throat pain - Lab Result Fish Bone Diagrams: 01/01/20 05:10 01/01/20 05:10 - Additional Planning My Orders: My Active Orders 01/01/20 07:25 polyethylene glycoL 3350 [Miralax] 17 gm PO DAILY 01/02/20 05:00 BMP - BASIC METABOLIC PANEL [CHEM] DAILYLAB CBC - COMP BLD CT W/AUTO DIFF [HEME] DAILYLAB 01/03/20 05:00 BMP - BASIC METABOLIC PANEL [CHEM] DAILYLAB CBC - COMP BLD CT W/AUTO DIFF [HEME] DAILYLAB 01/04/20 05:00 BMP - BASIC METABOLIC PANEL [CHEM] DAILYLAB CBC - COMP BLD CT W/AUTO DIFF [HEME] DAILYLAB 01/05/20 05:00 BMP - BASIC METABOLIC PANEL [CHEM] DAILYLAB CBC - COMP BLD CT W/AUTO DIFF [HEME] DAILYLAB 01/06/20 05:00 BMP - BASIC METABOLIC PANEL [CHEM] DAILYLAB CBC - COMP BLD CT W/AUTO DIFF [HEME] DAILYLAB Subjective - Subjective Patient Reports: Feeling Better Nursing Reports: No Complaints Objective Vital Signs: Vital Signs - 24 hr 12/31/19 12/31/19 12/31/19 16:51 20:35 23:16 Temperature 36.9 C 35.6 C L Heart Rate [ 95 89 Brachial] Heart Rate [ 99 Sitting] Heart Rate [ 98 Supine] Respiratory 18 18 Rate Blood Pressure [Left Brachial artery] Blood Pressure 131/63 H 118/58 L [Right Brachial artery] Blood Pressure 119/93 H [Sitting] Blood Pressure 107/58 L [Supine] O2 Saturation 99 96 01/01/20 01/01/20 01/01/20 04:49 08:17 12:36 Temperature 36.4 C L 36.7 C 37 C Heart Rate [ 91 103 H 85 Brachial] Heart Rate [ Sitting] Heart Rate [ Supine] Respiratory 16 18 18 Rate Blood Pressure 122/61 [Left Brachial artery] Blood Pressure 114/61 132/71 H [Right Brachial artery] Blood Pressure [Sitting] Blood Pressure [Supine] O2 Saturation 95 98 100 Oxygen O2 Source Room air I&O (Last 24 Hrs): Intake and Output Totals x24h 12/30/19 12/31/19 01/01/20 23:59 23:59 23:59 Intake Total 1840 2112 1930 Output Total 2600 1500 1850 Balance -760 612 80 General: Alert, Cooperative, No acute distress HEENT: Atraumatic Neck: Supple Lymphatic: no adenopathy Neuro: Alert, Non Focal Cardiovascular: Regular rate, Normal S1, Normal S2 Respiratory: Chest non-tender, No respiratory distress Abdomen: Normal bowel sounds, Soft Extremities: Normal pulses - Results Results: Laboratory Results WBC 5.7 x10^3/uL (4.8-10.8) 01/01/20 05:10 RBC 2.82 10^6/uL (4.20-5.40) L 01/01/20 05:10 Hgb 8.1 g/dL (12.0-16.0) L 01/01/20 05:10 Hct 24.9 % (37.0-47.0) L 01/01/20 05:10 MCV 88.3 fL (81.0-99.0) 01/01/20 05:10 MCH 28.7 pg (27.0-31.0) 01/01/20 05:10 MCHC 32.5 g/dL (32.0-36.0) 01/01/20 05:10 RDW 12.8 % (12.0-15.0) 01/01/20 05:10 Plt Count 326 10^3/uL (130-450) 01/01/20 05:10 MPV 9.3 fL (7.9-10.8) 01/01/20 05:10 Neut # (Auto) 3.0 10^3/uL (1.5-6.6) 01/01/20 05:10 Lymph # (Auto) 1.7 10^3/uL (1.5-3.5) 01/01/20 05:10 [place] # (Auto) 0.6 10^3/uL (0.0-1.0) 01/01/20 05:10 Eos # (Auto) 0.3 10^3/uL (0.0-0.7) 01/01/20 05:10 Baso # (Auto) 0.0 10^3/uL (0.0-0.1) 01/01/20 05:10 Absolute Nucleated RBC 0.00 x10^3/uL 01/01/20 05:10 Nucleated RBC % 0.0 /100WBC 01/01/20 05:10 PT 13.0 secs (9.9-12.6) H 12/25/19 19:45 INR 1.2 (0.8-1.2) 12/25/19 19:45 Bld Gas Analysis Time 1712 12/26/19 17:05 Sample Site RIGHT RADIAL 12/26/19 17:05 ABG pH 7.30 (7.35-7.45) L 12/26/19 17:05 ABG pCO2 38 mmHg (34-45) 12/26/19 17:05 ABG pO2 111 mmHg (80-100) H 12/26/19 17:05 ABG HCO3 18.0 mmol/L (22.0-26.0) L 12/26/19 17:05 ABG Total CO2 19.2 MMOL/L (21.0-29.0) L 12/26/19 17:05 ABG O2 Saturation 98 % (94-98) 12/26/19 17:05 ABG Base Excess -7.8 mmol/L (-2.0-3.0) L 12/26/19 17:05 Roe Test POSITIVE 12/26/19 17:05 VBG pH 7.463 (7.31-7.41) H 12/27/19 00:44 VBG pCO2 29.0 mmHg (41-51) L 12/27/19 00:44 VBG pO2 159.7 mmHg (25-47) H 12/27/19 00:44 VBG HCO3 20.3 mmol/L (23-28) L 12/27/19 00:44 VBG Total CO2 21.2 mmol/L (24-29) L 12/27/19 00:44 VBG O2 Saturation 98.6 % (60-80) H 12/27/19 00:44 VBG Base Excess -2.6 mmol/L (-2 - +2) L 12/27/19 00:44 O2 Delivery Device SIMPLE MASK 12/26/19 17:05 O2 Liters/Min 7.00 LPM 12/26/19 17:05 Sodium 137 mmol/L (135-145) 01/01/20 05:10 Potassium 4.3 mmol/L (3.5-5.0) 01/01/20 05:10 Chloride 105 mmol/L (101-111) 01/01/20 05:10 Carbon Dioxide 23 mmol/L (21-32) 01/01/20 05:10 Anion Gap 9.0 (6-13) 01/01/20 05:10 BUN 22 mg/dL (6-20) H 01/01/20 05:10 Creatinine 0.9 mg/dL (0.4-1.0) 01/01/20 05:10 Estimated GFR (MDRD) 60 (>89) L 01/01/20 05:10 Glucose 106 mg/dL (70-100) H 01/01/20 05:10 POC Whole Bld Glucose 102 mg/dL (70 - 100) H 12/29/19 08:23 Calcium 8.9 mg/dL (8.5-10.3) 01/01/20 05:10 Phosphorus 2.9 mg/dL (2.5-4.6) 12/29/19 05:16 Magnesium 1.9 mg/dL (1.7-2.8) 12/29/19 05:16 Iron 7 ug/dL (28-170) L 12/28/19 04:55 TIBC 209 ug/dL (250-450) L 12/28/19 04:55 % Saturation 3 % (20-50) L 12/28/19 04:55 Transferrin 149 mg/dL (192-382) L 12/28/19 04:55 Total Bilirubin 1.0 mg/dL (0.2-1.0) 12/25/19 17:45 Direct Bilirubin 0.2 mg/dL (0.1-0.5) 12/25/19 17:45 AST 29 IU/L (10-42) 12/25/19 17:45 ALT 29 IU/L (10-60) 12/25/19 17:45 Alkaline Phosphatase 64 IU/L (42-121) 12/25/19 17:45 Troponin I High Sens 33.0 ng/L (2.3-14.8) H* 12/27/19 04:52 Total Protein 7.8 g/dL (6.7-8.2) 12/25/19 17:45 Albumin 4.0 g/dL (3.2-5.5) 12/25/19 17:45 Globulin 3.8 g/dL (2.1-4.2) 12/25/19 17:45 Vitamin B12 273 pg/mL (180-914) 12/28/19 04:55 Folate 4.12 ng/mL (5.90 - >24.8) L 12/28/19 04:55 TSH 7.33 uIU/mL (0.34-5.60) H 12/26/19 16:55 Free T4 1.33 ng/dL (0.58-1.64) 12/27/19 04:52 Urine Color YELLOW 12/25/19 17:52 Urine Clarity CLEAR (CLEAR) 12/25/19 17:52 Urine pH 7.5 PH (5.0-7.5) 12/25/19 17:52 Ur Specific [place] 1.020 (1.002-1.030) 12/25/19 17:52 Urine Protein NEGATIVE mg/dL (NEGATIVE) 12/25/19 17:52 Urine Glucose (UA) NEGATIVE mg/dL (NEGATIVE) 12/25/19 17:52 Urine Ketones TRACE mg/dL (NEGATIVE) 12/25/19 17:52 Urine Occult Blood SMALL (NEGATIVE) H 12/25/19 17:52 Urine Nitrite NEGATIVE (NEGATIVE) 12/25/19 17:52 Urine Bilirubin NEGATIVE (NEGATIVE) 12/25/19 17:52 Urine Urobilinogen 0.2 (NORMAL) E.U./dL (NORMAL) 12/25/19 17:52 Ur Leukocyte Esterase NEGATIVE (NEGATIVE) 12/25/19 17:52 Urine RBC 0-5 /HPF (0-5) 12/25/19 17:52 Urine WBC 0-3 /HPF (0-5) 12/25/19 17:52 Ur Squamous Epith Cells RARE Squamous (<= Few) 12/25/19 17:52 Urine Bacteria Rare /HPF (None Seen) 12/25/19 17:52 Ur Microscopic Review INDICATED 12/25/19 17:52 Urine Culture Comments NOT INDICATED 12/25/19 17:52 Nasal Adenovirus (PCR) NOT DETECTED 01/01/20 13:56 Nasal B. parapertussis DNA (PCR) NOT DETECTED 01/01/20 13:56 Nasal Coronavir 229E PCR NOT DETECTED 01/01/20 13:56 Nasal Coronavir HKU1 PCR NOT DETECTED 01/01/20 13:56 Nasal Coronavir NL63 PCR NOT DETECTED 01/01/20 13:56 Nasal Coronavir OC43 PCR NOT DETECTED 01/01/20 13:56 Nasal Enterovir/Rhinovir PCR NOT DETECTED 01/01/20 13:56 Nasal Influenza B PCR NOT DETECTED 01/01/20 13:56 Nasal Influenza A PCR NOT DETECTED 01/01/20 13:56 Nasal Parainfluen 1 PCR NOT DETECTED 01/01/20 13:56 Nasal Parainfluen 2 PCR NOT DETECTED 01/01/20 13:56 Nasal Parainfluen 3 PCR NOT DETECTED 01/01/20 13:56 Nasal Parainfluen 4 PCR NOT DETECTED 01/01/20 13:56 Nasal RSV (PCR) NOT DETECTED 01/01/20 13:56 Nasal Screen MRSA (PCR) NEGATIVE (NEGATIVE) 12/26/19 17:45 Nasal B.pertussis DNA PCR NOT DETECTED 01/01/20 13:56 Nasal C.pneumoniae (PCR) NOT DETECTED 01/01/20 13:56 Sae Human Metapneumo PCR NOT DETECTED 01/01/20 13:56 Nasal M.pneumoniae (PCR) NOT DETECTED 01/01/20 13:56 Nasal SARS-CoV-2 (PCR) NOT DETECTED 01/01/20 13:56 Blood Type B POSITIVE 12/25/19 20:12 Blood Type Recheck B POSITIVE 12/25/19 05:17 Antibody Screen NEGATIVE 12/25/19 20:12 ABX Reporting Has patient been on IV antibiotics over the past 48 hours?: No Current Medications - Current Medications Current Medications: Active Medications Aspirin (Ecotrin) 81 mg PO BID [facility] Last Admin: 01/01/20 08:03 Dose: 81 mg Documented by: Bisacodyl (Dulcolax Supp) 10 mg MT Q12H PRN PRN Reason: Constipation Last Admin: 12/28/19 14:01 Dose: 10 mg Documented by: Calcium Citrate () 250 mg PO DAILY [facility] Last Admin: 01/01/20 08:01 Dose: 250 mg Documented by: Cholecalciferol (Vitamin D3) 800 unit PO DAILY [facility] Last Admin: 01/01/20 08:03 Dose: 800 unit Documented by: Citalopram Hydrobromide (Celexa) 10 mg PO DAILY [facility] Last Admin: 01/01/20 08:02 Dose: 10 mg Documented by: Cyclobenzaprine HCl (Flexeril) 10 mg PO TID PRN PRN Reason: Spasms Last Admin: 11/23/20 20:46 Dose: 10 mg Documented by: Ferrous Gluconate (Fergon) 324 mg PO DAILYWM [facility] Last Admin: 01/01/20 08:01 Dose: 324 mg Documented by: Folic Acid () 1 mg PO DAILY [facility] Last Admin: 01/01/20 08:02 Dose: 1 mg Documented by: Sodium Chloride (Normal Saline 0.9%) 1,000 mls @ 60 mls/hr IV .[id number] [facility] Last Admin: 01/01/20 00:46 Dose: 60 mls/hr Documented by: Levothyroxine Sodium (Synthroid) 25 mcg PO QDAC [facility] Last Admin: 01/01/20 06:20 Dose: 25 mcg Documented by: Metoprolol Succinate (Toprol Xl) 25 mg PO BID [facility] Last Admin: 01/01/20 08:01 Dose: 25 mg Documented by: Ondansetron HCl (Zofran Inj) 4 mg IVP Q6HR PRN PRN Reason: Nausea / Vomiting Last Admin: 12/26/19 22:00 Dose: 4 mg Documented by: Phenol/Menthol (Chloraseptic) 2 sprays MM Q2HR PRN PRN Reason: Throat Pain Polyethylene Glycol (Miralax) 17 gm PO DAILY [facility] Last Admin: 01/01/20 08:23 Dose: Not Given Documented by: Quetiapine Fumarate (Seroquel) 25 mg PO QPM [facility] Last Admin: 12/31/19 20:25 Dose: 25 mg Documented by: Sodium Chloride (Normal Saline Flush 0.9%) 10 ml IVP 0100,0900,1700 [facility] Last Admin: 01/01/20 08:10 Dose: Not Given Documented by: Sodium Chloride (Normal Saline Flush 0.9%) 10 ml IVP PRN PRN PRN Reason: NEEDED PER PROVIDER ORDERS Last Admin: 12/26/19 22:08 Dose: 10 ml Documented by: Throat Lozenges (Cepacol) 1 lozenge MM Q2HR PRN PRN Reason: Throat pain Last Admin: 12/27/19 02:50 Dose: 1 lozenge Documented by: lisinopriL [Lisinopril] 5 mg PO DAILY 09/25/12 Citalopram [CeleXA] 10 mg PO DAILY 12/26/19 Triamterene/Hydrochlorothiazid [Triamterene-Hctz 37.5-25 mg Tb] 1 tab PO DAILY 12/26/19
[2020-01-01] MEDS: QUEtiapine 25 MG TABLET PO SCH (21:45)
[2020-01-02] MEDS: SODIUM CHLORIDE FLUSH 0.9% 10 ML SYRINGE IVP SCH ×3 (00:56→16:28)
[2020-01-02] MEDS: LEVOTHYROXINE 25 MCG TABLET PO SCH (05:58)
[2020-01-02] MEDS: BENZOCAINE/MENTHOL LOZENGE MM PRN (05:59)
[2020-01-02 06:39] LABS: BASOPHILS % (AUTO) 0.5 %; EOSINOPHILS # (AUTO) 0.2 10^3/uL (0.0-0.7); EOSINOPHILS % (AUTO) 3.3 %; HGB - HEMOGLOBIN 8.6 g/dL (12.0-16.0); LYMPHOCYTES # (AUTO) 1.4 10^3/uL (1.5-3.5); LYMPHOCYTES % (AUTO) 22.3 %; MEAN CORPUSCULAR HEMOGLOBIN 28.8 pg (27.0-31.0); MEAN CORPUSCULAR HGB CONC 32.3 g/dL (32.0-36.0); MEAN PLATELET VOLUME 9.7 fL (7.9-10.8); MONOCYTES # (AUTO) 0.6 10^3/uL (0.0-1.0); MONOCYTES % (AUTO) 9.1 %; NEUTROPHILS # (AUTO) 3.8 10^3/uL (1.5-6.6); NEUTROPHILS % (AUTO) 63.5 %; PLT - PLATELET COUNT 406 10^3/uL (130-450); RED BLOOD COUNT 2.99 10^6/uL (4.20-5.40); RED CELL DISTRIBUTION WIDTH 12.9 % (12.0-15.0); WHITE BLOOD COUNT 6.1 x10^3/uL (4.8-10.8)
[2020-01-02 06:50] LABS: CALCIUM 8.9 mg/dL (8.5-10.3); CREATININE 0.8 mg/dL (0.4-1.0)
[2020-01-02] MEDS: SODIUM CHLORIDE 0.9% 1,000 ML IV SCH (08:01)
[2020-01-02] MEDS: polyethylene glycoL 3350 17 GM PACKET PO SCH ×2 (08:02→08:11)
[2020-01-02] MEDS: CALCIUM CITRATE 250 MG TABLET PO SCH (08:05)
[2020-01-02] MEDS: FERROUS GLUCONATE 324 MG TABLET PO SCH (08:05)
[2020-01-02] MEDS: FOLIC ACID 1 MG TABLET PO SCH (08:06)
[2020-01-02] MEDS: DOCUSATE SODIUM 250 MG CAPSULE PO SCH (08:06)
[2020-01-02] MEDS: SENNA 8.6 MG TABLET PO SCH (08:06)
[2020-01-02] MEDS: ASPIRIN EC 81 MG TABLET PO SCH ×2 (08:07→20:56)
[2020-01-02] MEDS: CITALOPRAM 10 MG TABLET PO SCH (08:07)
[2020-01-02] MEDS: CHOLECALCIFEROL 400 UNIT TABLET PO SCH (08:07)
[2020-01-02] MEDS: METOPROLOL SUCCINATE 25 MG TABLET PO SCH ×2 (08:10→20:55)
[2020-01-02] MEDS: ACETAMINOPHEN 325 MG TABLET PO PRN (12:45)
--- NOTE | 2020-01-02 13:17 | PROVIDER PROGRESS NOTE ---
Assessment/Plan - Problem List (1) Femoral neck fracture Qualifiers: Encounter type: subsequent encounter Fracture type: closed Laterality: left Assessment/Plan: 01/01, continue PT/OT, plan pt to be d/c on tomorrow. pt had another Covid 19 test on today. 1125,This is day 6 posterior status of left total hip repair. Patient is doing well, continue PT and OT, continue consult with social work, patient is a pending for replacement 12/30 This is day 5 post status of left total hip repair. Improved, will continue physical therapist and occupational therapist. Plain to discharge to SNF tomorrow (2) Altered mental status resolved. Patient is alert, orientated today. (3) PSVT (paroxysmal supraventricular tachycardia) 12/31, Resolved, Follow-up with outpatient meat hostess Patient is hemodynamic stable now. her heart rate is 95. Resolved. will continue metoprolol, continue telemetry (4) Anemia stable. postoperative anemia. 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 continue Metoprolol, advise pt followup with meat hostess (6) Pulmonary HTN Assessment/Plan: pt's Echo done this admission reveals pulmonary HTN. The etiology could be obesity hypoventilation syndrome or sleep apnea, which need work-up as an outpatient. advise pt have out-pt sleep study. (7) Fall at home pt is negative for orthostatic hypotension, continue PT/OT, plan to be d/c to SNF (8) Hypothyroidism Assessment/Plan: Continue home Thyroid meds (9) Hx of essential hypertension stable, continue beta-hayley (10) Metabolic acidosis Assessment/Plan: Resolved (11) JOSR (acute kidney injury) Assessment/Plan: Resolved with iv hydration (12) Hypotension Assessment/Plan: Resolved after volume replacement in the ICU - Current Meds Current Meds: Current Medications Generic Name Dose Route Start Last Admin Trade Name Freq PRN Reason Stop Dose Admin Acetaminophen 650 mg 01/02/20 10:21 01/02/20 12:45 Tylenol PO 650 mg Q4HR PRN Administration Pain or Fever > 38C (100.4F) Aspirin 81 mg 12/26/19 21:00 01/02/20 08:07 Ecotrin PO 81 mg BID [place] Administration Bisacodyl 10 mg 12/26/19 16:38 12/28/19 14:01 Dulcolax Supp [place] 10 mg Q12H PRN Administration Constipation Calcium Citrate 250 mg 12/27/19 09:00 01/02/20 08:05 PO 250 mg DAILY [place] Administration Cholecalciferol 800 unit 12/27/19 09:00 01/02/20 08:07 Vitamin D3 PO 800 unit DAILY [facility] Administration Citalopram Hydrobromide 10 mg 12/29/19 12:00 01/02/20 08:07 Celexa PO 10 mg DAILY [place] Administration Cyclobenzaprine HCl 10 mg 12/27/19 12:20 12/30/19 20:46 Flexeril PO 10 mg TID PRN Administration Spasms Docusate Sodium 250 - 500 mg 01/02/20 09:00 01/02/20 08:06 Colace 250mg Capsule PO 250 mg DAILY [place] Administration Ferrous Gluconate 324 mg 12/28/19 12:00 01/02/20 08:05 Fergon PO 324 mg DAILYWM [place] Administration Folic Acid 1 mg 12/28/19 12:00 01/02/20 08:06 PO 1 mg DAILY [place] Administration Sodium Chloride 1,000 mls @ 60 mls/hr 12/28/19 09:12 01/02/20 08:01 Normal Saline 0.9% IV 60 mls/hr .[id number] [place] Administration Levothyroxine Sodium 25 mcg 12/28/19 07:00 01/02/20 05:58 Synthroid PO 25 mcg QDAC [place] Administration Metoprolol Succinate 25 mg 12/29/19 21:00 01/02/20 08:10 Toprol Xl PO 25 mg BID [place] Administration Ondansetron HCl 4 mg 12/25/19 19:16 12/26/19 22:00 Zofran Inj IVP 4 mg Q6HR PRN Administration Nausea / Vomiting Polyethylene Glycol 17 gm 01/01/20 07:25 01/02/20 08:02 Miralax PO 17 gm DAILY [place] Administration Quetiapine Fumarate 25 mg 12/29/19 21:00 01/01/20 21:45 Seroquel PO 25 mg QPM [place] Administration Senna 8.6 - 17.2 mg 01/02/20 09:00 01/02/20 08:06 Senokot PO 8.6 mg DAILY [place] Administration Sodium Chloride 10 ml 12/26/19 17:00 01/02/20 08:11 Normal Saline Flush 0.9% IVP Not Given 0100,0900,1700 [place] Sodium Chloride 10 ml 12/26/19 16:56 12/26/19 22:08 Normal Saline Flush 0.9% IVP 10 ml PRN PRN Administration NEEDED PER PROVIDER ORDERS Throat Lozenges 1 lozenge 12/27/19 00:53 01/02/20 05:59 Cepacol MM 1 lozenge Q2HR PRN Administration Throat pain - Lab Result Fish Bone Diagrams: 01/02/20 05:51 01/02/20 05:51 - Additional Planning My Orders: My Active Orders 01/02/20 09:00 Docusate Sodium 250Mg Capsule [Colace 250Mg Capsule] 250 - 500 mg PO DAILY Senna [Senokot] 8.6 - 17.2 mg PO DAILY 01/02/20 10:21 Acetaminophen [Tylenol] 650 mg PO Q4HR PRN 01/02/20 12:59 RESPIRATORY PCR PANEL Urgent 01/03/20 05:00 BMP - BASIC METABOLIC PANEL [CHEM] DAILYLAB CBC - COMP BLD CT W/AUTO DIFF [HEME] DAILYLAB 01/04/20 05:00 BMP - BASIC METABOLIC PANEL [CHEM] DAILYLAB CBC - COMP BLD CT W/AUTO DIFF [HEME] DAILYLAB 01/05/20 05:00 BMP - BASIC METABOLIC PANEL [CHEM] DAILYLAB CBC - COMP BLD CT W/AUTO DIFF [HEME] DAILYLAB 01/06/20 05:00 BMP - BASIC METABOLIC PANEL [CHEM] DAILYLAB CBC - COMP BLD CT W/AUTO DIFF [HEME] DAILYLAB Subjective - Subjective Patient Reports: Feeling Better Nursing Reports: No Complaints Objective Vital Signs: Vital Signs - 24 hr 01/01/20 01/01/20 01/02/20 15:54 21:00 00:51 Temperature 36.8 C 37.2 C 36.9 C Heart Rate [ 94 108 H 94 Brachial] Respiratory 18 22 17 Rate Blood Pressure 119/64 149/99 H 122/66 [Right Brachial artery] O2 Saturation 98 92 95 01/02/20 01/02/20 06:00 08:32 Temperature 36.8 C 36.7 C Heart Rate [ 96 96 Brachial] Respiratory 17 18 Rate Blood Pressure 133/68 H 128/67 [Right Brachial artery] O2 Saturation 94 97 Oxygen O2 Source Room air I&O (Last 24 Hrs): Intake and Output Totals x24h 12/31/19 01/01/20 01/02/20 23:59 23:59 23:59 Intake Total 2112 1930 823 Output Total 1500 2200 1450 Balance 612 -716 -527 General: Alert, No acute distress HEENT: Atraumatic Neck: Supple Lymphatic: no adenopathy Neuro: Alert, Non Focal Cardiovascular: Regular rate, Normal S1, Normal S2 Respiratory: Chest non-tender, No respiratory distress Abdomen: Normal bowel sounds, Soft - Results Results: Laboratory Results WBC 6.1 x10^3/uL (4.8-10.8) 01/02/20 05:51 RBC 2.99 10^6/uL (4.20-5.40) L 01/02/20 05:51 Hgb 8.6 g/dL (12.0-16.0) L 01/02/20 05:51 Hct 26.6 % (37.0-47.0) L 01/02/20 05:51 MCV 89.0 fL (81.0-99.0) 01/02/20 05:51 MCH 28.8 pg (27.0-31.0) 01/02/20 05:51 MCHC 32.3 g/dL (32.0-36.0) 01/02/20 05:51 RDW 12.9 % (12.0-15.0) 01/02/20 05:51 Plt Count 406 10^3/uL (130-450) 01/02/20 05:51 MPV 9.7 fL (7.9-10.8) 01/02/20 05:51 Neut # (Auto) 3.8 10^3/uL (1.5-6.6) 01/02/20 05:51 Lymph # (Auto) 1.4 10^3/uL (1.5-3.5) L 01/02/20 05:51 [place] # (Auto) 0.6 10^3/uL (0.0-1.0) 01/02/20 05:51 Eos # (Auto) 0.2 10^3/uL (0.0-0.7) 01/02/20 05:51 Baso # (Auto) 0.0 10^3/uL (0.0-0.1) 01/02/20 05:51 Absolute Nucleated RBC 0.00 x10^3/uL 01/02/20 05:51 Nucleated RBC % 0.0 /100WBC 01/02/20 05:51 PT 13.0 secs (9.9-12.6) H 12/25/19 19:45 INR 1.2 (0.8-1.2) 12/25/19 19:45 Bld Gas Analysis Time 1712 12/26/19 17:05 Sample Site RIGHT RADIAL 12/26/19 17:05 ABG pH 7.30 (7.35-7.45) L 12/26/19 17:05 ABG pCO2 38 mmHg (34-45) 12/26/19 17:05 ABG pO2 111 mmHg (80-100) H 12/26/19 17:05 ABG HCO3 18.0 mmol/L (22.0-26.0) L 12/26/19 17:05 ABG Total CO2 19.2 MMOL/L (21.0-29.0) L 12/26/19 17:05 ABG O2 Saturation 98 % (94-98) 12/26/19 17:05 ABG Base Excess -7.8 mmol/L (-2.0-3.0) L 12/26/19 17:05 Roe Test POSITIVE 12/26/19 17:05 VBG pH 7.463 (7.31-7.41) H 12/27/19 00:44 VBG pCO2 29.0 mmHg (41-51) L 12/27/19 00:44 VBG pO2 159.7 mmHg (25-47) H 12/27/19 00:44 VBG HCO3 20.3 mmol/L (23-28) L 12/27/19 00:44 VBG Total CO2 21.2 mmol/L (24-29) L 12/27/19 00:44 VBG O2 Saturation 98.6 % (60-80) H 12/27/19 00:44 VBG Base Excess -2.6 mmol/L (-2 - +2) L 11/20/20 00:44 O2 Delivery Device SIMPLE MASK 12/26/19 17:05 O2 Liters/Min 7.00 LPM 12/26/19 17:05 Sodium 135 mmol/L (135-145) 01/02/20 05:51 Potassium 3.9 mmol/L (3.5-5.0) 01/02/20 05:51 Chloride 103 mmol/L (101-111) 01/02/20 05:51 Carbon Dioxide 22 mmol/L (21-32) 01/02/20 05:51 Anion Gap 10.0 (6-13) 01/02/20 05:51 BUN 16 mg/dL (6-20) 01/02/20 05:51 Creatinine 0.8 mg/dL (0.4-1.0) 01/02/20 05:51 Estimated GFR (MDRD) 68 (>89) L 01/02/20 05:51 Glucose 104 mg/dL (70-100) H 01/02/20 05:51 POC Whole Bld Glucose 102 mg/dL (70 - 100) H 12/29/19 08:23 Calcium 8.9 mg/dL (8.5-10.3) 01/02/20 05:51 Phosphorus 2.9 mg/dL (2.5-4.6) 12/29/19 05:16 Magnesium 1.9 mg/dL (1.7-2.8) 12/29/19 05:16 Iron 7 ug/dL (28-170) L 12/28/19 04:55 TIBC 209 ug/dL (250-450) L 12/28/19 04:55 % Saturation 3 % (20-50) L 12/28/19 04:55 Transferrin 149 mg/dL (192-382) L 12/28/19 04:55 Total Bilirubin 1.0 mg/dL (0.2-1.0) 12/25/19 17:45 Direct Bilirubin 0.2 mg/dL (0.1-0.5) 12/25/19 17:45 AST 29 IU/L (10-42) 12/25/19 17:45 ALT 29 IU/L (10-60) 12/25/19 17:45 Alkaline Phosphatase 64 IU/L (42-121) 12/25/19 17:45 Troponin I High Sens 33.0 ng/L (2.3-14.8) H* 12/27/19 04:52 Total Protein 7.8 g/dL (6.7-8.2) 12/25/19 17:45 Albumin 4.0 g/dL (3.2-5.5) 12/25/19 17:45 Globulin 3.8 g/dL (2.1-4.2) 12/25/19 17:45 Vitamin B12 273 pg/mL (180-914) 12/28/19 04:55 Folate 4.12 ng/mL (5.90 - >24.8) L 12/28/19 04:55 TSH 7.33 uIU/mL (0.34-5.60) H 12/26/19 16:55 Free T4 1.33 ng/dL (0.58-1.64) 12/27/19 04:52 Urine Color YELLOW 12/25/19 17:52 Urine Clarity CLEAR (CLEAR) 12/25/19 17:52 Urine pH 7.5 PH (5.0-7.5) 12/25/19 17:52 Ur Specific [place] 1.020 (1.002-1.030) 12/25/19 17:52 Urine Protein NEGATIVE mg/dL (NEGATIVE) 12/25/19 17:52 Urine Glucose (UA) NEGATIVE mg/dL (NEGATIVE) 12/25/19 17:52 Urine Ketones TRACE mg/dL (NEGATIVE) 12/25/19 17:52 Urine Occult Blood SMALL (NEGATIVE) H 12/25/19 17:52 Urine Nitrite NEGATIVE (NEGATIVE) 12/25/19 17:52 Urine Bilirubin NEGATIVE (NEGATIVE) 12/25/19 17:52 Urine Urobilinogen 0.2 (NORMAL) E.U./dL (NORMAL) 12/25/19 17:52 Ur Leukocyte Esterase NEGATIVE (NEGATIVE) 12/25/19 17:52 Urine RBC 0-5 /HPF (0-5) 12/25/19 17:52 Urine WBC 0-3 /HPF (0-5) 12/25/19 17:52 Ur Squamous Epith Cells RARE Squamous (<= Few) 12/25/19 17:52 Urine Bacteria Rare /HPF (None Seen) 12/25/19 17:52 Ur Microscopic Review INDICATED 12/25/19 17:52 Urine Culture Comments NOT INDICATED 12/25/19 17:52 Nasal Adenovirus (PCR) NOT DETECTED 01/01/20 13:56 Nasal B. parapertussis DNA (PCR) NOT DETECTED 01/01/20 13:56 Nasal Coronavir 229E PCR NOT DETECTED 01/01/20 13:56 Nasal Coronavir HKU1 PCR NOT DETECTED 01/01/20 13:56 Nasal Coronavir NL63 PCR NOT DETECTED 01/01/20 13:56 Nasal Coronavir OC43 PCR NOT DETECTED 01/01/20 13:56 Nasal Enterovir/Rhinovir PCR NOT DETECTED 01/01/20 13:56 Nasal Influenza B PCR NOT DETECTED 01/01/20 13:56 Nasal Influenza A PCR NOT DETECTED 01/01/20 13:56 Nasal Parainfluen 1 PCR NOT DETECTED 01/01/20 13:56 Nasal Parainfluen 2 PCR NOT DETECTED 01/01/20 13:56 Nasal Parainfluen 3 PCR NOT DETECTED 01/01/20 13:56 Nasal Parainfluen 4 PCR NOT DETECTED 01/01/20 13:56 Nasal RSV (PCR) NOT DETECTED 01/01/20 13:56 Nasal Screen MRSA (PCR) NEGATIVE (NEGATIVE) 12/26/19 17:45 Nasal B.pertussis DNA PCR NOT DETECTED 01/01/20 13:56 Nasal C.pneumoniae (PCR) NOT DETECTED 01/01/20 13:56 Sae Human Metapneumo PCR NOT DETECTED 01/01/20 13:56 Nasal M.pneumoniae (PCR) NOT DETECTED 01/01/20 13:56 Nasal SARS-CoV-2 (PCR) NOT DETECTED 01/01/20 13:56 Blood Type B POSITIVE 12/25/19 20:12 Blood Type Recheck B POSITIVE 12/25/19 05:17 Antibody Screen NEGATIVE 12/25/19 20:12 ABX Reporting Has patient been on IV antibiotics over the past 48 hours?: No Current Medications - Current Medications Current Medications: Active Medications Acetaminophen (Tylenol) 650 mg PO Q4HR PRN PRN Reason: Pain or Fever > 38C (100.4F) Last Admin: 01/02/20 12:45 Dose: 650 mg Documented by: Aspirin (Ecotrin) 81 mg PO BID [place] Last Admin: 01/02/20 08:07 Dose: 81 mg Documented by: Bisacodyl (Dulcolax Supp) 10 mg [place] Q12H PRN PRN Reason: Constipation Last Admin: 12/28/19 14:01 Dose: 10 mg Documented by: Calcium Citrate () 250 mg PO DAILY [facility] Last Admin: 01/02/20 08:05 Dose: 250 mg Documented by: Cholecalciferol (Vitamin D3) 800 unit PO DAILY [facility] Last Admin: 01/02/20 08:07 Dose: 800 unit Documented by: Citalopram Hydrobromide (Celexa) 10 mg PO DAILY [facility] Last Admin: 01/02/20 08:07 Dose: 10 mg Documented by: Cyclobenzaprine HCl (Flexeril) 10 mg PO TID PRN PRN Reason: Spasms Last Admin: 12/30/19 20:46 Dose: 10 mg Documented by: Docusate Sodium (Colace 250mg Capsule) 250 - 500 mg PO DAILY [facility] Last Admin: 01/02/20 08:06 Dose: 250 mg Documented by: Ferrous Gluconate (Fergon) 324 mg PO DAILYWM [facility] Last Admin: 01/02/20 08:05 Dose: 324 mg Documented by: Folic Acid () 1 mg PO DAILY [facility] Last Admin: 01/02/20 08:06 Dose: 1 mg Documented by: Sodium Chloride (Normal Saline 0.9%) 1,000 mls @ 60 mls/hr IV .[id number] [facility] Last Admin: 01/02/20 08:01 Dose: 60 mls/hr Documented by: Levothyroxine Sodium (Synthroid) 25 mcg PO QDAC [facility] Last Admin: 01/02/20 05:58 Dose: 25 mcg Documented by: Metoprolol Succinate (Toprol Xl) 25 mg PO BID [facility] Last Admin: 01/02/20 08:10 Dose: 25 mg Documented by: Ondansetron HCl (Zofran Inj) 4 mg IVP Q6HR PRN PRN Reason: Nausea / Vomiting Last Admin: 12/26/19 22:00 Dose: 4 mg Documented by: Phenol/Menthol (Chloraseptic) 2 sprays MM Q2HR PRN PRN Reason: Throat Pain Polyethylene Glycol (Miralax) 17 gm PO DAILY [facility] Last Admin: 01/02/20 08:02 Dose: 17 gm Documented by: Quetiapine Fumarate (Seroquel) 25 mg PO QPM [facility] Last Admin: 01/01/20 21:45 Dose: 25 mg Documented by: Senna (Senokot) 8.6 - 17.2 mg PO DAILY [facility] Last Admin: 01/02/20 08:06 Dose: 8.6 mg Documented by: Sodium Chloride (Normal Saline Flush 0.9%) 10 ml IVP 0100,0900,1700 [facility] Last Admin: 01/02/20 08:11 Dose: Not Given Documented by: Sodium Chloride (Normal Saline Flush 0.9%) 10 ml IVP PRN PRN PRN Reason: NEEDED PER PROVIDER ORDERS Last Admin: 12/26/19 22:08 Dose: 10 ml Documented by: Throat Lozenges (Cepacol) 1 lozenge MM Q2HR PRN PRN Reason: Throat pain Last Admin: 01/02/20 05:59 Dose: 1 lozenge Documented by: lisinopriL [Lisinopril] 5 mg PO DAILY 09/25/12 Citalopram [CeleXA] 10 mg PO DAILY 12/26/19 Triamterene/Hydrochlorothiazid [Triamterene-Hctz 37.5-25 mg Tb] 1 tab PO DAILY 12/26/19
[2020-01-02 13:54] LABS: C. PNEUMONIAE- RESP PCR PANEL NOT DETECTED
[2020-01-02] MEDS: QUEtiapine 25 MG TABLET PO SCH (20:56)
[2020-01-02] MEDS ORDERED: polyethylene glycoL 3350 17 GM PACKET PO SCH (21:00)
[2020-01-03] MEDS: SODIUM CHLORIDE 0.9% 1,000 ML IV SCH (01:23)
[2020-01-03] MEDS: SODIUM CHLORIDE FLUSH 0.9% 10 ML SYRINGE IVP SCH ×2 (01:24→08:32)
[2020-01-03] MEDS: ACETAMINOPHEN 325 MG TABLET PO PRN ×2 (05:03→08:30)
[2020-01-03 05:56] LABS: BASOPHILS % (AUTO) 0.4 %; EOSINOPHILS # (AUTO) 0.3 10^3/uL (0.0-0.7); EOSINOPHILS % (AUTO) 3.8 %; HGB - HEMOGLOBIN 8.5 g/dL (12.0-16.0); LYMPHOCYTES # (AUTO) 1.9 10^3/uL (1.5-3.5); LYMPHOCYTES % (AUTO) 27.8 %; MEAN CORPUSCULAR HEMOGLOBIN 28.4 pg (27.0-31.0); MEAN CORPUSCULAR HGB CONC 32.1 g/dL (32.0-36.0); MEAN CORPUSCULAR VOLUME 88.6 fL (81.0-99.0); MEAN PLATELET VOLUME 9.4 fL (7.9-10.8); MONOCYTES # (AUTO) 0.6 10^3/uL (0.0-1.0); MONOCYTES % (AUTO) 9.1 %; NEUTROPHILS % (AUTO) 57.7 %; PLT - PLATELET COUNT 441 10^3/uL (130-450); RED BLOOD COUNT 2.99 10^6/uL (4.20-5.40); RED CELL DISTRIBUTION WIDTH 13.2 % (12.0-15.0); WHITE BLOOD COUNT 6.8 x10^3/uL (4.8-10.8)
[2020-01-03 06:07] LABS: CALCIUM 8.6 mg/dL (8.5-10.3)
[2020-01-03] MEDS: LEVOTHYROXINE 25 MCG TABLET PO SCH (06:19)
[2020-01-03] MEDS: polyethylene glycoL 3350 17 GM PACKET PO SCH (08:29)
[2020-01-03] MEDS: CHOLECALCIFEROL 400 UNIT TABLET PO SCH (08:30)
[2020-01-03] MEDS: SENNA 8.6 MG TABLET PO SCH (08:30)
[2020-01-03] MEDS: FOLIC ACID 1 MG TABLET PO SCH (08:30)
[2020-01-03] MEDS: CITALOPRAM 10 MG TABLET PO SCH (08:31)
[2020-01-03] MEDS: CALCIUM CITRATE 250 MG TABLET PO SCH (08:31)
[2020-01-03] MEDS: METOPROLOL SUCCINATE 25 MG TABLET PO SCH (08:31)
[2020-01-03] MEDS: FERROUS GLUCONATE 324 MG TABLET PO SCH (08:32)
[2020-01-03] MEDS: ASPIRIN EC 81 MG TABLET PO SCH (08:32)
[2020-01-03] MEDS: DOCUSATE SODIUM 250 MG CAPSULE PO SCH (08:32)
--- NOTE | 2020-01-03 08:47 | Discharge Plan ---
"Discharge Plan for SNF / [facility] - Discharge Plan And Transition Orders Problem Reviewed?: Yes Disposition: 03 SNF DC/Xfer Condition: Stable Allergies and Adverse Reactions: Allergies Allergy/AdvReac Type Severity Reaction Status Date / Time No Known Drug Allergies Allergy Verified 12/25/19 17:17 Health Concerns: status post of total hip for fracture, PSVT/IHSS/heart murmur, hypothyroidism Plan of Treatment: Stable POD 9 days of left total hip for fracture. pt is slow to mobilize. pt Need to mobilize with physical therapy. pt may Follow-up 1-5 days for wound check. Aspirin 81 mg twice daily for 28 days for prophylaxis against DVT, pt remain 19 days. Anterior hip precautions. Follow-up in orthopedics clinic in 6 weeks with radiographs of the hip or early as needed. pt's PSVT is controlled by Metoprolol, ECHO reveals IHSS, and pt had significant heart murmur, followup with senior architectural designer as early as possible. Pt has elevated TSH, pt is prescribed synthroid, followup with PCP management. Care Goals: stabilization and improvement of pt's medical conditions Assessment: discussed the care plan with pt, pt understood. - SNF / SKILLED NURSING Transition Orders Admit to (Facility): [facility] Under the care of (Name): Medical provider of [place] [facility] Discharge Diagnosis: femoral neck fracture, PSVT, anemia, IHSS, pulmonary HTN, fall at home, hypothyroidism, HTN, JOSR Medicare Certification Statement: I certify that [facility] senior care care is medically necessary on a continuing basis for any of the conditions for which she/he is receiving care during hospitalization. Notify PCP of admission and forward orders to primary provider for signature. Weight on admission and: Daily Call PCP immediately if weight increases by: 2 kg Other Notification Orders: Call PCP immediately if patient develops dyspnea, chest pain/tightness or edema. House Bowel Program: Yes Additional Bowel Program Orders: If no BM after 2 days, nurse may give M.O.M. 30ml PO PRN and/or ducolax Supp 1 VT and/or SONA 250mg P.O., and/or senna 1-2 tabs PO. On day 3 nurse may give repeat above order until residents constipation is resolved. Annual Influenza Vaccine (between Oct 07 and May 06): Yes Two-step PPD per [facility] [id number] or approved exception documents: Yes Treatments & Other Orders: Stable POD 9 days of left total hip for fracture. pt is slow to mobilize. pt Need to mobilize with physical therapy. pt may Follow-up 1-5 days for wound check. Aspirin 81 mg twice daily for 28 days for prophylaxis against DVT, pt remain 19 days. Anterior hip precautions. Follow-up in orthopedics clinic in 6 weeks with radiographs of the hip or early as needed. pt's PSVT is controlled by Metoprolol, ECHO reveals IHSS, and pt had significant heart murmur, followup with senior architectural designer as early as possible. Pt has elevated TSH, pt is prescribed synthroid, followup with PCP management. Medication Orders: PLEASE REFER TO THE DISCHARGE MEDICATION LIST. Insulin Orders?: No - Medications New Prescriptions: Acetaminophen [Tylenol] 650 mg PO Q4HR PRN #30 tablet PRN Reason: Pain Or Fever > 38c (100.4f) Calcium Citrate 250 mg PO DAILY #30 tablet Aspirin EC [Ecotrin] 81 mg PO BID #38 tablet Ferrous Gluconate [Fergon] 324 mg PO DAILYWM #30 tablet Levothyroxine [Synthroid] 25 mcg PO QDAC #30 tablet Metoprolol Succinate [Toprol Xl] 25 mg PO BID #30 tablet Cholecalciferol [Vitamin D3] 800 unit PO DAILY #30 tablet - Diet Type: Geriatric [facility] Liquids: Thin May have monthly special meal: Yes - Therapies | Activity Therapy: Evaluation | Treat if indicated: PT, OT Rehabilitation Potential: Maximize functional status Activity: Activity as Tolerated"
--- NOTE | 2020-01-03 09:07 | DISCHARGE SUMMARY ---
"Discharge Summary Admit Date: 12/25/19 Discharge Date: 01/03/20 Discharging Provider: Luciano Cantrell Primary Care Provider: Sugey Jones Condition at Discharge: Stable Discharge Disposition: 03 SNF DC/Xfer Discharge Facility Name: [facility] - DIAGNOSES Discharge Diagnoses with Status of Each Condition: (1) Femoral neck fracture pt had left total hip repair by Orthopedic surgeon. Patient was discharged to [facility] rehab for continued physical therapist and occupational therapist training. pt may Follow-up 1-5 days for wound check. Aspirin 81 mg twice daily for 28 days for prophylaxis against DVT, pt remain 19 days. Anterior hip precautions. Follow-up in orthopedics clinic in 6 weeks with radiographs of the hip or early as needed. (2) Altered mental status resolved. (3) PSVT (paroxysmal supraventricular tachycardia) Resolved and hemodynamic stable, Follow-up with outpatient lead relay tester, pt is prescribed Metoprolol. (4) Anemia stable. postoperative anemia. Laboratory also review patient has iron deficiency, continue iron. 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 continue Metoprolol, advise pt followup with lead relay tester (6) Pulmonary HTN Assessment/Plan: pt's Echo done this admission reveals pulmonary HTN. The etiology could be obesity hypoventilation syndrome or sleep apnea, which need work-up as an outpatient. advise pt have out-pt sleep study and followup lead relay tester (7) Fall at home continue PT/OT in SNF and fall prevention. (8) Hypothyroidism Patient was found TSH high, patient is prescription 25 mcg Synthroid, continue PCP management. (9) Hx of essential hypertension stable, continue beta-hayley (10) Metabolic acidosis Resolved (11) JOSR (acute kidney injury) Resolved (12) Hypotension Assessment/Plan: Resolved (13)heart murmur Patient had loud murmur, ECHO show preserved EF, mild Aortic stenosis, moderate to severe tricuspid and mitral regurgitation, And severe pulmonary hypertension. Follow-up lead relay tester - HPI History of Present Illness: refer from Dr. Grey's HPI onn 12/25/2019 Patient is an 84-year-old female with medical history significant for hypertension and depression who was brought to the ED after a mechanical fall today. She was in the bathroom and went to stand when she slipped and fell. She did not hit her head or blackout. It appears she has been having a difficult time walking lately and has been prone to falls consequently her got a wheelchair for her to use to get around. Work-up in the ED included an x-ray of the hip and pelvis which showed a left impacted/displaced fracture of the femoral neck. Consequently the patient was presented for admission for further treatment. At bedside she denied chest pain, dyspnea, abdominal pain, nausea, vomiting, fever or chills. She rates her pain 9 out of 10 currently. The rest of her history is unremarkable. - CONSULTS | PROCEDURES Consultations: Procedures: left total hip repair - HOSPITAL COURSE Hospital Course: Patient was admitted for evaluation of a mechanical fall in the home. Patient was found to have left femur fracture. Patient was consulted with orthopedic surgeon. Patient had left hip total repair by the surgeon. Patient develop postural operation complication with SVT and hypotension. Patient was transferred to the ICU for stabilization. After the patient will give beta- hayley, her SVT was stabilized. Patient also develop mental status change, then return to her baseline. Physical therapist and occupational therapist evaluated and treated the patient. Patient was recommended to be discharge to SNF. - ALLERGIES Allergies/Adverse Reactions: Allergies Allergy/AdvReac Type Severity Reaction Status Date / Time No Known Drug Allergies Allergy Verified 12/25/19 17:17 - MEDICATIONS Home Medications: Ambulatory Orders Medication Instructions Recorded Confirmed Citalopram [CeleXA] 10 mg PO DAILY 12/26/19 12/26/19 Acetaminophen [Tylenol] 650 mg PO Q4HR PRN #30 tablet 01/03/20 Aspirin EC [Ecotrin] 81 mg PO BID #38 tablet 01/03/20 Calcium Citrate 250 mg PO DAILY #30 tablet 01/03/20 Cholecalciferol [Vitamin D3] 800 unit PO DAILY #30 tablet 01/03/20 Ferrous Gluconate [Fergon] 324 mg PO DAILYWM #30 tablet 01/03/20 Levothyroxine [Synthroid] 25 mcg PO QDAC #30 tablet 01/03/20 Metoprolol Succinate [Toprol Xl] 25 mg PO BID #30 tablet 01/03/20 - PHYSICAL EXAM AT DISCHARGE General Appearance: positive: No acute distress, Alert. negative: Lethargic Eyes Bilateral: positive: Normal inspection, PERRL, No lid inflammation ENT: positive: ENT inspection nml, No signs of dehydration. negative: Purulent nasal drainage Neck: positive: Nml inspection, Thyroid nml, Trachea midline. negative: Thyromegaly, Tracheal deviation Respiratory: positive: Chest non-tender, No respiratory distress, Breath sounds nml. negative: Wheezes, Rales, Rhonchi Cardiovascular: positive: Regular rate & rhythm, Systolic murmur, Diastolic murmur. negative: Tachycardia, Bradycardia Peripheral Pulses: positive: 2+ Abdomen: positive: Non-tender, Nml bowel sounds, No distention. negative: Tenderness, Guarding, Rebound Back: positive: Nml inspection. negative: CVA tenderness (R), CVA tenderness (L) Skin: positive: Color nml, Warm, Dry. negative: Cyanosis, Diaphoresis, Pallor Extremities: positive: Non-tender, Other (pt's surgery site dressing is intact without drainage. ). negative: Calf tenderness Neurologic/Psychiatric: positive: Oriented x3, Sensation nml, Mood/affect nml. negative: Weakness, Sensory loss, Facial droop, Slurred/abnml speech, Depressed mood/affect - LABS Result Diagrams: 01/03/20 05:25 01/03/20 05:25 - FOLLOW UP Follow Up: Stable POD 9 days of left total hip for fracture. pt is slow to mobilize. pt Need to mobilize with physical therapy. pt may Follow-up 1-5 days for wound check. Aspirin 81 mg twice daily for 28 days for prophylaxis against DVT, pt remain 19 days. Anterior hip precautions. Follow-up in orthopedics clinic in 6 weeks with radiographs of the hip or early as needed. pt's PSVT is controlled by Metoprolol, ECHO reveals IHSS, and pt had significant heart murmur, followup with lead relay tester as early as possible. Pt has elevated TSH, pt is prescribed synthroid, followup with PCP management. - TIME SPENT Time Spent in Discharge (Minutes): 30"
[2020-01-03 10:58] VITALS: BP 94/63
== END 2020-01-03 11:15 | DRG 522 ==
LOC: ED 17:12 → MS2 18:44 → ICU 12-26 16:44 → MS2 12-28 13:47
PROVIDERS: ADMIT Internal Medicine; ATTEND Nurse Practitioner Gerontology
PROC: 0QH704Z Insertion of Internal Fixation Device into Left Upper Femur, Open Approach (ICD-10-PCS; 2019-12-26)
PROC: 0SRB04Z Replacement of Left Hip Joint with Ceramic on Polyethylene Synthetic Substitute, Open Approach (ICD-10-PCS; principal; 2019-12-26 11:15)
DX: S72.002A Fracture of unspecified part of neck of left femur, initial encounter for closed fracture (principal); S72.012A Unspecified intracapsular fracture of left femur, initial encounter for closed fracture; I97.191 Other postprocedural cardiac functional disturbances following other surgery; I47.1 Supraventricular tachycardia; I10 Essential (primary) hypertension; R41.0 Disorientation, unspecified; I42.1 Obstructive hypertrophic cardiomyopathy; E87.2 Acidosis; N17.9 Acute kidney failure, unspecified; I24.8 Other forms of acute ischemic heart disease; W01.0XXA Fall on same level from slipping, tripping and stumbling without subsequent striking against object, initial encounter; Y92.002 Bathroom of unspecified non-institutional (private) residence as the place of occurrence of the external cause; S72.125A Nondisplaced fracture of lesser trochanter of left femur, initial encounter for closed fracture; R41.82 Altered mental status, unspecified; D64.9 Anemia, unspecified; D50.9 Iron deficiency anemia, unspecified; I27.20 Pulmonary hypertension, unspecified; Z91.81 History of falling; E03.9 Hypothyroidism, unspecified; R01.1 Cardiac murmur, unspecified; F32.9 Major depressive disorder, single episode, unspecified; I95.81 Postprocedural hypotension; Z99.3 Dependence on wheelchair; F03.90 Unspecified dementia, unspecified severity, without behavioral disturbance, psychotic disturbance, mood disturbance, and anxiety; G47.33 Obstructive sleep apnea (adult) (pediatric); I11.0 Hypertensive heart disease with heart failure; I50.9 Heart failure, unspecified; R94.31 Abnormal electrocardiogram [ECG] [EKG]; D52.9 Folate deficiency anemia, unspecified; E86.0 Dehydration; Z20.828 Contact with and (suspected) exposure to other viral communicable diseases
CPT/HCPCS: 36415; 36600; 51702; 71045; 72131; 72170; 72192; 73502; 80048; 80076; 81001; 82607; 82746; 82803; 83540; 83735; 84100; 84439; 84443; 84466; 84484; 85014; 85018; 85025; 85610; 86850; 86900; 86901; 87150; 87631; 93005; 93306; 96374; 96375; 97116; 97162; 97166; 97530; 99284; 99285; A9270; J0131; J1200; J7120; 0202U; 81003; 87086

== ENCOUNTER 2020-02-01 02:11 | Outpatient (CLI) | payer MEDICARE, BC | END 2020-02-01 02:12 | disposition critical access hospital (66) | LOC: EMS 02:11 | PROVIDERS: ATTEND Surgery | DX: R10.30 Lower abdominal pain, unspecified (principal) | CPT/HCPCS: A0425; A0427 ==

== ENCOUNTER 2020-02-01 02:50 | Emergency (ER) | payer MEDICARE, BC ==
[2020-02-01] MEDS ORDERED: ACETAMINOPHEN 325 MG TABLET PO STA (02:56)
--- NOTE | 2020-02-01 02:57 | ED Physician Documentation ---
PD HPI LOWER EXT INJURY - Stated complaint Stated Complaint: GLF - History obtained from History obtained from: Patient - History of Present Illness PD HPI LOW EXT INJURY LOCATION: Left, Hip Type of injury: Fall Where injury occurred: Home Timing - onset: How many minutes ago (40) Timing - details: Abrupt onset (Hip replacement for femoral neck fracture end of December and had been in rehab in [place] for 3 weeks and just discharged several days ago. She had been getting around at home with her walker and help of her . Stumbled getting out of bed to the bathroom by herself tonight and fell onto hip) Worsened by: Moving, Palpating Associated symptoms: No: Weakness, Numbness Contributing factors: Prior ortho surgery (1 month ago here at [facility] for femoral neck fracture.). No: Anticoagulated Recently seen: Surgery Review of Systems Constitutional: denies: Fever Nose: denies: Rhinorrhea / runny nose, Congestion Throat: denies: Sore throat Cardiac: denies: Chest pain / pressure Respiratory: denies: Cough GI: denies: Abdominal Pain, Vomiting, Diarrhea Neurologic: denies: Altered mental status, Headache, Head injury PD PAST MEDICAL HISTORY - Past Medical History Cardiovascular: Hypertension, Valve disorder Respiratory: Pneumonia Neuro: Dementia Endocrine/Autoimmune: None GI: None : None Psych: Depression, Anxiety Musculoskeletal: Osteoporosis - Past Surgical History Past Surgical History: Yes HEENT: Tonsil/Adenoidectomy Derm: Skin cancer surgery - Present Medications Home Medications: Ambulatory Orders Medication Instructions Recorded Confirmed Citalopram [CeleXA] 10 mg PO DAILY 12/26/19 12/26/19 Acetaminophen [Tylenol] 650 mg PO Q4HR PRN #30 tablet 01/03/20 Aspirin EC [Ecotrin] 81 mg PO BID #38 tablet 01/03/20 Calcium Citrate 250 mg PO DAILY #30 tablet 01/03/20 Cholecalciferol [Vitamin D3] 800 unit PO DAILY #30 tablet 01/03/20 Ferrous Gluconate [Fergon] 324 mg PO DAILYWM #30 tablet 01/03/20 Levothyroxine [Synthroid] 25 mcg PO QDAC #30 tablet 01/03/20 Metoprolol Succinate [Toprol Xl] 25 mg PO BID #30 tablet 01/03/20 - Allergies Allergies/Adverse Reactions: Allergies Allergy/AdvReac Type Severity Reaction Status Date / Time No Known Drug Allergies Allergy Verified 12/26/20 02:56 - Social History Does the pt smoke?: No Smoking Status: Never smoker Does the pt drink ETOH?: No Does the pt have substance abuse?: No - POLST POLST Status: Full Code PD ED PE NORMAL - Vitals Vital signs reviewed: Yes - General General: Alert and oriented X 3, No acute distress, Well developed/nourished - HEENT HEENT: Atraumatic - Neck Neck: Supple, no meningeal sign, No bony TTP - Respiratory Respiratory: No respiratory distress, Clear bilaterally, Other (no chestwall tenderness) - Abdomen Abdomen: Soft, Non tender - Derm Derm: Normal color, Warm and dry - Extremities Extremities: Other (healing scar lateral left hip without signs of infection. Tender with mild swelling lateral left hip. Passive ROM without pain. Active ROM hurting for lifting leg and guarded movement. Mild tender anterior knee suprapatellar area. No deformity. ) - Neuro Neuro: Alert and oriented X 3, No motor deficit, No sensory deficit, Normal speech Results - Vitals Vitals: Vital Signs - 24 hr 02/01/20 02/01/20 02/01/20 02:56 03:03 04:07 Temperature 37.1 C 37.1 C 37.1 C Heart Rate 64 64 62 Respiratory 16 16 16 Rate Blood Pressure 115/79 115/79 112/72 O2 Saturation 100 100 100 02/01/20 02/01/20 02/01/20 04:52 06:00 07:00 Temperature 37.1 C Heart Rate 64 71 74 Respiratory 16 16 18 Rate Blood Pressure 117/63 102/53 L 106/55 L O2 Saturation 100 96 95 Oxygen O2 Source Room air - EKG (time done) 06:44 Rate: Rate (enter#) (61) Rhythm: NSR Marion: Normal Intervals: Normal OR QRS: Normal Ischemia: Normal ST segments, Q waves (III). No: ST elevation c/w ischemia, ST depression - Labs Labs: Laboratory Tests 02/01/20 02/01/20 02/01/20 06:00 06:06 06:06 WBC 6.5 RBC 3.90 L Hgb 10.6 L Hct 33.1 L MCV 84.9 MCH 27.2 MCHC 32.0 RDW 13.6 Plt Count 328 MPV 9.0 Neut # (Auto) 3.5 Lymph # (Auto) 2.1 Bingham # (Auto) 0.7 Eos # (Auto) 0.1 Baso # (Auto) 0.0 Absolute Nucleated RBC 0.00 Nucleated RBC % 0.0 PT 13.2 H INR 1.2 APTT 23.7 L Sodium Potassium Chloride Carbon Dioxide Anion Gap BUN Creatinine Estimated GFR (MDRD) Glucose Calcium Magnesium Total Bilirubin AST ALT Alkaline Phosphatase Total Protein Albumin Globulin Albumin/Globulin Ratio Lipase Urine Color Urine Clarity Urine pH Ur Specific Baldwin Urine Protein Urine Glucose (UA) Urine Ketones Urine Occult Blood Urine Nitrite Urine Bilirubin Urine Urobilinogen Ur Leukocyte Esterase Ur Microscopic Review Urine Culture Comments Nasal Adenovirus (PCR) NOT DETECTED Nasal B. parapertussis DNA (PCR) NOT DETECTED Nasal Coronavir 229E PCR NOT DETECTED Nasal Coronavir HKU1 PCR NOT DETECTED Nasal Coronavir NL63 PCR NOT DETECTED Nasal Coronavir OC43 PCR NOT DETECTED Nasal Enterovir/Rhinovir PCR NOT DETECTED Nasal Influenza B PCR NOT DETECTED Nasal Influenza A PCR NOT DETECTED Nasal Parainfluen 1 PCR NOT DETECTED Nasal Parainfluen 2 PCR NOT DETECTED Nasal Parainfluen 3 PCR NOT DETECTED Nasal Parainfluen 4 PCR NOT DETECTED Nasal RSV (PCR) NOT DETECTED Nasal B.pertussis DNA PCR NOT DETECTED Nasal C.pneumoniae (PCR) NOT DETECTED Sae Human Metapneumo PCR NOT DETECTED Nasal M.pneumoniae (PCR) NOT DETECTED Nasal SARS-CoV-2 (PCR) NOT DETECTED 02/01/20 02/01/20 06:06 06:13 WBC RBC Hgb Hct MCV MCH MCHC RDW Plt Count MPV Neut # (Auto) Lymph # (Auto) Bingham # (Auto) Eos # (Auto) Baso # (Auto) Absolute Nucleated RBC Nucleated RBC % PT INR APTT Sodium 131 L Potassium 3.7 Chloride 98 L Carbon Dioxide 23 Anion Gap 10.0 BUN 23 H Creatinine 0.9 Estimated GFR (MDRD) 60 L Glucose 107 H Calcium 9.1 Magnesium 1.8 Total Bilirubin 0.5 AST 18 ALT 17 Alkaline Phosphatase 85 Total Protein 6.7 Albumin 3.4 Globulin 3.3 Albumin/Globulin Ratio 1.0 Lipase 36 Urine Color YELLOW Urine Clarity CLEAR Urine pH 6.5 Ur Specific Baldwin 1.010 Urine Protein NEGATIVE Urine Glucose (UA) NEGATIVE Urine Ketones NEGATIVE Urine Occult Blood TRACE-INTA Urine Nitrite NEGATIVE Urine Bilirubin NEGATIVE Urine Urobilinogen 0.2 (NORMAL) Ur Leukocyte Esterase NEGATIVE Ur Microscopic Review NOT INDICATED Urine Culture Comments NOT INDICATED Nasal Adenovirus (PCR) Nasal B. parapertussis DNA (PCR) Nasal Coronavir 229E PCR Nasal Coronavir HKU1 PCR Nasal Coronavir NL63 PCR Nasal Coronavir OC43 PCR Nasal Enterovir/Rhinovir PCR Nasal Influenza B PCR Nasal Influenza A PCR Nasal Parainfluen 1 PCR Nasal Parainfluen 2 PCR Nasal Parainfluen 3 PCR Nasal Parainfluen 4 PCR Nasal RSV (PCR) Nasal B.pertussis DNA PCR Nasal C.pneumoniae (PCR) Sae Human Metapneumo PCR Nasal M.pneumoniae (PCR) Nasal SARS-CoV-2 (PCR) - Rads (name of study) left femur Radiology: Prelim report reviewed (new intertrochanteric fracture. s/p hip replacement, with prosthesis intact. ), Discussed with rads, See rad report hip CT Radiology: Prelim report reviewed, Discussed with rads, See rad report PD MEDICAL DECISION MAKING - ED course Complexity details: reviewed results (initially I thought xray okay, but radiologist seeing new intertrochanteric fracture. Will get CT to eval and discuss with Ortho. ), considered differential (NO fracture nor dislocation related to recent replacment. ), d/w patient, d/w family (Patient's . Given the discomfort with medicine taking care of the patient here, the patient's 's preference would be the [facility]. Will contact them to see if they have beds available.), d/w neuropsychology medical consultant (Dr. Love, Ortho, who can do the surgery. However, Dr. Grey for Medicine, pointed out difficulties in first surgery and findings of IHHS and PSVT, Pulmonary HTN after first surgery and feeling pt too difficult for our facility.) ED course: Talked with the transfer center. It did sound like they had beds available. They will research the appropriate specialist to call back. At this point awaiting callback from the transfer center. The patient remains comfortable in the ER. Pain medicine will be provided if needed any further. Departure - Departure Disposition: 02 Transfer Acute Care Hosp Clinical Impression: IHSS (idiopathic hypertrophic subaortic stenosis), Pulmonary hypertension Fall from slip, trip, or stumble Qualifiers: Encounter type: initial encounter Qualified Code(s): W01.0XXA - Fall on same level from slipping, tripping and stumbling without subsequent striking against object, initial encounter Contusion, hip Qualifiers: Encounter type: initial encounter Laterality: left Qualified Code(s): S70.02XA - Contusion of left hip, initial encounter Status post hip replacement Qualifiers: Laterality: left Qualified Code(s): Z96.642 - Presence of left artificial hip joint Periprosthetic fracture of hip Qualifiers: Encounter type: initial encounter Qualified Code(s): M97.8XXA - Periprosthetic fracture around other internal prosthetic joint, initial encounter Condition: Stable Record reviewed to determine appropriate education?: Yes Follow-Up: Sugey Dominguez MD [Primary Care Provider] - Tre Love MD [Provider Admit Priv/Credential] - Comments: Your x-ray here appears normal without any signs of fractures or dislodgment or dislocation of the hip replacement. Continue with your level of activity with walking with a walker and any therapy that you are doing. Tylenol every 4-6 hours if needed for pain.
[2020-02-01 06:13] LABS: BASOPHILS % (AUTO) 0.2 %; EOSINOPHILS # (AUTO) 0.1 10^3/uL (0.0-0.7); HGB - HEMOGLOBIN 10.6 g/dL (12.0-16.0); LYMPHOCYTES # (AUTO) 2.1 10^3/uL (1.5-3.5); MEAN CORPUSCULAR HEMOGLOBIN 27.2 pg (27.0-31.0); MEAN CORPUSCULAR VOLUME 84.9 fL (81.0-99.0); MONOCYTES # (AUTO) 0.7 10^3/uL (0.0-1.0); MONOCYTES % (AUTO) 10.2 %; NEUTROPHILS # (AUTO) 3.5 10^3/uL (1.5-6.6); NEUTROPHILS % (AUTO) 54.3 %; PLT - PLATELET COUNT 328 10^3/uL (130-450); RED CELL DISTRIBUTION WIDTH 13.6 % (12.0-15.0); WHITE BLOOD COUNT 6.5 x10^3/uL (4.8-10.8)
[2020-02-01 06:19] LABS: INR 1.2 (0.8-1.2); PT - PROTHROMBIN TIME 13.2 secs (9.9-12.6)
[2020-02-01 06:26] LABS: PARTIAL THROMBOPLASTIN TIME 23.7 secs (24.9-33.3)
[2020-02-01 06:28] LABS: ALBUMIN 3.4 g/dL (3.2-5.5); BILIRUBIN,TOTAL 0.5 mg/dL (0.2-1.0); CALCIUM 9.1 mg/dL (8.5-10.3); CREATININE 0.9 mg/dL (0.4-1.0); MAGNESIUM 1.8 mg/dL (1.7-2.8); TOTAL PROTEIN 6.7 g/dL (6.7-8.2)
[2020-02-01 06:32] LABS: BILIRUBIN,URINE NEGATIVE (NEGATIVE); CLARITY,URINE CLEAR (CLEAR); GLUCOSE, URINE (UA) NEGATIVE (NEGATIVE); KETONES,URINE (UA) NEGATIVE (NEGATIVE); LEUKOCYTE ESTERASE, URINE NEGATIVE (NEGATIVE); NITRITE,URINE NEGATIVE (NEGATIVE); OCCULT BLOOD,URINE TRACE-INTA (NEGATIVE); PH,URINE 6.5 PH (5.0-7.5); PROTEIN,URINE NEGATIVE (NEGATIVE); UROBILINOGEN,URINE 0.2 (NORMAL) E.U./dL (NORMAL)
[2020-02-01 07:10] LABS: C. PNEUMONIAE- RESP PCR PANEL NOT DETECTED
--- NOTE | 2020-02-01 07:14 | ED Physician Documentation ---
ED Addendum - Addendum Addendum: 02/01/20 07:13 Patient awaiting placement for transfer to [facility] for prosthetic hip fracture in the setting of underlying complex medical disease. Patient endorsed to me by Dr. Orosco for placement. 02/01/20 18:13 Multiple calls placed to Dr. Gama, orthopedist at . additional xrays ordered and sent per their request. Called again several minutes ago and he is in a new case. 02/01/20 18:58 Called transfer center personally and asked for hospitalist. Patient endorsed to Dr. Garcia for placement. she had temp 100.7. I examined the patient and she was under a lot of blankets. she states she does not feel ill but that her hip hurts. morphine ordered. endorsed to Dr. Garcia to reassess for need for CT given lower abdominal/hip pain and mild fever.
--- NOTE | 2020-02-01 09:43 | CT Report ---
PROCEDURE: LOWER EXTREMITY WO - LT INDICATIONS: post hip replacement; ? new facture TECHNIQUE: Noncontrast 3 mm axial sections acquired of the left hip, with coronal and sagittal reformats. COMPARISON: Femur plain films, 02/01/2020. Pelvis plain films, 12/26/2019. Pelvis CT, 12/26/2019 FINDINGS: Image quality: Excellent. Bones: Left hip arthroplasty hardware is seen. No cem findings of hardware failure can be seen. No prosthesis dislocation. There is seen and intertrochanteric fracture seen, with moderate displacement and comminution. There is also a fracture line that is seen along the medial/distal aspect of the femoral hardware. These f ractures are new compared to the preoperative imaging. No fractures of the pelvis can be seen. Soft tissues: Mild surrounding inflammatory changes are seen. IMPRESSION: There is a periprosthetic fracture seen involving the intertrochanteric region, with a fracture line extending along the medial anterior aspect of the femoral portion of the prosthesis. Note: No significant discrepancy from the preliminary report. Reviewed by: Don Mejia MD on 02/01/2020 8:41 AM [facility] Approved by: Don Mejia MD on 02/01/2020 8:41 AM [facility] Station ID: [id number]
--- NOTE | 2020-02-01 09:44 | XRAY Report ---
PROCEDURE: Femur 2V LT INDICATIONS: recent hip repair; fell tonight with pain TECHNIQUE: 2 views of the femur were acquired. COMPARISON: Correlation is made with the accompanying pelvis CT as well as the prior imaging dated 02/24/2019. FINDINGS: Bones: There is an intertrochanteric fracture seen, which is new compared to the preoperative imaging . No fracture can be seen of the distal femur. The left hip arthroplasty hardware appears intact. Soft tissues: No suspicious soft tissue calcifications or masses. IMPRESSION: Intertrochanteric fracture seen, which is new compared to prior imaging. Note: No significant discrepancy from the preliminary report. Reviewed by: Don Mejia MD on 02/01/2020 8:[address] [facility] Approved by: Don Mejia MD on 02/01/2020 8:[address] [facility] Station ID: [id number]
--- NOTE | 2020-02-01 12:34 | XRAY Report ---
PROCEDURE: Hip w/Pelvis 2-3V LT INDICATIONS: AP lat hip, AP pelvis for fracture TECHNIQUE: AP pelvis with lateral view(s) of the left hip(s). COMPARISON: CT, 02/01/2020, femur plain film, 02/01/2020. Comparison is also made to the prior imagi ng, 12/26/2019. FINDINGS: Bones: There is a moderately displaced intertrochanteric fracture seen, which is new compared to the preoperative imaging. The fracture along the medial aspect of the fusion hardware within the proximal femoral shaft is not seen by plain film. The bones of the pelvis are unremarkable. Note is made of age-appropriate degenerative change of the lower lumbar spine. Soft tissues: The visualized bowel gas pattern is normal. No suspicious soft tissue calcifications. IMPRESSION: Intertrochanteric periprosthetic fracture seen by plain film. The known fracture that is seen adjacent to the femoral hardware medially is not depicted on these pl ain films. Reviewed by: Don Mejia MD on 02/01/2020 11:33 AM [facility] Approved by: Don Mejia MD on 02/01/2020 11:33 AM [facility] Station ID: [id number]
[2020-02-01] MEDS ORDERED: MORPHINE 10 MG/ML VIAL IVP STA (18:51)
[2020-02-02] MEDS ORDERED: SODIUM CHLORIDE 0.9% 1,000 ML IV STA (05:56)
[2020-02-02 07:49] VITALS: BP 114/67
== END 2020-02-02 09:40 | disposition short-term general hospital (02) ==
LOC: EDUNIT# → ED 02:50 → SUPCPDRO 02:50 → ED 02-02 09:40
DX: S72.142A Displaced intertrochanteric fracture of left femur, initial encounter for closed fracture (principal); M97.02XA Periprosthetic fracture around internal prosthetic left hip joint, initial encounter; S70.02XA Contusion of left hip, initial encounter; W01.0XXA Fall on same level from slipping, tripping and stumbling without subsequent striking against object, initial encounter; Y93.01 Activity, walking, marching and hiking; Y92.003 Bedroom of unspecified non-institutional (private) residence as the place of occurrence of the external cause; Z96.642 Presence of left artificial hip joint; Z20.828 Contact with and (suspected) exposure to other viral communicable diseases; I42.1 Obstructive hypertrophic cardiomyopathy; I27.20 Pulmonary hypertension, unspecified; I10 Essential (primary) hypertension; F03.90 Unspecified dementia, unspecified severity, without behavioral disturbance, psychotic disturbance, mood disturbance, and anxiety; Z79.82 Long term (current) use of aspirin
CPT/HCPCS: 36415; 73502; 73552; 73700; 80053; 81003; 83690; 83735; 85025; 85610; 85730; 87631; 93005; 96374; 99284; 99285; A9270; 0202U; 81001; 87086

== ENCOUNTER 2022-07-26 07:10 | Outpatient (CLI) | payer MEDICARE, BC | END 2022-07-26 23:59 | disposition EMS.NT | LOC: EMS 07:10 | DX: M54.50 Low back pain, unspecified (principal); W01.0XXA Fall on same level from slipping, tripping and stumbling without subsequent striking against object, initial encounter; Y92.009 Unspecified place in unspecified non-institutional (private) residence as the place of occurrence of the external cause ==